=== PATIENT | male | born 1945 | race Caucasian/White ===

== ENCOUNTER 2025-02-08 18:54 | Inpatient (IN) | payer MEDICARE, SELFPAY ==
[2025-02-08] VITALS (10 sets, daily range): BP systolic 149–166; BP diastolic 60–92; BMI 28.0
[2025-02-08 15:48] LABS: Hematocrit 38.0 % (39.0-52.0); Hemoglobin 11.5 g/dL (13.0-18.0); Mean Corp Hgb Conc. 30.3 g/dL (33.0-37.0); Mean Corpuscular Volume 79.8 fL (80.0-94.0); Nucleated Red Blood Cells % 0 % (-); Platelet Count 227 10^3/uL (130-400); Red Cell Dist. Width 16.9 % (11.5-14.5)
[2025-02-08 16:05] LABS: ALT (SGPT) 18 U/L (0-50); AST (SGOT) 21 U/L (17-59); Albumin 4.5 g/dl (3.5-5.0); Alkaline Phosphatase 106 U/L (38-126); Blood Urea Nitrogen 18 mg/dl (9-20); Calcium 9.4 mg/dl (8.4-10.2); Carbon Dioxide 24 mmol/L (22-30); Chloride 104 mmol/L (98-107); Glucose 97 mg/dl (70-99); Potassium 4.4 mmol/L (3.5-5.1); Sodium 136 mmol/L (135-145); Total Protein 7.1 g/dl (6.3-8.2); eGFR 56.58
[2025-02-08 16:19] LABS: Troponin I 0.107 ng/ml
--- NOTE | 2025-02-08 16:24 | ED.GENMED ---
History of Present Illness
<Víctor Romano PA-C - Last Filed: 02/08/25 17:41>
General
Chief Complaint: Breathing Problem
Source: patient
Exam Limitations: none
Time Seen by Provider: 02/08/25 16:07
History of Present Illness
History of Present Illness:
79-year-old male with history of peripheral vascular disease, bronchiectasis, GERD on aspirin and Plavix presents with worsening leg swelling shortness of breath and chest tightness over the past several days. He lives in [facility] and is
visiting for the holiday. He also notes that his about 2 weeks ago. He has never been diagnosed with congestive heart failure. He is never been told he has an abnormal EKG. He notes shortness of breath while my exam is ongoing but
denies any current chest pain. No recent travel or surgery. He does have stents in his legs. No other complaints at this time
Phy Exam
<Víctor Romano PA-C - Last Filed: 02/08/25 17:41>
Physical Exam
Physical Exam:
General: Well-appearing male no acute respiratory distress HEENT: Normal cephalic atraumatic
Heart: Regular rate and rhythm lungs: No obvious wheeze or rails
Abdomen is soft and nontender remedies: Significant pitting edema bilateral lower extremities spreading into the thighs
Skin is warm no rash
Scores
<Víctor Romano PA-C - Last Filed: 02/08/25 17:41>
Heart Failure Risk
Heart Failure Risk Score: Not Applicable
Course
<Víctor Romano PA-C - Last Filed: 02/08/25 17:41>
Orders/Labs/Results
Orders:
Orders
02/08/25 15:17
Electrocardiogram (*1) Urgent
Reason for Study: Atrial Fibrillation
02/08/25 15:18
EKG- Treatment ONCE
02/08/25 15:30
CMP [Comprehensive Metabolic Panel] Urgent
Complete Blood Count/With Diff Urgent
Ferritin Urgent
Iron Urgent
NT-proBNP Urgent
Total Iron Binding Urgent
Troponin I Urgent
02/08/25 16:24
CR Chest Portable - 1 View Urgent
Comment:
Reason For Exam: sob, chest pain
Reason Study Needs to be Portable: Patient Unstable
02/08/25 16:40
Echo 2D MMode Color/Doppler Urgent
Reason for Study: SOB, abnormal EKG, elevated trop
02/08/25 16:55
PTT Urgent
Comment: Obtain baseline before beginning heparin infusion if not already collected
Heparin Protocol- PTT Orders As Directed
PTT per Heparin protocol: -Obtain CBC and baseline PTT - if not already collected.
-Obtain PTT 6 hours from start of infusion. Then, every 6 hours until 2 consecutive
PTT's are therapeutic. Then, PTT Daily.
-With each rate change, obtain PTT every 6 hours until 2 consecutive PTT's are
therapeutic. Then, PTT Daily.
Notify MD As Directed
Notify physician if: PTT is greater than or equal to 200.
02/08/25 16:56
Heparin 4,000 units IV NOW STA
Nursing to Place Non Medication Order As Directed
Physician Order: PTT 6 hours after initial start of Heparin infusion
02/08/25 16:57
Furosemide [Lasix] 40 mg IV NOW STA
02/08/25 16:58
Add On- LAB Routine
Tests Added?: % sat, ferritin, serum iron, TIBC
02/08/25 17:00
Heparin 64507 Units/250 ml 25,000 units in 250 ml IV PER PROTOCOL
Weight to be used for heparin protocol in kilograms (kg):: 97.5
Protocol:: Cardiac Tx/Acute Coronary
PTT Goal Range to be used:: PTT 73 to 111 seconds
Order type:: Initial
INITIAL Infusion Dose (UNITS/KG/hr) & then follow protocol:: 12 units/kg/hr
Infusion Dose in UNITS/hr & then follow protocol (UNITS/hr):: 1,000
INFUSION RATE in mL/hr & then follow protocol (mL/hr):: 10
PTT less than or equal to 64 seconds:: Increase rate by 200 units/hr (+ 2 mL/hr)
PTT 64.1 to 72.9 seconds:: Increase rate by 100 units/hr (+ 1 mL/hr)
PTT 73 to 111 seconds:: Target Range. No change in rate.
PTT 111.1 to 130.9 seconds:: Decrease rate by 100 units/hr (- 1 mL/hr)
PTT 131 to 199.9 seconds:: HOLD for 1 hr. Then decrease rate by 200 units/hr (- 2 mL/hr)
PTT greater than or equal to 200 seconds:: HOLD for 2 hrs & Notify Provider. Then decrease by 200 units/hr (-
2 mL/hr)
Lab follow-up:: Each change, PTT q6h until 2 consecutive are therapeutic. Then PTT
daily.
Heparin 77396 Units/250 ml 25,000 units in 250 ml IV PER PROTOCOL
Weight to be used for heparin protocol in kilograms (kg):: 97.5
Protocol:: Cardiac Tx/Acute Coronary
PTT Goal Range to be used:: PTT 73 to 111 seconds
Order type:: Initial
INITIAL Infusion Dose (UNITS/KG/hr) & then follow protocol:: 12 units/kg/hr
Infusion Dose in UNITS/hr & then follow protocol (UNITS/hr):: 1,000
INFUSION RATE in mL/hr & then follow protocol (mL/hr):: 10
PTT less than or equal to 64 seconds:: Increase rate by 200 units/hr (+ 2 mL/hr)
PTT 64.1 to 72.9 seconds:: Increase rate by 100 units/hr (+ 1 mL/hr)
PTT 73 to 111 seconds:: Target Range. No change in rate.
PTT 111.1 to 130.9 seconds:: Decrease rate by 100 units/hr (- 1 mL/hr)
PTT 131 to 199.9 seconds:: HOLD for 1 hr. Then decrease rate by 200 units/hr (- 2 mL/hr)
PTT greater than or equal to 200 seconds:: HOLD for 2 hrs & Notify Provider. Then decrease by 200 units/hr (-
2 mL/hr)
Lab follow-up:: Each change, PTT q6h until 2 consecutive are therapeutic. Then PTT
daily.
Pharmacy Request to Place See Dose Instructions IV DIRECTED
02/08/25 21:00
Electrocardiogram (*1) Routine
Reason for Study: Abnormal EKG
Troponin I Q6H
02/09/25 03:00
Troponin I Q6H
02/09/25 06:00
Electrocardiogram (*1) IN AM
Reason for Study: Abnormal EKG
02/10/25 06:00
Complete Blood Count/No Diff Q2D
Comment: Notify MD if platelet count is <130,000 or decreases by 50% from baseline
02/12/25 06:00
Complete Blood Count/No Diff Q2D
Comment: Notify MD if platelet count is <130,000 or decreases by 50% from baseline
02/14/25 06:00
Complete Blood Count/No Diff Q2D
Comment: Notify MD if platelet count is <130,000 or decreases by 50% from baseline
02/16/25 06:00
Complete Blood Count/No Diff Q2D
Comment: Notify MD if platelet count is <130,000 or decreases by 50% from baseline
02/18/25 06:00
Complete Blood Count/No Diff Q2D
Comment: Notify MD if platelet count is <130,000 or decreases by 50% from baseline
02/20/25 06:00
Complete Blood Count/No Diff Q2D
Comment: Notify MD if platelet count is <130,000 or decreases by 50% from baseline
02/22/25 06:00
Complete Blood Count/No Diff Q2D
Comment: Notify if platelet count is <130,000 or decreases by 50% from baseline
02/24/25 06:00
Complete Blood Count/No Diff Q2D
Comment: Notify MD if platelet count is <130,000 or decreases by 50% from baseline
Abnormal Lab Results
02/08/25
15:30
Hgb 11.5 L g/dL
(13.0-18.0)
Hct 38.0 L %
(39.0-52.0)
MCV 79.8 L fL
(80.0-94.0)
MCH 24.2 L pg
(27.0-31.0)
MCHC 30.3 L g/dL
(33.0-37.0)
RDW 16.9 H %
(11.5-14.5)
Absolute Lymphs (auto) 0.9 L 10^3/uL
(1.2-3.4)
Lymphocytes % 15.2 L %
(20.5-51.1)
Monocytes % 10.2 H %
(1.7-9.3)
Iron 34 L ug/dl
(49-181)
Troponin I 0.107 H* ng/ml
02/08/25 15:30
02/08/25 15:30
Vital Signs
Initial and Last Documented VS:
Initial Vital Signs
Temp Pulse Resp BP Pulse Ox
97.7 F 58 16 158/67 91
02/08/25 15:08 02/08/25 15:08 02/08/25 15:08 02/08/25 15:08 02/08/25 15:08
Last Documented Vital Signs
Temp Pulse Resp BP Pulse Ox
97.7 F 56 20 163/60 96
02/08/25 15:08 02/08/25 16:00 02/08/25 16:00 02/08/25 16:00 02/08/25 16:27
<Wil Judd MD - Last Filed: 02/08/25 17:27>
Orders/Labs/Results
Orders:
Orders
02/08/25 15:17
Electrocardiogram (*1) Urgent
Reason for Study: Atrial Fibrillation
02/08/25 15:18
EKG- Treatment ONCE
02/08/25 15:30
CMP [Comprehensive Metabolic Panel] Urgent
Complete Blood Count/With Diff Urgent
Ferritin Urgent
Iron Urgent
NT-proBNP Urgent
Total Iron Binding Urgent
Troponin I Urgent
02/08/25 16:24
CR Chest Portable - 1 View Urgent
Comment:
Reason For Exam: sob, chest pain
Reason Study Needs to be Portable: Patient Unstable
02/08/25 16:40
Echo 2D MMode Color/Doppler Urgent
Reason for Study: SOB, abnormal EKG, elevated trop
02/08/25 16:55
PTT Urgent
Comment: Obtain baseline before beginning heparin infusion if not already collected
Heparin Protocol- PTT Orders As Directed
PTT per Heparin protocol: -Obtain CBC and baseline PTT - if not already collected.
-Obtain PTT 6 hours from start of infusion. Then, every 6 hours until 2 consecutive
PTT's are therapeutic. Then, PTT Daily.
-With each rate change, obtain PTT every 6 hours until 2 consecutive PTT's are
therapeutic. Then, PTT Daily.
Notify MD As Directed
Notify physician if: PTT is greater than or equal to 200.
02/08/25 16:56
Heparin 4,000 units IV NOW STA
Nursing to Place Non Medication Order As Directed
Physician Order: PTT 6 hours after initial start of Heparin infusion
02/08/25 16:57
Furosemide [Lasix] 40 mg IV NOW STA
02/08/25 16:58
Add On- LAB Routine
Tests Added?: % sat, ferritin, serum iron, TIBC
02/08/25 17:00
Heparin 01199 Units/250 ml 25,000 units in 250 ml IV PER PROTOCOL
Weight to be used for heparin protocol in kilograms (kg):: 97.5
Protocol:: Cardiac Tx/Acute Coronary
PTT Goal Range to be used:: PTT 73 to 111 seconds
Order type:: Initial
INITIAL Infusion Dose (UNITS/KG/hr) & then follow protocol:: 12 units/kg/hr
Infusion Dose in UNITS/hr & then follow protocol (UNITS/hr):: 1,000
INFUSION RATE in mL/hr & then follow protocol (mL/hr):: 10
PTT less than or equal to 64 seconds:: Increase rate by 200 units/hr (+ 2 mL/hr)
PTT 64.1 to 72.9 seconds:: Increase rate by 100 units/hr (+ 1 mL/hr)
PTT 73 to 111 seconds:: Target Range. No change in rate.
PTT 111.1 to 130.9 seconds:: Decrease rate by 100 units/hr (- 1 mL/hr)
PTT 131 to 199.9 seconds:: HOLD for 1 hr. Then decrease rate by 200 units/hr (- 2 mL/hr)
PTT greater than or equal to 200 seconds:: HOLD for 2 hrs & Notify Provider. Then decrease by 200 units/hr (-
2 mL/hr)
Lab follow-up:: Each change, PTT q6h until 2 consecutive are therapeutic. Then PTT
daily.
Heparin 64430 Units/250 ml 25,000 units in 250 ml IV PER PROTOCOL
Weight to be used for heparin protocol in kilograms (kg):: 97.5
Protocol:: Cardiac Tx/Acute Coronary
PTT Goal Range to be used:: PTT 73 to 111 seconds
Order type:: Initial
INITIAL Infusion Dose (UNITS/KG/hr) & then follow protocol:: 12 units/kg/hr
Infusion Dose in UNITS/hr & then follow protocol (UNITS/hr):: 1,000
INFUSION RATE in mL/hr & then follow protocol (mL/hr):: 10
PTT less than or equal to 64 seconds:: Increase rate by 200 units/hr (+ 2 mL/hr)
PTT 64.1 to 72.9 seconds:: Increase rate by 100 units/hr (+ 1 mL/hr)
PTT 73 to 111 seconds:: Target Range. No change in rate.
PTT 111.1 to 130.9 seconds:: Decrease rate by 100 units/hr (- 1 mL/hr)
PTT 131 to 199.9 seconds:: HOLD for 1 hr. Then decrease rate by 200 units/hr (- 2 mL/hr)
PTT greater than or equal to 200 seconds:: HOLD for 2 hrs & Notify Provider. Then decrease by 200 units/hr (-
2 mL/hr)
Lab follow-up:: Each change, PTT q6h until 2 consecutive are therapeutic. Then PTT
daily.
Pharmacy Request to Place See Dose Instructions IV DIRECTED
02/08/25 21:00
Electrocardiogram (*1) Routine
Reason for Study: Abnormal EKG
Troponin I Q6H
02/09/25 03:00
Troponin I Q6H
02/09/25 06:00
Electrocardiogram (*1) IN AM
Reason for Study: Abnormal EKG
02/10/25 06:00
Complete Blood Count/No Diff Q2D
Comment: Notify MD if platelet count is <130,000 or decreases by 50% from baseline
02/12/25 06:00
Complete Blood Count/No Diff Q2D
Comment: Notify MD if platelet count is <130,000 or decreases by 50% from baseline
02/14/25 06:00
Complete Blood Count/No Diff Q2D
Comment: Notify MD if platelet count is <130,000 or decreases by 50% from baseline
02/16/25 06:00
Complete Blood Count/No Diff Q2D
Comment: Notify MD if platelet count is <130,000 or decreases by 50% from baseline
02/18/25 06:00
Complete Blood Count/No Diff Q2D
Comment: Notify MD if platelet count is <130,000 or decreases by 50% from baseline
02/20/25 06:00
Complete Blood Count/No Diff Q2D
Comment: Notify MD if platelet count is <130,000 or decreases by 50% from baseline
02/22/25 06:00
Complete Blood Count/No Diff Q2D
Comment: Notify MD if platelet count is <130,000 or decreases by 50% from baseline
02/24/25 06:00
Complete Blood Count/No Diff Q2D
Comment: Notify MD if platelet count is <130,000 or decreases by 50% from baseline
Abnormal Lab Results
02/08/25
15:30
Hgb 11.5 L g/dL
(13.0-18.0)
Hct 38.0 L %
(39.0-52.0)
MCV 79.8 L fL
(80.0-94.0)
MCH 24.2 L pg
(27.0-31.0)
MCHC 30.3 L g/dL
(33.0-37.0)
RDW 16.9 H %
(11.5-14.5)
Absolute Lymphs (auto) 0.9 L 10^3/uL
(1.2-3.4)
Lymphocytes % 15.2 L %
(20.5-51.1)
Monocytes % 10.2 H %
(1.7-9.3)
Iron 34 L ug/dl
(49-181)
Troponin I 0.107 H* ng/ml
02/08/25 15:30
02/08/25 15:30
Vital Signs
Initial and Last Documented VS:
Initial Vital Signs
Temp Pulse Resp BP Pulse Ox
97.7 F 58 16 158/67 91
02/08/25 15:08 02/08/25 15:08 02/08/25 15:08 02/08/25 15:08 02/08/25 15:08
Last Documented Vital Signs
Temp Pulse Resp BP Pulse Ox
97.7 F 56 20 163/60 96
02/08/25 15:08 02/08/25 16:00 02/08/25 16:00 02/08/25 16:00 02/08/25 16:27
<Víctor Romano PA-C - Last Filed: 02/08/25 17:41>
MDM/Problems Addressed
Differential Diagnosis Includes:
Patient here with chest tightness and shortness of breath worsening over several days. Consider ACS versus CHF. Versus pneumonia versus bronchiectasis exacerbation.
Patient does appear volume overloaded. He is uncertain of weight gain but BNP is 12,000. EKG shows sinus bradycardia with T wave inversions laterally. Troponin is 0.1. We discussed emergency room attending and cardiology. Chest x-ray pending I
suspect patient will need to stay in the hospital for CHF versus ACS
<Víctor Romano PA-C - Last Filed: 02/08/25 17:41>
*Pulse Oximetry
SaO2: 96
Oxygen Mode of Delivery: Room air
Patient hypoxic: no
*Critical Care Note
Total Time (30-74mins, 75-104mins- exclusive of procedures): Not Applicable
<Víctor Romano PA-C - Last Filed: 02/08/25 17:41>
Update Note
Update Note:
Last troponin is 0.1 with BNP of over 12,000. Chest x-ray shows mild cardiomegaly and pulmonary edema. Discussed with emergency room attending as well as cardiology. Cardiology did not see patient ordered echocardiogram. Heparin Lasix ordered.
Plans to admit to hospitalist service to the [facility]
ED Attending Note
<Víctor Romano PA-C - Last Filed: 02/08/25 17:41>
-
Portions of this chart may have been created with voice recognition software.� Occasional wrong word or��sound alike� substitutions may have occurred due to the inherent limitations of voice recognition software.
<Wil Judd MD - Last Filed: 02/08/25 17:27>
ED Attending Note
Patient seen and examined by attending physician: Yes
I performed the substantive portion of visit, reviewed & personally made and approve the management plan that is documented in note by myself or CECY.: Yes
ED Attending Note:
79-year-old male complaining of exertional shortness of breath and chest pressure and nocturnal dyspnea on exertion and PND. Progressive over 10 days. No history of CAD. History of hypertension cholesterol atrial fibrillation. Patient is on
clopidogrel. History of vascular disease.
On exam patient is nontoxic no distress. Lungs are clear and equal. Do not hear any obvious rales. Heart regular rate and rhythm no murmur. Abdomen nontender. Extremity with chronic vascular changes. Perfusing well however. Grossly nonfocal.
EKG shows ischemic changes 20. Troponin indeterminant. proBNP elevated.
Patient clearly describing unstable angina. Refer to cardiology. Diuretics heparin and admission for further care.
Discharge Plan
Departure
Patient Disposition: Admit
Date of Disposition: 02/08/25
Time of Disposition: 17:41
Presentation/result/management discussed w/ accepting MD/DO: Hospitalist
Discharge Problem:
Chest pain
Prescriptions:
No Action
atorvastatin [Lipitor] 80 mg Tablet
80 mg PO DAILY
acetaminophen [Tylenol] 325 mg Tablet
650 mg PO Q6HPRN PRN (Reason: mild pain)
famotidine [Pepcid AC] 10 mg Tablet
10 mg PO DAILY
azithromycin 250 mg Tablet
250 mg PO MOWEFR
diltiazem HCl 360 mg Capsule,Extended Release 24 Hr
360 mg PO DAILY
clopidogrel [Plavix] 75 mg Tablet
75 mg PO DAILY
aspirin 81 mg Tablet,Delayed Release (Dr/Ec)
81 mg PO DAILY
losartan 100 mg Tablet
100 mg PO DAILY
loratadine 10 mg Tablet
10 mg PO DAILY
metoprolol tartrate 25 mg Tablet
12.5 mg PO BID
Interventions
Interventions:
*Risk Screen - Suicide Last Done: 02/08/25 15:09
*General Assessment Last Done: 02/08/25 15:53
*Neglect/Abuse Screening Last Done: 02/08/25 15:09
*ED- Fall Risk Assessment Last Done: 02/08/25 15:53
*ED COVID-19 Vaccine History Last Done: 02/08/25 15:47
*ED Influenza Vaccine History Last Done: 02/08/25 15:47
ED- Cardiac Assessment Last Done: 02/08/25 15:53
ED- Pulmonary Assessment Last Done: 02/08/25 15:53
Discharge Date and Time
Print Language: GEORGIAN
--- NOTE | 2025-02-08 16:36 | CON.CAR ---
Addendum entered and electronically signed by Jose Blackwood DO 02/08/25 18:02:
I saw and examined the patient.
The Apparel Embroidery Digitizer's note was reviewed and I agree with the note.
Comment:
Plan:
Primary Rat Breeder: Dr. Funk with [facility] in [place], [place]
Assessment:
Presentation with SOB, LE edema
Acute CHF, unknown type
Abnormal EKG
Elevated troponin
PVD with prior LE stents
bronchiectasis
GERD
ECHO 02/08/2025: pending
Plan:
-Patient presents to [facility] due to worsening SOB, LE edema over the past 10 days. Found to have evidence of acute CHF with proBNP 59235. He has also had chest discomfort at times with exertion.
Evidence of volume overload with elevated proBNP 12,000.
Start Lasix 40 mg IV, likely increased to twice daily dosing.
Urgent echo with mildly reduced EF 30 to 35% with mild to moderate mitral regurgitation and moderate tricuspid regurgitation with severe pulmonary hypertension pulmonary artery pressure 62 mmHg
Monitor daily weights, I's and O's and creatinine.
Creatinine slightly elevated at 1.3, monitor with diuresis
With abnormal troponin 0.1, abnormal EKG with lateral T wave inversions, start IV heparin
Trend troponins and EKGs
Cont Metoprolol and losartan. Monitor cr
Continue aspirin and Plavix. The patient had been on Plavix for peripheral arterial disease.
The patient had prior stress testing earlier this year prior to his lower extremity procedure. He states he has had multiple procedures on his legs.
In light of his troponin, abnormal echo, heart failure and clinical scenario, likely cardiac catheterization during this hospitalization, prior to discharge
Discussed with ER, daughter at bedside
HPI: Patient is a 79-year-old male with past medical history of PVD, bronchiectasis, GERD who presented to [facility] ER due to worsening bilateral lower extremity edema, shortness of breath, chest tightness over the past 10 days. His
January 23 he states this was a stressor for him. Over the past 10 days he has noticed he has woken up typically in the morning with some chest discomfort and shortness of breath, typically pain will dissipate by around 10 AM. He also has had
worsening lower extremity edema which he states is unusual for him. He woke up this morning at 3 AM with the chest discomfort and shortness of breath and symptoms were more severe and persisted, prompting ER evaluation. Typically he resides in
[facility] and is visiting for the . He has been seen by inspector fuel hose in [place], and daughter is working on pulling up records. On arrival to the emergency room, proBNP elevated on arrival at 12,000. EKG with evidence of
lateral T wave abnormality with no prior to compare and troponin of 0.1. Cardiology consulted for evaluation. No present chest pain. Patient is chronically on aspirin and Plavix due to history of lower extremity stents. He denies any history of
coronary stenting, heart failure, cardiomyopathy, or valvular heart disease. He reports it was 'implied' that he had arrhythmia, but no clear history.
Original Note:
Consultation
Consultation Request
Date/Time Consultation Performed: 02/08/25
Requesting Provider: Deandre Melo PA-C
Performing Provider: Delmy Garcia PA-C for Dr. Blackwood
Reason for Consultation: EKG changes, elevated troponin, CHF
Medical History
-
Chief Complaint: SOB
History of Present Illness:
Patient is a 79-year-old male with past medical history of PVD, bronchiectasis, GERD who presented to [facility] ER due to worsening bilateral lower extremity edema, shortness of breath, chest tightness over the past 10 days. His January
he states this was a stressor for him. Over the past 10 days he has noticed he has woken up typically in the morning with some chest discomfort and shortness of breath, typically pain will dissipate by around 10 AM. He also has had worsening
lower extremity edema which he states is unusual for him. He woke up this morning at 3 AM with the chest discomfort and shortness of breath and symptoms were more severe and persisted, prompting ER evaluation. Typically he resides in [place] and is visiting for the . He has been seen by inspector fuel hose in [place], and daughter is working on pulling up records. On arrival to the emergency room, proBNP elevated on arrival at 12,000. EKG with evidence of lateral
T wave abnormality with no prior to compare and troponin of 0.1. Cardiology consulted for evaluation. No present chest pain. Patient is chronically on aspirin and Plavix due to history of lower extremity stents. He denies any history of coronary
stenting, heart failure, cardiomyopathy, or valvular heart disease. He reports it was 'implied' that he had arrhythmia, but no clear history.
PMH:
PVD with prior LE stents
bronchiectasis
GERD
Past Medical History
Past Medical History: Other (in HPI)
Social History
Personal:
Living: Alone
Employment: Retired
Family History
Family History: Reviewed & Not Pertinent
Allergies / Home Medications
Allergy/AdvReac Type Severity Reaction Status Date / Time
No Allergy Information Allergy Unverified 02/08/25 15:07
Available
Review of Systems
-
History Source: Patient
All other systems: Negative unless noted
Physical Exam
Vital Signs
Temp Pulse Resp BP Pulse Ox
97.7 F 56 20 163/60 96
02/08/25 15:08 02/08/25 16:00 02/08/25 16:00 02/08/25 16:00 02/08/25 16:27
Lab Results
02/08/25 15:30
02/08/25 15:30
Troponin I 0.107 ng/ml H* 02/08/25 15:30
Nlr-H-Kftpzfdtbin Pept 15941 pg/ml 02/08/25 15:30
Physical Exam
General: Well Developed, Well Nourished and No Apparent Distress
HEENT: Normocephalic and Moist Mucous Membranes
Respiratory: Crackles and Non Labored Respirations
Cardiac: Regular Rhythm
Musculoskeletal: No Clubbing, No Cyanosis and Edema
Skin: Warm and Dry
Neuro: AO x 3 and Nonfocal/Grossly Intact
Psych: Calm
Impression / Plan
-
Primary Rat Breeder: Dr. Funk with [facility] in [place], [place]
Assessment:
Presentation with SOB, LE edema
Acute CHF, unknown type
Abnormal EKG
Elevated troponin
PVD with prior LE stents
bronchiectasis
GERD
ECHO 02/08/2025: pending
Plan:
-Patient presents to [facility] due to worsening SOB, LE edema over the past 10 days. Found to have evidence of acute CHF with proBNP 05943.
-CXR pending
-No history of known CHF
-will attempt to diurese with IV lasix 40mg daily with now dose. Cr 1.3, follow w/ diuresis.
-Follow daily weights, I&Os.
-Trop 0.1 and abnormal EKG with lateral T wave abnormality. Trend trops and EKGs.
-Daughter pulling up old cardiology records on [employer].
-check urgent echo
-initiate IV heparin and continue asa, plavix. hgb 11.5. check iron studies
-likely plan for cath this admission
HPI: Patient is a 79-year-old male with past medical history of PVD, bronchiectasis, GERD who presented to [facility] ER due to worsening bilateral lower extremity edema, shortness of breath, chest tightness over the past 10 days. His
January 23 he states this was a stressor for him. Over the past 10 days he has noticed he has woken up typically in the morning with some chest discomfort and shortness of breath, typically pain will dissipate by around 10 AM. He also has had
worsening lower extremity edema which he states is unusual for him. He woke up this morning at 3 AM with the chest discomfort and shortness of breath and symptoms were more severe and persisted, prompting ER evaluation. Typically he resides in
[facility] and is visiting for the . He has been seen by inspector fuel hose in [place], and daughter is working on pulling up records. On arrival to the emergency room, proBNP elevated on arrival at 12,000. EKG with evidence of
lateral T wave abnormality with no prior to compare and troponin of 0.1. Cardiology consulted for evaluation. No present chest pain. Patient is chronically on aspirin and Plavix due to history of lower extremity stents. He denies any history of
coronary stenting, heart failure, cardiomyopathy, or valvular heart disease. He reports it was 'implied' that he had arrhythmia, but no clear history.
Data Reviewed
-
EKG: Tracing Personally Visualized and interpreted
Radiology: Report Reviewed by me
Labs: Labs Reviewed by me
Old Records: Reviewed
[2025-02-08 17:35] LABS: Iron 34 ug/dl (49-181)
[2025-02-08 17:43] LABS: Total Iron Binding Capacity 395 ug/dl (261-462)
--- NOTE | 2025-02-08 17:47 | HPS.HSE ---
Family Physician
-
Family Physician:
Chief Complaint
-
Chest Pain, Lower Extremity Edema and Shortness of Breath
History of Present Illness
Patient is a 79 y/o male past medical history of PAD, hypertension, hyperlipidemia, and bronchiectasis who presents with lower extremity edema, shortness of breath and chest tightness worsening over the last 10 days. Patient notes symptoms were
much worse today prompting him to come to the emergency department for evaluation. Patient denies any prior history of coronary artery disease or stenting, heart failure, cardiomyopathy or valvular heart disease.
Medical History
Past Medical History
Past Medical History: Reports Other
Additional Past Medical History:
Peripheral Arterial Disease s/p RLE Stents
Arrhythmia
Essential Hypertension
Hyperlipidemia
Atrophic Right Kidney
Bronchiectasis
GERD
Past Surgical History: Reports Other
Additional Past Surgical History:
RLE Stents
Multiple Surgeriesfor wounds during [place]
Social History
Tobacco: Former Smoker (Quit ~25 years )
Alcohol: Daily
Family History
Family History: Not pertinent
Allergies / Home Medications
Allergies reflects when Allergies were last updated in [facility].
Home Medications with original date entered in [facility]
Allergy/Medication List:
Allergies
Allergy/AdvReac Type Severity Reaction Status Date / Time
hydrochlorothiazide Allergy Mild Nausea Verified 02/08/25 18:29
lisinopril Allergy Nausea Verified 02/08/25 18:29
Home Medications
acetaminophen 325 mg tablet (Tylenol) 650 mg PO Q6HPRN PRN mild pain 02/08/25
aspirin 81 mg tablet,delayed release 81 mg PO DAILY Blood Pressure 02/08/25
atorvastatin 80 mg tablet (Lipitor) 80 mg PO DAILY High Cholesterol 02/08/25
azithromycin 250 mg tablet 250 mg PO MOWEFR Infection 02/08/25
clopidogrel 75 mg tablet (Plavix) 75 mg PO DAILY Blood Clot Prevention/Tx 02/08/25
diltiazem HCl 360 mg capsule,24 hr,extended release 360 mg PO DAILY Heart Disease/Condition 02/08/25
famotidine 10 mg tablet (Pepcid AC) 10 mg PO DAILY Gastrointestinal Issue 02/08/25
loratadine 10 mg tablet 10 mg PO DAILY Allergies 02/08/25
losartan 100 mg tablet 100 mg PO DAILY Blood Pressure 02/08/25
metoprolol tartrate 25 mg tablet 12.5 mg PO BID Heart Disease/Condition 02/08/25
Review of Systems
-
A 12 point ROS was completed and negative except as noted: Yes
Constitutional: Denies Fever or Chills
Respiratory: Reports Trouble Breathing
Cardiac: Reports Chest Pain; Denies Palpitations
Musculoskeletal: Reports Edema
Physical Exam
Vital Signs
Vital Signs
Temp Pulse Resp BP Pulse Ox
97.7 F 56 20 163/60 96
02/08/25 15:08 02/08/25 16:00 02/08/25 16:00 02/08/25 16:00 02/08/25 16:27
Physical Exam
General: Comfortable and Conversant
HEENT: Anicteric and Moist mucous membranes
Respiratory: Rales (Bilateral bases, right greater left)
Cardiac: S1/S2, Regular Rhythm and Murmur
GI: Soft and Non Tender
Genito-urinary: Clear Urine
Musculoskeletal: No Clubbing, No Cyanosis and Other (Pitting edema bilateral lower extremities extending from ankles up to the thighs)
Skin: Warm and Dry
Neuro: Awake, Alert, Oriented and Nonfocal/grossly intact
Psych: Calm
Laboratory Results
-
02/08/25 15:30
02/08/25 15:30
Laboratory Results
Total Bilirubin 0.8 mg/dl (0.2-1.3) 02/08/25 15:30
AST 21 U/L (17-59) 02/08/25 15:30
ALT 18 U/L (0-50) 02/08/25 15:30
Alkaline Phosphatase 106 U/L (38-126) 02/08/25 15:30
Troponin I 0.107 ng/ml H* 02/08/25 15:30
Data Reviewed
-
Lab Data: Labs Reviewed by me
Impression/Plan
-
Acute Heart Failure with Reduced EF
-Echo Jan 2025: Top normal left ventricular chamber size with moderately reduced left ventricular systolic function with ejection fraction 30 to 35%. Global hypokinesis. Mild left ventricular hypertrophy. Mild to moderate mitral regurgitation.
-Appreciate Cardiology Consult
-Continue Lasix 40mg IV Daily
-Monitor Daily Weights
Elevated Troponin, clinical concern for ischemia with inverted T waves in lateral leads
-Continue to trend troponin
-Continue heparin drip
-Continue aspirin and clopidogrel
-Tentative plan for cardiac cath on Thursday
Iron-Deficiency Anemia
-Patient reports he did have a colonoscopy earlier this year and had a precancerous polyp removed. He was scheduled for repeat colonoscopy in December which he cancelled due to his 's illness
-Heme-test stools
-Consider starting iron supplement
Unspecified Arrhythmia
-Continue metoprolol and diltiazem
Essential Hypertension
-Continue diltiazem, losartan and metoprolol
Hyperlipidemia
-Continue atorvastatin
Bronchiectasis
-Continue azithromycin
GERD
-Continue Pepcid
DVT proph: Heparin Drip
Code Status: Full Code
[2025-02-08 17:59] LABS: APTT 31.0 Sec (23.4-35.0)
[2025-02-08] MEDS: LASIX 40 MG IV (18:02)
[2025-02-08] MEDS: HEPARIN 25000 UNITS/250 ML IV (18:06)
[2025-02-08] MEDS: HEPARIN 4000 UNITS IV (18:06)
--- NOTE | 2025-02-08 18:20 | W.PN.UPDATE ---
Update Note
Progress Note Update
Seen and examined by me independently in collaboration with ZABRINA Esparza.
Past medical history/social history/medication/allergies reviewed.
Lab data and imaging data reviewed.
Patient who is behaving at his 's which was 2 weeks ago is with the family here in town. He is from [place].
He was having progressive shortness of breath and chest discomfort on lower extremity edema.
No prior history of [place]/CAD or CHF.
Heart sound S1 plus S2 heard regular no murmur evident. Chest sounds clear.
Hepatojugular reflux present. Bilateral lower extremity edema present.
Troponin 0.1. BNP elevated 12,000 with normal creatinine. EKG shows a sinus rhythm with a lateral ST depressions concerning for ischemia
Echo this evening shows moderately reduced EF with ejection fraction of 30 to 35%, global hypokinesis and LVH. Mild to moderate MR noted. Moderate tricuspid regurgitation with pulmonary artery pressure of 62 noted. Has prior history of
bronchiectasis.
Chest x-ray report pending but pulmonary vascular congestion evident [my read].
Clinical picture of acute heart failure with reduced EF. EKG is concerning for ischemia but troponins are only mildly elevated. No chest pain currently.
Admit to IVU. Start on IV heparin. Continue with antiplatelet agents per cardiology.
Start on IV Lasix.
Mildly low hemoglobin 11.5 noted, MCV is borderline low , and iron iron studies raises concern for iron deficiency. Patient apparently had blood in the stool which led on to colonoscopy which showed polyp which was apparently cancerous and had to
go in and have another colonoscopy for the polyp removal. He is due for another colonoscopy in December and then his got sick.
Check heme test stools. Follow ferritin. Follow hemoglobin.
Full code
Discussed with daughter at bedside
[2025-02-08 19:14] LABS: Ferritin 47.3 ng/ml (17.9-464.0)
--- NOTE | 2025-02-08 19:45 | PTCARENOTE ---
Pt admitted from ED to room 2244, aaox3, voicing no complaints of cp or SOB. Heparin gtt infusing at 1000cc/hr. SR on tele, HR mid 70's, Pox 95% @ 2L via NC. Admission questioners and skin assessment completed. Updated pt and daughter on POC and in
agreement. Call light within reach.
[2025-02-08] MEDS: LOPRESSOR 12.5 MG PO (20:45)
[2025-02-09] VITALS (8 sets, daily range): BP systolic 122–167; BP diastolic 52–76; BMI 27.5
[2025-02-09 00:29] LABS: APTT 56.5 Sec (23.4-35.0)
[2025-02-09 00:46] LABS: Troponin I 0.100 ng/ml
[2025-02-09 04:41] LABS: Blood Urea Nitrogen 19 mg/dl (9-20); Calcium 9.1 mg/dl (8.4-10.2); Carbon Dioxide 26 mmol/L (22-30); Chloride 106 mmol/L (98-107); Estimated Creatinine Clearance 57 ml/min; Glucose 91 mg/dl (70-99); HDL Cholesterol 52 mg/dl; LDL Cholesterol, Calculated 31 mg/dl; Magnesium 1.8 mg/dl (1.6-2.3); Potassium 4.0 mmol/L (3.5-5.1); Sodium 136 mmol/L (135-145); Very Low Density Lipoprotein 15 mg/dl (0-30); eGFR > 60.00
[2025-02-09] MEDS: LASIX 40 MG IV ×2 (06:18→17:59)
--- NOTE | 2025-02-09 06:45 | PTCARENOTE ---
Pt woke up complaining of difficulty breathing and some chest tightness but stating that is 'not as bad as yesterday'. BP 150/72, Pox 97% on 2L, lungs diminished w/ scattered fine crackles at bases. adjunct faculty for medical terminology DECK WORKER made aware, new order to give 0800
dose lasix now. Pt sitting up higher in bed,stating that is feeling better already shortly after lasix was given and was repositioned in bed.
--- NOTE | 2025-02-09 07:29 | W.PN.CARDCBS ---
Today's Communication / Plan
-
Likely progressive heart failure with significant volume overload. He continues with significant orthopnea. Lasix was given early a.m. February 09.
Increase Lasix to 40 mg IV twice daily
Monitor I's and O's, daily weights and creatinine. Creatinine slightly improved from 1.3 to 1.2 with diuresis.
Reviewed urgent echo with patient from February 08, 2025. With ejection fraction 30 to 35%, abnormal EKG and non-STEMI, discussed cardiac catheterization left heart and he was agreeable to this. This will be scheduled for February 10, 2025.
Continue IV heparin anticoagulation
Continue aspirin and Plavix. The patient had been on Plavix for peripheral arterial disease.
With microcytic anemia, primary service heme testing stools
Urgent echo with mildly reduced EF 30 to 35% with mild to moderate mitral regurgitation and moderate tricuspid regurgitation with severe pulmonary hypertension pulmonary artery pressure 62 mmHg
Monitor daily weights, I's and O's and creatinine.
Creatinine slightly elevated at 1.3, monitor with diuresis
Cont beta-jenifer and transition metoprolol to Coreg 12.5 mg twice daily and likely continue to titrate.
Continue outpatient losartan 100 mg daily.
Would eventually wean off Cardizem if possible given HF but may need currently for HTN
Eventual Aldactone and consider SGLT2 inhibitor.
The patient had prior stress testing earlier this year prior to his lower extremity procedure. He states he has had multiple procedures on his legs.
Discussed with daughter Elizabeth Alvarez via telephone, cell number [phone]
Impression / Plan
-
.
Primary Batch Trucker: Dr. Funk with [facility] in [place], [place]
Impression:
Presentation with SOB, LE edema
Acute on subacute heart failure with reduced LV function
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
Abnormal EKG with lateral ST-T wave changes
Elevated troponin peak 0.1
Mild to moderate mitral regurgitation
Moderate tricuspid regurgitation with severe pulmonary hypertension, PASP 62 mmHg
Microcytic anemia
history PVD with prior LE stents
Bronchiectasis
GERD
Past smoker quit 25 years ago
Daily alcohol, 2 drinks a day
ECHO 02/08/2025: Top normal left ventricular chamber size with moderately reduced left ventricular systolic function with ejection fraction 30 to 35%. Global hypokinesis. Mild left ventricular hypertrophy. Mild to moderate mitral
regurgitation.Moderate tricuspid regurgitation pulmonary artery pressure 62 mmHg, severe pulmonary hypertension.
Plan:
-Patient presents to [facility] due to worsening SOB, LE edema over the past 10 days. Found to have evidence of acute CHF with proBNP 24361. He has also had chest discomfort at times with exertion.
Likely progressive heart failure with significant volume overload. He continues with significant orthopnea. Lasix was given early a.m. February 09.
Increase Lasix to 40 mg IV twice daily
Monitor I's and O's, daily weights and creatinine. Creatinine slightly improved from 1.3 to 1.2 with diuresis.
Reviewed urgent echo with patient from February 08, 2025. With ejection fraction 30 to 35%, abnormal EKG and non-STEMI, discussed cardiac catheterization left heart and he was agreeable to this. This will be scheduled for February 10, 2025.
Continue IV heparin anticoagulation
Continue aspirin and Plavix. The patient had been on Plavix for peripheral arterial disease.
With microcytic anemia, primary service heme testing stools
Urgent echo with mildly reduced EF 30 to 35% with mild to moderate mitral regurgitation and moderate tricuspid regurgitation with severe pulmonary hypertension pulmonary artery pressure 62 mmHg
Monitor daily weights, I's and O's and creatinine.
Creatinine slightly elevated at 1.3, monitor with diuresis
Cont beta-jenifer and transition metoprolol to Coreg 12.5 mg twice daily and likely continue to titrate.
Continue outpatient losartan 100 mg daily.
Would eventually wean off Cardizem if possible given HF but may need currently for HTN
Eventual Aldactone and consider SGLT2 inhibitor.
The patient had prior stress testing earlier this year prior to his lower extremity procedure. He states he has had multiple procedures on his legs.
Discussed with daughter Elizabeth Alvarez via telephone, cell number [phone]
HPI: Patient is a 79-year-old male with past medical history of PVD, bronchiectasis, GERD who presented to [facility] ER due to worsening bilateral lower extremity edema, shortness of breath, chest tightness over the past 10 days. His
January 23 he states this was a stressor for him. Over the past 10 days he has noticed he has woken up typically in the morning with some chest discomfort and shortness of breath, typically pain will dissipate by around 10 AM. He also has had
worsening lower extremity edema which he states is unusual for him. He woke up this morning at 3 AM with the chest discomfort and shortness of breath and symptoms were more severe and persisted, prompting ER evaluation. Typically he resides in
[facility] and is visiting for the . He has been seen by staff radiation therapist in [place], and daughter is working on pulling up records. On arrival to the emergency room, proBNP elevated on arrival at 12,000. EKG with evidence of
lateral T wave abnormality with no prior to compare and troponin of 0.1. Cardiology consulted for evaluation. No present chest pain. Patient is chronically on aspirin and Plavix due to history of lower extremity stents. He denies any history of
coronary stenting, heart failure, cardiomyopathy, or valvular heart disease. He reports it was 'implied' that he had arrhythmia, but no clear history.
Progress Note - Batch Trucker
Subjective
Date of Service: February 09, 2025
Pt seen and examined. Breathing improving. No chest pain. Still with orthopnea
Objective
Labs:
02/08/25 15:30
02/09/25 03:47
Labs
Hgb 11.5 g/dL (13.0-18.0) L 02/08/25 15:30
Hct 38.0 % (39.0-52.0) L 02/08/25 15:30
Plt Count 227 10^3/uL (130-400) 02/08/25 15:30
APTT 56.5 Sec (23.4-35.0) H 02/09/25 00:02
Sodium 136 mmol/L (135-145) 02/09/25 03:47
Potassium 4.0 mmol/L (3.5-5.1) 02/09/25 03:47
BUN 19 mg/dl (9-20) 02/09/25 03:47
Creatinine 1.2 mg/dL (0.7-1.3) 02/09/25 03:47
Glucose 91 mg/dl (70-99) 02/09/25 03:47
Troponins
02/08/25 02/09/25 02/09/25
15:30 00:02 03:00
Troponin I 0.107 H* 0.100 H* Cancelled
Vital Signs and I&O:
Vital Signs
Temp Pulse Resp BP Pulse Ox
98.2 F 83 18 150/72 92
02/09/25 07:11 02/09/25 07:11 02/09/25 07:11 02/09/25 06:18 02/09/25 07:11
Vital Signs
Temp Pulse Resp BP Pulse Ox
98.2 F 83 18 150/72 92
02/09/25 07:11 02/09/25 07:11 02/09/25 07:11 02/09/25 06:18 02/09/25 07:11
Intake & Output
02/07/25 02/08/25 02/09/25 02/10/25
06:59 06:59 06:59 06:59
Intake Total 340 / 340
Output Total 1600 / 1600 600 / 600
Balance -1260 / -1260 -600 / -600
Physical Exam
Physical Exam
General: No acute distress, AAOX3
Neck: Negative JVD
Heart: Regular, Negative S3 positive S1/S2, Negative S4, No murmur
Lungs: CTA b/l, negative wheezes/rales/rhonchi
Abd: Positive BS, NT/ND, neg rebound/rigidity/guarding
Ext: Negative cyanosis/clubbing/edema
Neuro: nonfocal
--- NOTE | 2025-02-09 08:20 | W.PN.HOSP.TC ---
Today's Communication/Plan
-
Continue with IV heparin
Continue with IV Lasix
Tentatively cardiac cath tomorrow
Assessment / Plan
Assessment / Plan
Acute Heart Failure with Reduced EF
-Echo Jan 2025: Top normal left ventricular chamber size with moderately reduced left ventricular systolic function with ejection fraction 30 to 35%. Global hypokinesis. Mild left ventricular hypertrophy. Mild to moderate mitral regurgitation.
-Appreciate Cardiology Consult
-Continue Lasix 40mg IV Daily
-Monitor Daily Weights. Monitor creatinine.
Elevated Troponin, clinical concern for ischemia with inverted T waves in lateral leads
-Continue to trend troponin
-Continue heparin drip
-Continue clopidogrel. He was on aspirin and Plavix at home
-Tentative plan for cardiac cath on Thursday
Iron-Deficiency Anemia
-Patient reports he did have a colonoscopy earlier this year and had a precancerous polyp removed. He was scheduled for repeat colonoscopy in December which he cancelled due to his 's illness
-Heme-test stools
- Start IV iron as patient has concurrent heart failure
Unspecified Arrhythmia
In sinus rhythm
-Continue metoprolol and diltiazem
Essential Hypertension
-Continue diltiazem, losartan and metoprolol
Hyperlipidemia
-Continue atorvastatin
Bronchiectasis
-Continue azithromycin
GERD
-Continue Pepcid
DVT proph: Heparin Drip
Code Status: Full Code
Discussed with RN
Discussed with cardiology this morning
Anticipated Discharge: > 48 hours
Subjective/Interval History
-
Date of Service: February 09, 2025
Feels better with regards to breathing when he sits up. He was feeling little short of breath this morning when he woke up and got Lasix early. He peed and he is feeling better.
Denies any chest pain.
No lightheadedness.
Objective Data
-
Labs:
Laboratory Results
02/09/25 02/09/25 02/09/25
00:02 03:47 07:55
APTT 56.5 H Pending
Sodium 136
Potassium 4.0
Chloride 106
Carbon Dioxide 26
BUN 19
Creatinine 1.2
Glucose 91
Calcium 9.1
Vital Signs:
Vital Signs
Temp Pulse Resp BP Pulse Ox
98.2 F 83 18 150/72 92
02/09/25 07:11 02/09/25 07:11 02/09/25 07:11 02/09/25 06:18 02/09/25 07:11
I&O
02/08/25 02/09/25 02/10/25
06:59 06:59 06:59
Intake Total 340 / 340
Output Total 1600 / 1600 600 / 600
Balance -1260 / -1260 -600 / -600
Physical Exam
-
General: No Apparent Distress
HEENT: Moist Mucous Membranes
Respiratory: Crackles (Right base today) and Non Labored Respirations; Negative Wheezes or Accessory Resp Muscle Use
Cardiac: Regular Rhythm and S1/S2
GI: Soft
Musculoskeletal: Edema, Right Lower Extrem and Edema, Left Lower Extrem
Neuro: AO x 3
Psych: Calm; Negative Confused
Data Reviewed
-
Labs: Labs Reviewed by me
[2025-02-09 09:18] LABS: APTT 53.8 Sec (23.4-35.0)
[2025-02-09] MEDS: CLARITIN 10 MG PO (09:45)
[2025-02-09] MEDS: LIPITOR 80 MG PO (09:45)
[2025-02-09] MEDS: COZAAR 100 MG PO (09:45)
[2025-02-09] MEDS: PEPCID 10 MG PO (09:46)
[2025-02-09] MEDS: CARDIZEM CD 360 MG PO (09:47)
[2025-02-09] MEDS: ASPIR LOW (ENTERIC COATED) 81 MG PO (09:47)
[2025-02-09] MEDS: PLAVIX 75 MG PO (09:47)
[2025-02-09] MEDS: LOPRESSOR PO (09:49)
[2025-02-09] MEDS: HEPARIN 25000 UNITS/250 ML IV (14:47)
[2025-02-09 17:19] LABS: APTT 63.4 Sec (23.4-35.0)
[2025-02-09] MEDS: FLUSH (NSS) 3 FLUSH IV (18:00)
[2025-02-09] MEDS: FERRLECIT 110 MG IV (18:00)
[2025-02-09] MEDS: COREG 12.5 MG PO (19:49)
--- NOTE | 2025-02-09 21:00 | PTCARENOTE ---
Pt aaox3, visiting with family at shift change, offers no complaints of SOB or CP. SR on tele with HR mid 70's, Pox 94% on 2L via NC. Voiding good amounts of clear yellow urine with out issues. Call conner within reach, POC ongoing.
[2025-02-10] VITALS (11 sets, daily range): BP systolic 110–145; BP diastolic 48–72; BMI 26.1
[2025-02-10 00:43] LABS: APTT > 200 Sec (23.4-35.0)
[2025-02-10 05:40] LABS: Hematocrit 33.3 % (39.0-52.0); Hemoglobin 10.2 g/dL (13.0-18.0); Mean Corp Hgb Conc. 30.6 g/dL (33.0-37.0); Mean Corpuscular Volume 78.4 fL (80.0-94.0); Platelet Count 198 10^3/uL (130-400); Red Cell Dist. Width 16.7 % (11.5-14.5)
[2025-02-10 05:52] LABS: Blood Urea Nitrogen 24 mg/dl (9-20); Calcium 8.8 mg/dl (8.4-10.2); Carbon Dioxide 32 mmol/L (22-30); Chloride 102 mmol/L (98-107); Estimated Creatinine Clearance 57 ml/min; Glucose 87 mg/dl (70-99); Potassium 3.6 mmol/L (3.5-5.1); Sodium 136 mmol/L (135-145); eGFR > 60.00
[2025-02-10] MEDS: KCL 40 MEQ PO (06:43)
[2025-02-10] MEDS: COREG 12.5 MG PO ×2 (07:43→20:21)
[2025-02-10] MEDS: CARDIZEM CD 360 MG PO (07:43)
[2025-02-10] MEDS: ASPIR LOW (ENTERIC COATED) 81 MG PO (07:44)
[2025-02-10] MEDS: LIPITOR 80 MG PO (07:44)
[2025-02-10] MEDS: PLAVIX 75 MG PO (07:44)
[2025-02-10] MEDS: COZAAR 100 MG PO (07:44)
[2025-02-10] MEDS: CLARITIN 10 MG PO (07:44)
[2025-02-10] MEDS: PEPCID 10 MG PO (07:44)
[2025-02-10] MEDS: LASIX 40 MG IV ×2 (07:45→17:30)
--- NOTE | 2025-02-10 08:29 | PTCARENOTE ---
Assumed care 0700. Patient AO x3. NSR on telemetry. Denies pain or shortness of breath, edema improved per patient, trace. Weaned to room air 93%, fine rales right base. NPO for cath procedure today, daughter at bedside
--- NOTE | 2025-02-10 09:08 | W.PN.HOSP.TC ---
Today's Communication/Plan
-
Cardiac cath today
Assessment / Plan
Assessment / Plan
Acute Heart Failure with Reduced EF
-Echo Jan 2025: Top normal left ventricular chamber size with moderately reduced left ventricular systolic function with ejection fraction 30 to 35%. Global hypokinesis. Mild left ventricular hypertrophy. Mild to moderate mitral regurgitation.
-Continue Lasix 40mg IV Daily
-Monitor Daily Weights. Monitor creatinine.
Elevated Troponin, clinical concern for ischemia with inverted T waves in lateral leads
-Continue to trend troponin
-Continue heparin drip
-Continue clopidogrel. He was on aspirin and Plavix at home
-Cardiac cath today
Iron-Deficiency Anemia
-Patient reports he did have a colonoscopy earlier this year and had a precancerous polyp removed. He was scheduled for repeat colonoscopy in December which he cancelled due to his 's illness
-Heme-test stools pending
- Started IV iron as patient has concurrent heart failure
- Follow HH
Unspecified Arrhythmia
In sinus rhythm
-On metoprolol and diltiazem
- With CM consider alternative to diltiazem
Essential Hypertension
-Continue diltiazem, losartan and metoprolol
Hyperlipidemia
-Continue atorvastatin
Bronchiectasis -no flare
-Continue azithromycin
GERD
-Continue Pepcid
DVT proph: Heparin Drip
Code Status: Full Code
Discussed with RN
Anticipated Discharge: > 48 hours
Subjective/Interval History
-
Date of Service: February 10, 2025
Denies any chest pain or shortness of breath today.
Await cardiac catheterization.
No nausea vomiting. No fever chills. No dizziness.
Objective Data
-
Labs:
Laboratory Results
02/09/25 02/10/25 02/10/25
23:59 05:00 08:50
WBC 4.5 L
Hgb 10.2 L
Hct 33.3 L
Plt Count 198
APTT > 200 H* Pending
Sodium 136
Potassium 3.6
Chloride 102
Carbon Dioxide 32 H
BUN 24 H
Creatinine 1.2
Glucose 87
Calcium 8.8
Vital Signs:
Vital Signs
Temp Pulse Resp BP Pulse Ox
98.3 F 79 18 131/66 93
02/10/25 08:00 02/10/25 07:45 02/10/25 08:00 02/10/25 07:38 02/10/25 08:00
I&O
02/09/25 02/10/25 02/11/25
06:59 06:59 06:59
Intake Total 340 / 340 1230 / 1230
Output Total 1600 / 1600 4450 / 4450
Balance -1260 / -1260 -3220 / -3220
Physical Exam
-
General: No Apparent Distress
Respiratory: Clear to Auscultation and Non Labored Respirations; Negative Accessory Resp Muscle Use
Cardiac: Regular Rhythm and S1/S2; Negative Tachycardic
GI: Soft
Musculoskeletal: No Edema
Neuro: AO x 3
Psych: Calm; Negative Confused
Data Reviewed
-
Labs: Labs Reviewed by me
[2025-02-10] MEDS: HEPARIN 25000 UNITS/250 ML IV (09:10)
[2025-02-10] MEDS: ZITHROMAX 250 MG PO (09:12)
[2025-02-10 09:33] LABS: APTT 96.6 Sec (23.4-35.0)
--- NOTE | 2025-02-10 10:09 | CM ---
Reviewed chart. Met with Mr. Kimball and his daughter to review discharge plans. He states prior to admission he resides alone in a second floor apartment with an elevator access. He states prior to admission he was independent with ambulation and
adls. He states he has a leg compression machine at home to use three a day to assist with circulation. He states he is currently not using it because it broke. He states they sent him a new part. He states he gets his medications [facility]
via mail order. Will need to see his current functional level to see if he has any skilled care needs. Medical work-up in progress. The discharge plan is to return home when medically stable.
--- NOTE | 2025-02-10 13:21 | PTCARENOTE ---
Report given to the woven label designer
--- NOTE | 2025-02-10 14:10 | PTCARENOTE ---
Patient sent to the mineral ore processing labourer
--- NOTE | 2025-02-10 15:51 | CONSULT.CT ---
Addendum entered and electronically signed by James Grullon MD 02/11/25 09:06:
I saw and examined the patient.
The PA's note was reviewed and I agree with the note.
Comment:
PREOP for CABG
CATH �� MVCAD (80% ostial LAD, 80-90% OM1, smaller terminal LPLB, and ELECTRIC SCOOP OPERATOR of RCA w/ L-to-R collaterals
ECHO � LVEF 30-35% (normal CO at� [facility]), mild-to-mod MR, mod TR w/ severe PHTN @ 62mmHg (44/15 at [facility]), trace NC
EKG � NSR w/ LAE, LVH
CXR � clear; sig distal aortic arch calcifications
LABS � Hgb/Hct 9.5/30.8; PLT 204; creat 1.3; alb 3.3
LAST DOSE OF PLAVIX 02/10
-��������� Check CT-C w/o contrast
-��������� Check carotid U/S assessment
-��������� Trend Hgb (11.5 on admission, 9.5 currently) � Hx of GI polyps � heme check stool; Hx of anemia
-��������� OR timing TBD
Original Note:
Consultation
-
Date/Time Consultation Requested: 02/10/25
Date/Time Consultation Performed: 02/10/25
Requesting Provider: Светлана Beverly MD
Performing Provider: Megan CROWE for James Grullon MD
Reason for Consultation: CABG evaluation
Patient History
Physicians
Family Physician: Maria M Arnett MD
Outpatient Ice Cream Server: Reji Funk MD ([facility])
Inpatient Ice Cream Server: Светлана Beverly MD
History of Present Illness
79 year old right hand dominant male with PMH significant for PVD w/RLE stenting in 2008, was visiting family locally (patient from [place]), and experienced worsening SOB, LE edema, and exertional chest discomfort over the past 10 days. His
2 weeks ago. He was admitted to [facility] ED on 02/08/25 with acute CHF (proBNP 77892)/troponin 0.107. He was treated with IV heparin and diuresed well with Lasix, with significant weight reduction (97.5>87.2kg). Urgent TTE on reported an EF of
30-35%. Therefore, home diltiazem was discontinued and patient transitioned to carvedilol. Patient was taken for left heart catheterization on 02/10/2025 which reported multivessel disease (official report pending). Last dose of Plavix was
02/10/2025. CT surgery was consulted for CABG evaluation. Patient currently sitting in bed and denies chest discomfort or shortness of breath.
Pertinent negatives: Denies CVA/TIA, dysphagia, prior chest radiation/surgery, asthma/COPD, significant reflux, hepatitis, DVT/PE
Past Medical History
Past Medical History: GERD, HTN, Hypercholesterolemia and Other (PVD s/p RLE stents (2008) & attempted restenting 2 years ago; atrophic R kidney; bronchiectasis; colon polyp; anemia)
Past Surgical History
Past Surgical History: PCI/Stent (RLE (2008)) and Other
multiple surgeries for shapnel wounds to RLE, L thigh, LUE ([place]), colon polypectomy 09/2024 w/another cancerous polyp that requires resection (procedure not scheduled d/t 's recent illness/)
Family History
Mother: N/A
Father: N/A
Social History
Alcohol: Daily
Drug: None
Tobacco: Former Smoker (quit)
Personal: ( 2 weeks ago)
Living: Alone
Employment: Retired
Allergies
Allergy/AdvReac Type Severity Reaction Status Date / Time
hydrochlorothiazide Allergy Mild Nausea Verified 02/08/25 18:29
lisinopril Allergy Nausea Verified 02/08/25 18:29
Home Medications
�Medication �Instructions �Recorded �Confirmed �Type
acetaminophen 325 mg tablet 650 mg PO Q6HPRN PRN mild pain 02/08/25 02/08/25 History
(Tylenol)
aspirin 81 mg tablet,delayed 81 mg PO DAILY Blood Pressure 02/08/25 02/08/25 History
release
atorvastatin 80 mg tablet (Lipitor) 80 mg PO DAILY High Cholesterol 02/08/25 02/08/25 History
azithromycin 250 mg tablet 250 mg PO MOWEFR Infection 02/08/25 02/08/25 History
clopidogrel 75 mg tablet (Plavix) 75 mg PO DAILY Blood Clot 02/08/25 02/08/25 History
Prevention/Tx
diltiazem HCl 360 mg capsule,24 360 mg PO DAILY Heart 02/08/25 02/08/25 History
hr,extended release Disease/Condition
famotidine 10 mg tablet (Pepcid AC) 10 mg PO DAILY Gastrointestinal 02/08/25 02/08/25 History
Issue
loratadine 10 mg tablet 10 mg PO DAILY Allergies 02/08/25 02/08/25 History
losartan 100 mg tablet 100 mg PO DAILY Blood Pressure 02/08/25 02/08/25 History
metoprolol tartrate 25 mg tablet 12.5 mg PO BID Heart 02/08/25 02/08/25 History
Disease/Condition
Review of Systems
-
History Source: Patient
General: Reports Weight Gain
HEENT: Reports No Symptoms
Respiratory: Reports SOB, GE and PND
Cardiac: Reports Known Vascular Disease and Edema
Abdomen/GI: Reports No Symptoms
: Reports No Symptoms
Musculoskeletal: Reports No Symptoms
Skin: Reports No Symptoms
Neurological: Reports No Symptoms
Vascular: Reports Claudication (RLE) and PVD
Physical Exam
Vital Signs
Temp 97.9 F 02/10/25 11:18
Temp route: Oral 02/10/25 11:18
Pulse 61 02/10/25 13:15
Rhythm: Normal sinus rhythm 02/10/25 08:00
With- Sinus bradycardia 02/08/25 21:23
Resp Rate 17 02/10/25 11:18
Blood pressure 110/49 02/10/25 11:18
Blood pressure extremity used: Right upper arm 02/10/25 11:18
Position: Lying 02/10/25 11:18
MAP (cuff-Shamika Monitor) 67 02/10/25 11:18
SaO2 85 02/10/25 11:18
Nasal Cannula flow liters per minute 0 02/10/25 08:00
Oxygen Mode of Delivery Room air 02/10/25 11:18
Can the patient verbally communicate their pain? Yes 02/09/25 19:53
Pain scale rating: Pt states unable to rate 02/08/25 15:09
Actual Weight 87.2 kg 02/10/25 04:52
Body Mass Index (BMI) 26.1 02/10/25 04:52
Labs
02/10/25 05:00
02/10/25 05:00
APTT 96.6 Sec (23.4-35.0) H 02/10/25 09:11
Troponin I Cancelled 02/09/25 03:00
Iye-C-Wbphehqwpoo Pept 49085 pg/ml 02/08/25 15:30
Diagnostic Studies
TTE 02/08/25:
LVEF 30-35%. Global hypokinesis. Mild left ventricular hypertrophy. Mild to moderate mitral regurgitation. Moderate tricuspid regurgitation, pulmonary artery pressure 62 mmHg, severe pulmonary hypertension. Evidence of pleural effusion
[facility] (R letty Beverly) 02/10/25: report pending
Exam
General: Well Developed, Well Nourished and No Apparent Distress
HEENT: Normocephalic, Anicteric, Moist Mucous Membranes and PERRLA
Neck: Trachea Midline
Respiratory: Clear
Cardiac: S1/S2, Regular Rhythm and Murmur (II/ HSM LSB)
GI: Soft, Non Tender, Non Distended and Normal Bowel Sounds
Rectal: Deferred by Provider
Skin: Warm and Dry
Neuro: AO x 3, No Motor Deficits and Nonfocal/Grossly Intact
Extremities: Pulses (+1/4 DP B/L) and Other (Right radial TR band intact w/o bleeding/hematoma)
Lymph: No Lymphadenopathy
Psych: Calm
Assessment / Plan
-
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
- outpatient diltiazem DC'd
- last Plavix dose (for PVD) 02/10
- outpatient Lopressor transitioned to coreg for better BP control
- surgeon to review imaging and discuss surgical risk/benefit with patient
- pre-op diagnostics ordered
- STS Risk score to be calculated after pre-op testing completed
- on ferric gluconate for Fe+ deficiency anemia/known cancerous colon polyp
Data Reviewed
-
EKG: Report Reviewed by me and Discussed with Physician
Cutter Aluminum Sheet: Report Reviewed by me and Discussed with Physician
Echo: Report Reviewed by me and Discussed with Physician
Radiology: Report Reviewed by me and Discussed with Physician
Labs: Labs Reviewed by me and Discussed with Physician
--- NOTE | 2025-02-10 15:52 | PTCARENOTE ---
Patient received from the pharmacy laboratory technician. Right radial band intact 10 cc of air. Right brachial dressing CDI. PO 92%. AO x 3. NSR HR 67, BP 134/58, daughter at bedside
[2025-02-10] MEDS: FERRLECIT 110 MG IV (16:02)
--- NOTE | 2025-02-10 21:48 | W.PN.UPDATE ---
Update Note
Progress Note Update
Updated by RN that patient did have positive Hematest of his stool. Hgb 10.5/Hct 33.3 (02/08 Hct 11.5/Hct 38.0). Vital signs stable. AM labs ordered. Aspirin 81 mg PO on hold.
--- NOTE | 2025-02-10 22:15 | ITS.CL.CATH ---
Outreach Counselor - Catheterization
Cardiac Catheterization
Procedure Report:
LEFT AND RIGHT HEART CATHETERIZATION
Date of Procedure: February 10, 2025
Referring: Orion Oswald.
PROCEDURES:
1. Left heart catheterization, coronary angiogram.
2. Moderate sedation.
3. Right Heart catheterization.
INDICATION: NSTEMI and Cardiomyopathy
ACCESS: Right radial artery and right brachial vein, 6Fr. sheaths, under US guidance.
HEMODYNAMICS : (mmHg)
RA (m) : 9
RV (s/d,m) : 45/5, 12
PA (s/d, m) : 44/15, 25
PCWP (m) : 10
PA saturation: 54.9% on room air
AO saturation: 95.0% on room air
RA saturation: 55.3% on room air
Cardiac Output : 4.8 L/min
Cardiac Index : 2.29 L/min/m-2
Systemic vascular resistance: 1166 dsc^(-5)
Pulmonary vascular resistance: 3.33 cordova unit
AO (s/d) : 130/51
LVEDP : 22
No significant gradient across the aortic valve to suggest aortic stenosis.
CORONARY FINDINGS
Dominance: Right
Left Main Trunk (LMT): �Large caliber vessel that gives rise to the LAD and LCx branches. The left main has mild disease.�
Left Anterior Descending Artery (LAD): �Large caliber calcified vessel that gives off a large major diagonal as it courses along the anterior inter-ventricular groove before wrapping around the cardiac apex. The ostial LAD has a 80% calcified
stenosis.�
Left Circumflex Artery (LCx): �Large caliber vessel that gives off a large caliber arborizing first major obtuse marginal (OM) and a medium OM2 branches as it courses along the atrio-ventricular (AV) groove. �The OM1 has severe 80-90% stenosis in
the proximal segment and 50% stenosis in the mid-vessel
Right Coronary Artery (RCA): �Large caliber heavily calcified dominant vessel. The vessel has a mid-segment 90% calcified stenosis and then is chronically totally occluded.
SEDATION: 47 minutes of procedural sedation was utilized. IV Midazolam and IV Fentanyl were administered. An independent medical physicist was present to assist with and help manage the patient's level of consciousness and physiologic status.
Closure Device: There were no immediate intra-procedural complications. The sheath was pulled in the slab grinder and a vascular-band applied to the right wrist for radial artery hemostasis using the patent hemostasis technique.
CONCLUSIONS
1. Calcified coronary arteries with significant multivessel CAD.
2. Near normal to mildly elevated right and left sided filling pressures. Normal CO.
RECOMMENDATIONS
1. Wean radial band per protocol. Monitor right hand perfusion and for bleeding from the radial site following removal of the vascular-band following trans-radial access.
2. Continue aggressive medical therapy and risk factor modification for secondary CAD prevention.
3. Hydrate with normal saline to mitigate the risk of contrast-induced acute kidney injury.
4. CT surgery consult for possible CABG assessment.
Светлана Beverly MD, FACC, [facility]
copy: Orion Oswald.
--- NOTE | 2025-02-10 23:00 | PTCARENOTE ---
Pt rec'd at change of shift awake,alert no complaints voiced. Sinus on telemetry. O2 removed to check R/A sat result 86%, pt placed back on O2 at 2 lit n/c with sat's back up to high 90's. Passed large soft and formed dark brown-black stool heme
test positive. [place] ELECTROPHYSIOLOGY TECHNOLOGIST Rosa Morales made aware.
CXR pre CVOR workup completed. Right radial and Right Brachial site patent.
[2025-02-11] VITALS (23 sets, daily range): BP systolic 78–151; BP diastolic 42–88; BMI 25.1
--- NOTE | 2025-02-11 05:06 | PTCARENOTE ---
Pt's wt down 3kg, rechecked twice for accuracy. no complaints this am.
[2025-02-11 05:18] LABS: INR 1.11; PT 14.5 Sec (11.4-14.6)
[2025-02-11 05:43] LABS: ALT (SGPT) 15 U/L (0-50); AST (SGOT) 19 U/L (17-59); Albumin 3.3 g/dl (3.5-5.0); Alkaline Phosphatase 80 U/L (38-126); Blood Urea Nitrogen 30 mg/dl (9-20); Calcium 8.7 mg/dl (8.4-10.2); Chloride 99 mmol/L (98-107); Estimated Creatinine Clearance 52 ml/min; Glucose 85 mg/dl (70-99); Potassium 3.6 mmol/L (3.5-5.1); Sodium 136 mmol/L (135-145); Total Protein 5.7 g/dl (6.3-8.2); eGFR 56.58
[2025-02-11 05:51] LABS: Carbon Dioxide 33 mmol/L (22-30)
[2025-02-11 07:09] LABS: Hematocrit 30.8 % (39.0-52.0); Hemoglobin 9.5 g/dL (13.0-18.0); Mean Corp Hgb Conc. 30.8 g/dL (33.0-37.0); Mean Corpuscular Volume 77.6 fL (80.0-94.0); Platelet Count 204 10^3/uL (130-400); Red Cell Dist. Width 16.9 % (11.5-14.5)
[2025-02-11 09:22] LABS: Glycohemoglobin (HgbA1c) 5.6 % (4.0-5.9)
[2025-02-11] MEDS: PEPCID 10 MG PO (09:22)
[2025-02-11] MEDS: LIPITOR 80 MG PO (09:24)
[2025-02-11] MEDS: COZAAR 100 MG PO (09:24)
[2025-02-11] MEDS: CLARITIN 10 MG PO (09:24)
[2025-02-11] MEDS: COREG 12.5 MG PO ×2 (09:25→19:45)
[2025-02-11] MEDS: LASIX 40 MG IV (09:25)
--- NOTE | 2025-02-11 09:31 | W.PN.CARDCBS ---
Addendum entered and electronically signed by Dar Miller DO 02/11/25 10:01:
I saw and examined the patient.
The Label Paster's note was reviewed and I agree with the note.
Comment:
Resting comfortably, no complaints at this time
Mild reduction in hemoglobin, receiving iron and noted heme positive stool. No other reported overt bleeding. Aspirin on hold by primary service, will resume in the setting of multivessel CAD and pending CABG/CABG eval
Plavix on hold; will hold ARB for now as well
Appreciate input by CT surgical service regarding timing
Monitor on telemetry
Monitor hemoglobin hematocrit
Original Note:
Today's Communication / Plan
-
CT surgery consult
monitor Hgb
restart ASA
stop Losartan
Impression / Plan
-
.
Primary Clip On Sunglasses Inspector: Dr. Funk with [facility] in [place], [place]
Impression:
Presentation with SOB, LE edema
Acute on subacute heart failure with reduced LV function
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
Abnormal EKG with lateral ST-T wave changes
Elevated troponin peak 0.1
Mild to moderate mitral regurgitation
Moderate tricuspid regurgitation with severe pulmonary hypertension, PASP 62 mmHg
Microcytic anemia
history PVD with prior LE stents
Bronchiectasis
GERD
Past smoker quit 25 years ago
Daily alcohol, 2 drinks a day
ECHO 02/08/2025: Top normal left ventricular chamber size with moderately reduced left ventricular systolic function with ejection fraction 30 to 35%. Global hypokinesis. Mild left ventricular hypertrophy. Mild to moderate mitral
regurgitation.Moderate tricuspid regurgitation pulmonary artery pressure 62 mmHg, severe pulmonary hypertension.
Right/left heart cath 02/10/2025:
RA 9, PA 44/15, PCWP 10, CO/CI 4.8/2.29, LVEDP 22
LAD 80% ostial stenosis
Left circumflex with OM1 severe 80 to 90% proximal stenosis, 50% mid stenosis
RCA mid 90% stenosis then chronically totally occluded
Plan:
-Patient presents to [facility] 02/08/25 due to worsening SOB, LE edema over the past 10 days. Found to have evidence of acute CHF with proBNP [id number]. He has also had chest discomfort at times with exertion.
Likely progressive heart failure with significant volume overload, urgent echo 02/08/25 with EF 30 to 35% with mild-mod MR and mod TR with severe pulmonary hypertension pulmonary artery pressure 62 mmHg
Diuresing with Lasix to 40 mg IV twice daily
-Weight down 21 pounds since admission 02/08 to current weight of 185 pounds
-Creatinine stable 1.2-1.3
-Symptomatically feels improved with resolution of lower extremity edema and improvement in shortness of breath. Not requiring oxygen.
-Monitor daily weights, I's and O's and creatinine.
-Had left heart cath 02/10/2025 revealing multivessel CAD, CT surgery has been consulted for possible CABG
- Plavix on hold (had been on for history of PAD)
-stop ARB for now in anticipation of possible CT surgery
- Had heme positive stool 02/10 and hemoglobin downtrending to 9.5, down from 10.2, 11.5 - ASA placed on hold overnight 02/10, but will resume given h/o CAD
- h/o microcytic anemia
Cont beta-jenifer, transitioned to Coreg 12.5 mg twice daily and likely continue to titrate.
stopping outpt losartan 100 mg daily in anticipation of poss CT surgery
Cardizem stopped given HF (was on SUPERVISOR MOLD YARD for HTN)
Eventual Aldactone and consider SGLT2 inhibitor
-if necessary for HTN, could add hydralazine
The patient had prior stress testing earlier this year prior to his lower extremity procedure. He states he has had multiple procedures on his legs.
Previously discussed with daughter Elizabeth Alvarez via telephone, cell number [phone]
HPI: Patient is a 79-year-old male with past medical history of PVD, bronchiectasis, GERD who presented to [facility] ER due to worsening bilateral lower extremity edema, shortness of breath, chest tightness over the past 10 days. His
January 23 he states this was a stressor for him. Over the past 10 days he has noticed he has woken up typically in the morning with some chest discomfort and shortness of breath, typically pain will dissipate by around 10 AM. He also has had
worsening lower extremity edema which he states is unusual for him. He woke up this morning at 3 AM with the chest discomfort and shortness of breath and symptoms were more severe and persisted, prompting ER evaluation. Typically he resides in
[facility] and is visiting for the . He has been seen by special effects designer in [place], and daughter is working on pulling up records. On arrival to the emergency room, proBNP elevated on arrival at 12,000. EKG with evidence of
lateral T wave abnormality with no prior to compare and troponin of 0.1. Cardiology consulted for evaluation. No present chest pain. Patient is chronically on aspirin and Plavix due to history of lower extremity stents. He denies any history of
coronary stenting, heart failure, cardiomyopathy, or valvular heart disease. He reports it was 'implied' that he had arrhythmia, but no clear history.
Progress Note - Clip On Sunglasses Inspector
Subjective
Date of Service: February 11, 2025
feels well, no CP, SOB,
LE edema resolved
Objective
Labs:
02/11/25 06:56
02/11/25 04:54
Labs
Hgb 9.5 g/dL (13.0-18.0) L 02/11/25 06:56
Hct 30.8 % (39.0-52.0) L 02/11/25 06:56
Plt Count 204 10^3/uL (130-400) 02/11/25 06:56
PT 14.5 Sec (11.4-14.6) 02/11/25 04:54
INR 1.11 02/11/25 04:54
APTT Cancelled 02/10/25 17:26
Sodium 136 mmol/L (135-145) 02/11/25 04:54
Potassium 3.6 mmol/L (3.5-5.1) 02/11/25 04:54
BUN 30 mg/dl (9-20) H 02/11/25 04:54
Creatinine 1.3 mg/dL (0.7-1.3) 02/11/25 04:54
Glucose 85 mg/dl (70-99) 02/11/25 04:54
Troponins
02/08/25 02/09/25 02/09/25
15:30 00:02 03:00
Troponin I 0.107 H* 0.100 H* Cancelled
Vital Signs and I&O:
Vital Signs
Temp Pulse Resp BP Pulse Ox
98.7 F 85 18 123/61 98
02/11/25 07:02 02/11/25 09:00 02/11/25 07:02 02/11/25 06:59 02/11/25 07:02
Vital Signs
Temp Pulse Resp BP Pulse Ox
98.7 F 85 18 123/61 98
02/11/25 07:02 02/11/25 09:00 02/11/25 07:02 02/11/25 06:59 02/11/25 07:02
Intake & Output
02/09/25 02/10/25 02/11/25 02/12/25
06:59 06:59 06:59 06:59
Intake Total 340 / 340 1230 / 1230 0 / 0
Output Total 1600 / 1600 4450 / 4450 2925 / 2925
Balance -1260 / -1260 -3220 / -3220 -2925 / -2925
Physical Exam
Physical Exam
GEN: No distress, awake, Ox3
HEENT: supple, anicteric, mmm
LUNGS: CTA, no wheezes/rales
CV: Reg, S1/S2, no murmur
ABD: soft, BS+, NT/ND
EXT: No edema
NEURO: Gross non-focal
SKIN: No rash
[2025-02-11] MEDS: ASPIR LOW (ENTERIC COATED) 81 MG PO (10:54)
--- NOTE | 2025-02-11 12:37 | W.PN.HOSP.TC ---
Today's Communication/Plan
-
GI consult
Follow H&H
Continue IV iron
Decrease Lasix to once a day
Continue with aspirin and beta-jenifer
Tentative plan for CABG noted
Assessment / Plan
Assessment / Plan
Acute Heart Failure with Reduced EF
-Echo Jan 2025: Top normal left ventricular chamber size with moderately reduced left ventricular systolic function with ejection fraction 30 to 35%. Global hypokinesis. Mild left ventricular hypertrophy. Mild to moderate mitral regurgitation.
-Patient lost 29 pounds. Creatinine 1.3
-Cardiac cath showed near normal to mildly elevated right and left sided filling pressures. Normal CO
- Continue with IV diuresis-decrease to once a day
-Monitor Daily Weights. Monitor creatinine.
Elevated Troponin, clinical concern for ischemia with inverted T waves in lateral leads
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
- Patient referred to cardiothoracic surgeon-plan for CABG noted
-Off of heparin drip
-He was on aspirin and Plavix at home. Holding Plavix 3 surgery
Iron-Deficiency Anemia
Heme positive stools
Concern of slow GI bleed
-Patient reports he did have a colonoscopy earlier this year and had a precancerous polyp removed. He was scheduled for repeat colonoscopy in December which he cancelled due to his 's illness
- Started IV iron as patient has concurrent heart failure
- Follow HH
- Consult GI for endoscopic eval needed prior to CABG
Unspecified Arrhythmia
In sinus rhythm
-On metoprolol and diltiazem
- Cardizem discontinued
Essential Hypertension
-Continue metoprolol
-Off of losartan in anticipation of CABG
Hyperlipidemia
-Continue atorvastatin
Bronchiectasis -no flare
-Continue azithromycin
GERD
-Continue Pepcid
DVT proph: Subcu heparin
Code Status: Full Code
Discussed with RN
Discussed with cardiology
Anticipated Discharge: > 48 hours
Subjective/Interval History
-
Date of Service: February 11, 2025
Patient without shortness of breath or chest pain. He feels much improved with the leg swelling. He lost 20 pounds.
Denies any lightheadedness.
Objective Data
-
Labs:
Laboratory Results
02/11/25 02/11/25
04:54 06:56
WBC 4.7 L
Hgb 9.5 L
Hct 30.8 L
Plt Count 204
PT 14.5
INR 1.11
Sodium 136
Potassium 3.6
Chloride 99
Carbon Dioxide 33 H
BUN 30 H
Creatinine 1.3
Glucose 85
Calcium 8.7
Total Bilirubin 0.5
AST 19
ALT 15
Alkaline Phosphatase 80
Vital Signs:
Vital Signs
Temp Pulse Resp BP Pulse Ox
98.6 F 75 18 110/53 95
02/11/25 11:58 02/11/25 12:15 02/11/25 11:58 02/11/25 12:00 02/11/25 12:20
I&O
02/10/25 02/11/25 02/12/25
06:59 06:59 06:59
Intake Total 1230 / 1230 0 / 0
Output Total 4450 / 4450 2925 / 2925 300 / 300
Balance -3220 / -3220 -2925 / -2925 -300 / -300
Physical Exam
-
General: Comfortable
Respiratory: Clear to Auscultation and Non Labored Respirations; Negative Accessory Resp Muscle Use
Cardiac: Regular Rhythm; Negative S1/S2
GI: Soft and Nontender
Neuro: AO x 3
Psych: Calm
Data Reviewed
-
Labs: Labs Reviewed by me
--- NOTE | 2025-02-11 13:18 | CON.GI ---
Consultation
-
Date/Time Consultation Requested: 02/11/25 11:30am
Date/Time Consultation Performed: 02/11 25 1:18pm
Requesting Provider: Antonio Garcia
Performing Provider: Vladislav Gregory
Reason for Consultation: Heme positive anemia, black stool
Medical History
Chief Complaint / HPI
Chief Complaint: Heme positive anemia, black stool
History of Present Illness:
79yo male admitted with SOB, CP, LE edema. Cath shows multivessel CAD and Echo shows cardiomyopathy EF 30-35%. CT Surgery evaluating pt for OR. Pt noted to be anemic. Hgb 11.5 on admission down to 10.2, then 9.5 today. Last night he passes
large black tarry stool. Had recent colonoscopy in [place] which found an advanced polyp in August. He was sent to [facility] where repeat colonoscopy removed residual polyp in September. Was due for surveillance colonoscopy this December, but postponed due to
passing of his . Denies NSAIDs. Denies UGI complaints, gerd, dysphagia, early satiety, abd pain. No prior EGD
Past Medical History
Past Medical History: Arrhythmias, CAD, GERD, HTN, Hypercholesterolemia and Other (PAD s/p RLE stents, bronchiectasis)
Past Surgical History: Other (RLE stents)
Social History
Tobacco: Former Smoker
Alcohol: Daily
Family History
Family History: Reviewed & Not Pertinent
Allergies / Home Medications
Allergy/AdvReac Type Severity Reaction Status Date / Time
hydrochlorothiazide Allergy Mild Nausea Verified 02/08/25 18:29
lisinopril Allergy Nausea Verified 02/08/25 18:29
�Medication �Instructions �Recorded
acetaminophen 325 mg tablet 650 mg PO Q6HPRN PRN mild pain 02/08/25
(Tylenol)
aspirin 81 mg tablet,delayed 81 mg PO DAILY Blood Pressure 02/08/25
release
atorvastatin 80 mg tablet (Lipitor) 80 mg PO DAILY High Cholesterol 02/08/25
azithromycin 250 mg tablet 250 mg PO MOWEFR Infection 02/08/25
clopidogrel 75 mg tablet (Plavix) 75 mg PO DAILY Blood Clot 02/08/25
Prevention/Tx
diltiazem HCl 360 mg capsule,24 360 mg PO DAILY Heart 02/08/25
hr,extended release Disease/Condition
famotidine 10 mg tablet (Pepcid AC) 10 mg PO DAILY Gastrointestinal 02/08/25
Issue
loratadine 10 mg tablet 10 mg PO DAILY Allergies 02/08/25
losartan 100 mg tablet 100 mg PO DAILY Blood Pressure 02/08/25
metoprolol tartrate 25 mg tablet 12.5 mg PO BID Heart 02/08/25
Disease/Condition
Review of Systems
-
All other systems: A 12 pt ROS was Negative except as stated above in HPI
Vital Signs
Temp Pulse Resp BP Pulse Ox
98.6 F 75 18 110/53 95
02/11/25 11:58 02/11/25 12:15 02/11/25 11:58 02/11/25 12:00 02/11/25 12:20
Physical Exam
Exam
General: No Apparent Distress
HEENT: Normocephalic and Atraumatic
Respiratory: Non Labored Respirations
GI: Soft, Non Tender and Non Distended
Musculoskeletal: Edema
Results
WBC 4.7 10^3/uL (4.8-10.8) L 02/11/25 06:56
Hgb 9.5 g/dL (13.0-18.0) L 02/11/25 06:56
Hct 30.8 % (39.0-52.0) L 02/11/25 06:56
MCV 77.6 fL (80.0-94.0) L 02/11/25 06:56
Plt Count 204 10^3/uL (130-400) 02/11/25 06:56
Absolute Neuts (auto) 4.2 10^3/uL (1.4-6.5) 02/08/25 15:30
PT 14.5 Sec (11.4-14.6) 02/11/25 04:54
INR 1.11 02/11/25 04:54
APTT Cancelled 02/10/25 17:26
Sodium 136 mmol/L (135-145) 02/11/25 04:54
Potassium 3.6 mmol/L (3.5-5.1) 02/11/25 04:54
Chloride 99 mmol/L (98-107) 02/11/25 04:54
Carbon Dioxide 33 mmol/L (22-30) H 02/11/25 04:54
BUN 30 mg/dl (9-20) H 02/11/25 04:54
Creatinine 1.3 mg/dL (0.7-1.3) 02/11/25 04:54
Calcium 8.7 mg/dl (8.4-10.2) 02/11/25 04:54
Total Bilirubin 0.5 mg/dl (0.2-1.3) 02/11/25 04:54
AST 19 U/L (17-59) 02/11/25 04:54
ALT 15 U/L (0-50) 02/11/25 04:54
Alkaline Phosphatase 80 U/L (38-126) 02/11/25 04:54
Diagnostic Image Results:
Prior GI Procedures:
EGD:
Colonoscopy:
Assessment / Plan
-
Summary: 79yo male presents with CP/SOB. Cath shows multivessel CAD. Echo shows cardiomyopathy. CT Surgery evaluating for CABG. Pt passed large black tarry stool. Hgb on adm 11.5--10.2--9.5. Had recent colonoscopy in [place] for heme positive stool.
Found large advanced polyp, which was removed in August but incomplete. Referred to [facility] in September to remove residual polyp. Was supposed to repeat in December for surveillance but was ill and this month. Denies upper GI c/o, no
prior EGD, no NSAIDs. Currently on ASA. Plavix held, last dose 11/28.
Impression:
Melena/black stool, heme positive
Acute blood loss anemia
CAD on ASA/plavix
CMP
Recommendations:
Given his black stool heme positive, drop in Hgb in setting of planning CABG and need for anticoagulation, will plan EGD tomorrow to r/o UGIB
IV Protonix 40mg daily
NPO p MN
F/U in [place] for colon polyp surveillance
-
-
Thank you for consultation and allowing me to participate in the patient's care. Please call the controls operator molded goods GI physician during the after hours with any questions or concerns.
[2025-02-11] MEDS: FERRLECIT 110 MG IV (14:33)
[2025-02-11] MEDS: NSS (PRESERVATIVE FREE) 10 ML IV (14:56)
[2025-02-11] MEDS: PROTONIX IV 40 MG IV (14:56)
[2025-02-11] MEDS: NITROSTAT (SUBLINGUAL) 0.4 MG SL ×2 (17:49→18:00)
[2025-02-11] MEDS: NITROGLYCERIN PREMIX 250 IV (18:03)
--- NOTE | 2025-02-11 19:19 | PTCARENOTE ---
Pt denied any discomfort throughout the day until 17:50 when he reported 6/10 right chest 'heartburn going into his right arm'. Pt stated this was new and he felt slightly sob. BP 147/88, 97% on room air. notified, pt had a stat ECG which
he reviewed. Pt received a total of 2 SL nitroglycerin which 'almost completely ' took the discomfort away. Pt started on IV nitroglycerin, now up to 15mcg. Pt somewhat vague at times as to whether the discomfort is entirely gone.Telemetry shows
sinus rhythm. Pt seen by Dr. Gregory, no further BM's today, plan for endoscopy on 02/12.
[2025-02-12] VITALS (28 sets, daily range): BP systolic 105–142; BP diastolic 49–89; BMI 25.0
--- NOTE | 2025-02-12 00:35 | PTCARENOTE ---
Assumed care of patient at change of shift. Tele remains SR w/ occasional PVCs. At approx 19:15 pt c/o left sided chest discomfort. Rating it 1-. Described as an 'ache'. Adjusted nitro gtt--see worklist. Patient w/ good relief.
At approx 20:40, pts daughter Elizabeth rang the call conner. Upon assessment patient sitting on the toilet. Pt reports he had just finished brushing his teeth and was attempting to put on a new gown. He had developed lightheadedness/dizziness. Obtained
BP while pt sitting on the toilet, bp 78/52. This RN and another RN assisted patient back to bed. BP rechecked while lying flat, and bp result 93/73. Patient reports the dizziness had subsided. Instructed pt to remain bedrest till further notice.
Urinal provided at bedside. Patient c/o when he turns his head from side to side he see's 'double vision'. This symptom has resolved spontaneously. Eliseo Ritchie PRODUCTION SAMPLER aware, no new orders obtained. Reviewed POC w/ patient, hes aware to maintain NPO
status. Call conner within reach.
[2025-02-12 04:52] LABS: Hematocrit 27.4 % (39.0-52.0); Hemoglobin 8.6 g/dL (13.0-18.0); Mean Corp Hgb Conc. 31.4 g/dL (33.0-37.0); Mean Corpuscular Volume 77.8 fL (80.0-94.0); Platelet Count 197 10^3/uL (130-400); Red Cell Dist. Width 17.1 % (11.5-14.5)
[2025-02-12] MEDS: ASPIR LOW (ENTERIC COATED) 81 MG PO (07:50)
[2025-02-12] MEDS: PEPCID 10 MG PO (07:50)
[2025-02-12] MEDS: PROTONIX IV 40 MG IV (07:51)
[2025-02-12] MEDS: COREG 12.5 MG PO ×2 (07:51→19:48)
[2025-02-12] MEDS: NSS (PRESERVATIVE FREE) 10 ML IV (07:52)
--- NOTE | 2025-02-12 08:05 | W.PN.CARDCBS ---
Today's Communication / Plan
-
N.p.o. for EGD today per GI, patient high risk
Continue aspirin, nitroglycerin
Appreciate input by CT surgery regarding timing
Impression / Plan
-
.
Primary Continuous Linter Drier Operator: Dr. Funk with [facility] in [place], [place]
Impression:
Presentation with SOB, LE edema
Acute on subacute heart failure with reduced LV function
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
Abnormal EKG with lateral ST-T wave changes
Elevated troponin peak 0.1
Mild to moderate mitral regurgitation
Moderate tricuspid regurgitation with severe pulmonary hypertension, PASP 62 mmHg
Microcytic anemia
history PVD with prior LE stents
Bronchiectasis
GERD
Past smoker quit 25 years ago
Daily alcohol, 2 drinks a day
ECHO 02/08/2025: Top normal left ventricular chamber size with moderately reduced left ventricular systolic function with ejection fraction 30 to 35%. Global hypokinesis. Mild left ventricular hypertrophy. Mild to moderate mitral
regurgitation.Moderate tricuspid regurgitation pulmonary artery pressure 62 mmHg, severe pulmonary hypertension.
Right/left heart cath 02/10/2025:
RA 9, PA 44/15, PCWP 10, CO/CI 4.8/2.29, LVEDP 22
LAD 80% ostial stenosis
Left circumflex with OM1 severe 80 to 90% proximal stenosis, 50% mid stenosis
RCA mid 90% stenosis then chronically totally occluded
Plan:
-Patient presents to [facility] 02/08/25 due to worsening SOB, LE edema over the past 10 days. Found to have evidence of acute CHF with proBNP [id number]. He has also had chest discomfort at times with exertion.
Likely progressive heart failure with significant volume overload, urgent echo 02/08/25 with EF 30 to 35% with mild-mod MR and mod TR with severe pulmonary hypertension pulmonary artery pressure 62 mmHg
Diuresing with Lasix to 40 mg IV twice daily
-Weight down 21 pounds since admission 02/08 to current weight of 185 pounds
-Creatinine stable 1.2-1.3
-Symptomatically feels improved with resolution of lower extremity edema and improvement in shortness of breath. Not requiring oxygen.
-Monitor daily weights, I's and O's and creatinine.
- Had left heart cath 02/10/2025 revealing multivessel CAD, CT surgery has been consulted for possible CABG, timing TBD per CT surgery
- Plavix on hold (had been on for history of PAD), remains on aspirin
- stop ARB for now in anticipation of possible CT surgery
- Had heme positive stool 02/10 and hemoglobin downtrending; GI consulted plan for EGD 02/12/2025; given patient's clinical presentation and history, he remains at high risk however concern for bleeding needs to be evaluated given patient's need for
antiplatelet and anticoagulation
- h/o microcytic anemia
� Noted chest discomfort 02/11/2025 resolved with nitroglycerin. Patient on nitroglycerin drip without chest discomfort
Cont beta-jenifer, transitioned to Coreg 12.5 mg twice daily and likely continue to titrate.
Eventual Aldactone and consider SGLT2 inhibitor
-if necessary for HTN, could add hydralazine
The patient had prior stress testing earlier this year prior to his lower extremity procedure. He states he has had multiple procedures on his legs.
Discussed with patient, nursing
HPI: Patient is a 79-year-old male with past medical history of PVD, bronchiectasis, GERD who presented to [facility] ER due to worsening bilateral lower extremity edema, shortness of breath, chest tightness over the past 10 days. His
January 23 he states this was a stressor for him. Over the past 10 days he has noticed he has woken up typically in the morning with some chest discomfort and shortness of breath, typically pain will dissipate by around 10 AM. He also has had
worsening lower extremity edema which he states is unusual for him. He woke up this morning at 3 AM with the chest discomfort and shortness of breath and symptoms were more severe and persisted, prompting ER evaluation. Typically he resides in
[facility] and is visiting for the . He has been seen by roll forming machine set up mechanic in [place], and daughter is working on pulling up records. On arrival to the emergency room, proBNP elevated on arrival at 12,000. EKG with evidence of
lateral T wave abnormality with no prior to compare and troponin of 0.1. Cardiology consulted for evaluation. No present chest pain. Patient is chronically on aspirin and Plavix due to history of lower extremity stents. He denies any history of
coronary stenting, heart failure, cardiomyopathy, or valvular heart disease. He reports it was 'implied' that he had arrhythmia, but no clear history.
Progress Note - Continuous Linter Drier Operator
Subjective
Date of Service: February 12, 2025
Patient seen and examined. Patient with episodes of chest discomfort, right sided, burning sensation occurring yesterday and overnight. Resolution with nitroglycerin. No further episodes since initiation of nitroglycerin drip. Patient resting
comfortably in bed currently denies any chest pain, shortness of breath, palpitations, weakness. Patient is n.p.o. tentatively for EGD today.
Objective
Labs:
02/12/25 04:25
02/11/25 04:54
Labs
Hgb 8.6 g/dL (13.0-18.0) L 02/12/25 04:25
Hct 27.4 % (39.0-52.0) L 02/12/25 04:25
Plt Count 197 10^3/uL (130-400) 02/12/25 04:25
PT 14.5 Sec (11.4-14.6) 02/11/25 04:54
INR 1.11 02/11/25 04:54
APTT Cancelled 02/10/25 17:26
Sodium 136 mmol/L (135-145) 02/11/25 04:54
Potassium 3.6 mmol/L (3.5-5.1) 02/11/25 04:54
BUN 30 mg/dl (9-20) H 02/11/25 04:54
Creatinine 1.3 mg/dL (0.7-1.3) 02/11/25 04:54
Glucose 85 mg/dl (70-99) 02/11/25 04:54
Vital Signs and I&O:
Vital Signs
Temp Pulse Resp BP Pulse Ox
97.7 F 77 16 131/66 93
02/12/25 06:56 02/12/25 07:51 02/12/25 06:56 02/12/25 07:51 02/12/25 06:56
Vital Signs
Temp Pulse Resp BP Pulse Ox
97.7 F 77 16 131/66 93
02/12/25 06:56 02/12/25 07:51 02/12/25 06:56 02/12/25 07:51 02/12/25 06:56
Intake & Output
02/10/25 02/11/25 02/12/25 02/13/25
06:59 06:59 06:59 06:59
Intake Total 1230 / 1230 0 / 0
Output Total 4450 / 4450 2925 / 2925 500 / 500
Balance -3220 / -3220 -2925 / -2925 -500 / -500
Physical Exam
Physical Exam
GENERAL: no acute distress
EYE: sclera anicteric
NECK: Supple, no JVD, no carotid bruit appreciated
ENT: normal nose, moist mucosal membranes
CARDIAC: Regular rate and rhythm, +S1/S2, no murmur, rubs, or gallops
CHEST/PULMONARY: Normal effort, clear breath sounds
ABDOMEN: Soft, without focal tenderness or distention
NEUROLOGICAL: Alert and oriented x3
SKIN: Warm and dry, no rash
PSYCH: Normal and appropriate interaction.
Telemetry shows sinus rhythm
[2025-02-12] MEDS: KCL 40 MEQ PO (11:17)
[2025-02-12 11:54] LABS: Blood Urea Nitrogen 27 mg/dl (9-20); Calcium 9.0 mg/dl (8.4-10.2); Carbon Dioxide 32 mmol/L (22-30); Chloride 102 mmol/L (98-107); Estimated Creatinine Clearance 57 ml/min; Glucose 94 mg/dl (70-99); Magnesium 1.8 mg/dl (1.6-2.3); Potassium 3.6 mmol/L (3.5-5.1); Sodium 137 mmol/L (135-145); eGFR > 60.00
--- NOTE | 2025-02-12 14:07 | W.PN.UPDATE ---
Addendum entered and electronically signed by Vladislav Gregory MD 02/16/25 07:08:
The ulcers are acute ulcers
Original Note:
Update Note
Progress Note Update
EGD done
Multiple Sadia in the gastric fundus, largest was cratered 10mm with visible vessel. Injected 8cc dilute epi and cauterized with bipolar probe
Bx taken from body/antrum r/o H pylori
REC:
NPO
Hgb q8
Protonix gtt
OK to keep on ASA
--- NOTE | 2025-02-12 14:26 | W.PN.HOSP.TC ---
Today's Communication/Plan
-
Continue with PPI. Follow H&H. Transfuse 1 unit of PRBC
Continue with aspirin. Continue beta-jenifer
Ongoing plans for CABG next week
Assessment / Plan
Assessment / Plan
Acute Heart Failure with Reduced EF
-Echo Jan 2025: Top normal left ventricular chamber size with moderately reduced left ventricular systolic function with ejection fraction 30 to 35%. Global hypokinesis. Mild left ventricular hypertrophy. Mild to moderate mitral regurgitation.
-Patient lost 29 pounds. Creatinine 1.2
-Cardiac cath showed near normal to mildly elevated right and left sided filling pressures. Normal CO
- Continue with IV diuresis-decreased to once a day
-Monitor Daily Weights. Monitor creatinine.
Elevated Troponin, clinical concern for ischemia with inverted T waves in lateral leads
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
- Patient referred to cardiothoracic surgeon-plan for CABG noted
-Off of heparin drip
-He was on aspirin and Plavix at home. Holding Plavix 3 surgery. On aspirin.
Chest pains concerning for angina. Currently on IV nitroglycerin drip
Iron-Deficiency Anemia
Heme positive stools
Gastric ulcers
-Patient reports he did have a colonoscopy earlier this year and had a precancerous polyp removed. He was scheduled for repeat colonoscopy in December which he cancelled due to his 's illness
- Started IV iron as patient has concurrent heart failure
- Status post endoscopy today which showed nonobstructing nonbleeding gastric ulcer with a visible vessel which was injected.
- Patient currently n.p.o. and on IV PPI drip
Severe anemia suspected secondary to acute blood loss
Slow drop in H&H noted-hemoglobin 8.6 and patient currently having angina and has a multivessel CAD. Will transfuse 1 unit of PRBC today.
Unspecified Arrhythmia
In sinus rhythm
-On metoprolol and diltiazem
- Cardizem discontinued
Essential Hypertension
-Continue metoprolol
-Off of losartan in anticipation of CABG
Hyperlipidemia
-Continue atorvastatin
Bronchiectasis -no flare
-Continue azithromycin
GERD
-Continue Pepcid
DVT proph: Subcu heparin
Code Status: Full Code
Discussed with RN
Discussed with cardiology, GI
Anticipated Discharge: > 48 hours
Subjective/Interval History
-
Date of Service: February 12, 2025
Had episode of chest pain yesterday which improved with nitro sublingual. Currently on IV nitroglycerin drip.
Status post EGD today which showed gastric ulcers.
Denies any chest pain or shortness of breath currently.
Objective Data
-
Labs:
Laboratory Results
02/12/25 02/12/25 02/12/25
04:25 11:26 14:15
WBC 4.8
Hgb 8.6 L Pending
Hct 27.4 L Pending
Plt Count 197
Sodium 137
Potassium 3.6
Chloride 102
Carbon Dioxide 32 H
BUN 27 H
Creatinine 1.2
Glucose 94
Calcium 9.0
02/12/25
22:15
WBC
Hgb Pending
Hct Pending
Plt Count
Sodium
Potassium
Chloride
Carbon Dioxide
BUN
Creatinine
Glucose
Calcium
Vital Signs:
Vital Signs
Temp Pulse Resp BP Pulse Ox
97.8 F 72 17 114/49 91
02/12/25 11:21 02/12/25 11:21 02/12/25 11:21 02/12/25 11:00 02/12/25 11:21
I&O
02/11/25 02/12/25 02/13/25
06:59 06:59 06:59
Intake Total 0 / 0
Output Total 2925 / 2925 500 / 500 150 / 150
Balance -2925 / -2925 -500 / -500 -132 / -132
Physical Exam
-
General: No Apparent Distress
HEENT: Moist Mucous Membranes
Respiratory: Non Labored Respirations; Negative Accessory Resp Muscle Use
Cardiac: Regular Rhythm and S1/S2; Negative Tachycardic
GI: Soft and Nontender
Neuro: AO x 3
Data Reviewed
-
Labs: Labs Reviewed by me
[2025-02-12] MEDS: PROTONIX 100 IV ×2 (14:52→23:27)
[2025-02-12 15:09] LABS: Hematocrit 28.6 % (39.0-52.0); Hemoglobin 8.8 g/dL (13.0-18.0)
[2025-02-12] MEDS: LIPITOR 80 MG PO (18:06)
[2025-02-12] MEDS: CLARITIN 10 MG PO (18:06)
[2025-02-12] MEDS: LASIX 40 MG IV (18:06)
[2025-02-12] MEDS: FERRLECIT 110 MG IV (18:06)
--- NOTE | 2025-02-12 19:19 | PTCARENOTE ---
No further dark BM's today, pt had EGD and remains NPO except for meds. Protonix infusion in progress. Pt transfused one unit of PRBC's without problem followed by IV lasix. Will recheck serial H/H's. Pt reported 3/10 chest discomfort/heartburn at
@18:30 which resolved with oxygen and increasing nitroglycerin infusion to 15mcg. Telemetry shows sinus rhythm with 7 beat run of VT @09:38, potassium repleted per . Will monitor pt closely.
[2025-02-12 22:45] LABS: Hematocrit 33.1 % (39.0-52.0); Hemoglobin 10.5 g/dL (13.0-18.0)
[2025-02-13] VITALS (12 sets, daily range): BP systolic 85–137; BP diastolic 53–76; BMI 24.5
--- NOTE | 2025-02-13 03:37 | PTCARENOTE ---
At approximately 0310 pt rang call conner. Pt complained of right sided chest discomfort that radiates across his chest, described as heart burn, rated 2 out of 10. During this time pt said this feels like 'my heart is racing'. Nitro drip titrated
from 15mcg to 20mcg. VSS. CT CHEMICAL ENGINEERING TECHNOLOGIST Loly Ritchie notified, no new orders at this time. Tele remains SR with occasional PVC's HR 70's-80's at rest. Pulse Ox remains 94% on 2L O2, maintained O2 for comfort. Pt. reports good relief with chest discomfort since
titrating up the nitro drip. Call conner within reach.
[2025-02-13] MEDS: NITROGLYCERIN PREMIX 250 IV (04:05)
[2025-02-13 06:15] LABS: Hematocrit 29.0 % (39.0-52.0); Hemoglobin 9.1 g/dL (13.0-18.0)
[2025-02-13 06:45] LABS: Blood Urea Nitrogen 23 mg/dl (9-20); Calcium 9.0 mg/dl (8.4-10.2); Carbon Dioxide 32 mmol/L (22-30); Chloride 101 mmol/L (98-107); Estimated Creatinine Clearance 57 ml/min; Glucose 87 mg/dl (70-99); Potassium 4.0 mmol/L (3.5-5.1); Sodium 138 mmol/L (135-145); eGFR > 60.00
--- NOTE | 2025-02-13 07:22 | W.PN.GI.CBS2 ---
Addendum entered and electronically signed by Cindy Ochoa MD 02/13/25 10:30:
I saw and examined the patient.
The SINGING TELEGRAM PERFORMER or PA's note was reviewed and I agree with the note.
Comment: 79yo male presents with CP, SOB, LE edema with cath shows multivessel CAD and echo shows cardiomyopathy, planning for CABG but found to have melena s/p EGD yesterday with with VV vs pigmented spot treated with epi and bicap.
Given high cardiac risk, ok GI POV for any meds/interventions needed for cardiac issues.
Continue PPI gtt x 72 hours (until Thu) then PPI BID.
Path pending for HP unclear why had .
Trend Hb/stools.
OK diet from GI POV.
Original Note:
Today's Communication / Plan
-
s/p EGD as noted with non obstructing bleeding gastric ulcer with visible vessel, injected and treated with bipolar cauterization
last stool 02/10 brown/black
cont PPI Gtt to completed 72 hours (started 02/12-- to run til 02/15)
NPO will review with cards if ok to advance -- ok for cardiac diet from GI standpoint
cont to trend hbg and stool records
reviewed wtih Dr. Ochoa ok to proceed with cardiac work up -- sent message to Dr. Castaneda to review
F/U in [place] for colon polyp surveillance
support given with recent of spouse
Assessment / Plan
-
Summary: 79yo male presents with CP/SOB. Cath shows multivessel CAD. Echo shows cardiomyopathy. CT Surgery evaluating for CABG. Pt passed large black tarry stool. Hgb on adm 11.5--10.2--9.5. Had recent colonoscopy in [place] for heme positive stool.
Found large advanced polyp, which was removed in August but incomplete. Referred to [facility] in September to remove residual polyp. Was supposed to repeat in December for surveillance but was ill and this month. Denies upper GI c/o, no
prior EGD, no NSAIDs. Currently on ASA. Plavix held, last dose 02/10.
Laboratory Tests
02/12/25 02/12/25 02/12/25
04: 14:57 22:35
Hgb 8.6 L 8.8 L 10.5 L
02/13/25
06:04
Hgb 9.1 L
02/12/25 EGD - Normal esophagus.
- Non-obstructing non-bleeding gastric ulcers with a visible
vessel. Injected. Treated with bipolar cautery.
- Normal examined duodenum.
- Biopsies were taken with a cold forceps for Helicobacter pylori
testing.
bx pending
Impression:
Melena/black stool, heme positive
Acute blood loss anemia
hx large advance polyp with incomplete resection in August with further removal in September at [facility]
CAD on ASA/plavix
CMP
recent of spouse
Recommendations:
s/p EGD as noted with non obstructing bleeding gastric ulcer with visible vessel, injected and treated with bipolar cauterization
last stool 02/10 brown/black
cont PPI Gtt to completed 72 hours (started 02/12-- to run til 02/15)
NPO will review with cards if ok to advance -- ok for cardiac diet from GI standpoint
cont to trend hbg and stool records
reviewed wtih Dr. Ochoa ok to proceed with cardiac work up -- sent message to Dr. Castaneda to review
F/U in [place] for colon polyp surveillance
support given with recent of spouse
Subjective
Subjective
Date of Service: February 13, 2025
02/10 brown/black stool, NPO, feeling better, denies any dizziness or shortness of breath with limited mobility in room. Reports some periods of indigestion but improved with nitro
Objective
Data Reviewed
Laboratory Data:
Laboratory Results
02/13/25 06:04
Laboratory Results
PT 14.5 Sec (11.4-14.6) 02/11/25 04:54
INR 1.11 02/11/25 04:54
APTT Cancelled 02/10/25 17:26
Magnesium 1.8 mg/dl (1.6-2.3) 02/12/25 11:26
Total Bilirubin 0.5 mg/dl (0.2-1.3) 02/11/25 04:54
AST 19 U/L (17-59) 02/11/25 04:54
ALT 15 U/L (0-50) 02/11/25 04:54
Alkaline Phosphatase 80 U/L (38-126) 02/11/25 04:54
Vital Signs and I&O:
Vital Signs
Temp Pulse Resp BP Pulse Ox
98.5 F 74 20 111/53 100
02/13/25 07:03 02/13/25 06:00 02/13/25 07:03 02/13/25 03:50 02/13/25 07:03
I&O
02/12/25 02/13/25 02/14/25
06:59 06:59 06:59
Intake Total 1258.4 / 1258.4
Output Total 500 / 500 2750 / 2750
Balance -500 / -500 -1491.6 / -1491.6
Physical Exam
Physical Exam
HEENT: Anicteric and Moist mucous membranes
Cardiology: Normal Sinus Rhythm
Pulmonary: Clear
GI: Soft and Non Distended
Neuro: Non Focal
[2025-02-13] MEDS: CLARITIN 10 MG PO (08:53)
[2025-02-13] MEDS: COREG 12.5 MG PO ×2 (08:54→22:21)
[2025-02-13] MEDS: ASPIR LOW (ENTERIC COATED) 81 MG PO (08:54)
[2025-02-13] MEDS: PEPCID 10 MG PO (08:54)
[2025-02-13] MEDS: LIPITOR 80 MG PO (08:54)
[2025-02-13] MEDS: PROTONIX 100 IV ×2 (09:00→21:50)
--- NOTE | 2025-02-13 09:41 | W.PN.CARDCBS ---
Addendum entered and electronically signed by Allie Castaneda DO 02/13/25 11:03:
I saw and examined the patient.
The Bowling Alley Refinisher's note was reviewed and I agree with the note.
Comment: Patient was seen and examined with cardiac PA. Daughter at bedside. Patient has had recurrent episodes of chest pain which radiates across to his lower chest relieved with increased nitroglycerin but currently chest pain-free. No
shortness of breath or dizziness.
GEN: No distress, awake, alert, oriented x3
HEENT: supple, anicteric, mmm
LUNGS: CTA b/l, no wheezes/rales
CV: Reg, S1/S2, no murmur
ABD: soft, BS+, NT/ND
EXT: trace edema
NEURO: Gross non-focal
Plan:
Acute heart failure with reduced ejection fraction, LV ejection fraction on echocardiogram February 09, 2020 2530-35% with severe pulmonary hypertension found to have multivessel coronary artery disease undergoing CABG evaluation
- Preoperative evaluation and optimization
- Tentative plan for CT surgery is CABG on Thursday following Plavix washout
- Continue aspirin, Coreg. Will hold off IV heparin at this time given heme positive stools
- Continue IV nitroglycerin drip
- Appreciate GI evaluation: Hgb overall stable. Heme + stool noted 02/10. EGD 02/12 w/ nonobstructing bleeding gastric ulcer with visible vessel, injected and treated with bipolar cauterization. Recommend PPI drip for total of 72 hours
-Diuresing with IV lasix; reduce Lasix to 20 mg daily. weight down to 180 lbs 02/13. Down 26 lbs this admission.
-Creat stable at 1.2. Continue to follow daily weights, I&Os.
- Eventual optimization of goal-directed medical therapy: Continue carvedilol. Losartan on hold in anticipation of surgery. Will consider Entresto prior to discharge after surgery. Consider addition of [id number] at time of discharge
- Will follow with you
Original Note:
Today's Communication / Plan
-
IV lasix 40mg daily, weight down significantly
Continue aspirin, coreg
Losartan, plavix held
Tentatively planned for CABG Thursday.
Impression / Plan
-
Primary Grove Superintendent: Dr. Funk with [employer] [facility] in [place], [place]
Impression:
Presented with SOB, LE edema
Acute HFrEF
Newly diagnosed cardiomyopathy EF 30 to 35%
Abnormal EKG with lateral ST-T wave changes
Elevated troponin peak 0.1
Mild to moderate mitral regurgitation
Moderate tricuspid regurgitation with severe pulmonary hypertension, PASP 62 mmHg
Microcytic anemia
h/o PVD with prior LE stents
Bronchiectasis
GERD
Past smoker quit 25 years ago
Daily alcohol, 2 drinks a day
Echo 02/08/2025: EF 30-35%, global hypokinesis, mild LVH, mild to moderate MR, moderate TR, estimated PAP 62 mmHg, severe pulmonary HTN
Right/left heart cath 02/10/2025: RA 9, PA 44/15, PCWP 10, CO/CI 4.8/2.29, LVEDP 22. LAD 80% ostial stenosis. Left circumflex with OM1 severe 80 to 90% proximal stenosis, 50% mid stenosis. RCA mid 90% stenosis then chronically totally occluded
Plan:
-Presented with worsening SOB, LE edema. Admitted with acute CHF. Also w/ chest discomfort at times w/ exertion.
-Diuresing with IV lasix 40mg daily. Weight down to 180 lbs 02/13. Down 26 lbs this admission.
-Creat stable at 1.2. Continue to follow daily weights, I&Os.
-Echo 02/08 with EF newly reduced at 30-35%.
-Underwent C 02/10 which revealed MV CAD. CT surgery following. Plan is for CABG, tentatively for Thursday, 02/15.
-Continues on aspirin 81mg daily. Plavix on hold.
-Hgb overall stable. Heme + stool noted 02/10. GI following. EGD 02/12 w/ nonobstructing bleeding gastric ulcer with visible vessel, injected and treated with bipolar cauterization.
-Plan is to continue PPI gtt for 72 hours.
-BP stable. Losartan on hold in anticipation of surgery. Continue coreg.
-Continues on nitro gtt for breakthrough chest pain.
HPI: Patient is a 79-year-old male with past medical history of PVD, bronchiectasis, GERD who presented to [facility] ER due to worsening bilateral lower extremity edema, shortness of breath, chest tightness over the past 10 days. His
January 23 he states this was a stressor for him. Over the past 10 days he has noticed he has woken up typically in the morning with some chest discomfort and shortness of breath, typically pain will dissipate by around 10 AM. He also has had
worsening lower extremity edema which he states is unusual for him. He woke up this morning at 3 AM with the chest discomfort and shortness of breath and symptoms were more severe and persisted, prompting ER evaluation. Typically he resides in
[facility] and is visiting for the . He has been seen by automotive technology instructor in [place], and daughter is working on pulling up records. On arrival to the emergency room, proBNP elevated on arrival at 12,000. EKG with evidence of
lateral T wave abnormality with no prior to compare and troponin of 0.1. Cardiology consulted for evaluation. No present chest pain. Patient is chronically on aspirin and Plavix due to history of lower extremity stents. He denies any history of
coronary stenting, heart failure, cardiomyopathy, or valvular heart disease. He reports it was 'implied' that he had arrhythmia, but no clear history.
Progress Note - Grove Superintendent
Subjective
Date of Service: February 13, 2025
Noted some heartburn/chest discomfort while down for carotid US. Improved w/ IV nitro.
Objective
Labs:
02/13/25 06:04
Labs
Hgb 9.1 g/dL (13.0-18.0) L 02/13/25 06:04
Hct 29.0 % (39.0-52.0) L 02/13/25 06:04
Plt Count 197 10^3/uL (130-400) 02/12/25 04:25
PT 14.5 Sec (11.4-14.6) 02/11/25 04:54
INR 1.11 02/11/25 04:54
APTT Cancelled 02/10/25 17:26
Sodium 138 mmol/L (135-145) 02/13/25 06:04
Potassium 4.0 mmol/L (3.5-5.1) 02/13/25 06:04
BUN 23 mg/dl (9-20) H 02/13/25 06:04
Creatinine 1.2 mg/dL (0.7-1.3) 02/13/25 06:04
Glucose 87 mg/dl (70-99) 02/13/25 06:04
Vital Signs and I&O:
Vital Signs
Temp Pulse Resp BP Pulse Ox
98.5 F 89 20 129/64 99
02/13/25 07:03 02/13/25 09:00 02/13/25 07:03 02/13/25 08:54 02/13/25 07:03
Vital Signs
Temp Pulse Resp BP Pulse Ox
98.5 F 89 20 129/64 99
02/13/25 07:03 02/13/25 09:00 02/13/25 07:03 02/13/25 08:54 02/13/25 07:03
Intake & Output
02/11/25 02/12/25 02/13/25 02/14/25
06:59 06:59 06:59 06:59
Intake Total 0 / 0 1258.4 / 1258.4
Output Total 2925 / 2925 500 / 500 2750 / 2750
Balance -2925 / -2925 -500 / -500 -1491.6 / -1491.6
Physical Exam
Physical Exam
GEN: No distress, awake, alert, oriented x3
HEENT: supple, anicteric, mmm
LUNGS: CTA b/l, no wheezes/rales
CV: Reg, S1/S2, no murmur
ABD: soft, BS+, NT/ND
EXT: No clubbing, cyanosis, or edema
NEURO: Gross non-focal
SKIN: Warm, dry, no rash
--- NOTE | 2025-02-13 09:43 | PTCARENOTE ---
Received patient at change of shift during rounds. VSS stable. Nitro infusing at 20ml/hr and Protonix infusing at 10ml/hr. Patient resting in bed and denies complaints at this time. Patient taken down to US via stretcher.
[2025-02-13] MEDS: ZITHROMAX 250 MG PO (09:59)
[2025-02-13] MEDS: NSS (PRESERVATIVE FREE) IV (10:01)
[2025-02-13] MEDS: LASIX 40 MG IV (10:02)
--- NOTE | 2025-02-13 10:34 | W.PN.UPDATE ---
Update Note
Progress Note Update
STS Risk:
Procedure Type:�Isolated CABG
Perioperative Outcome Estimate %
Operative Mortality 9.76%
Morbidity & Mortality 25.7%
Stroke 1.58%
Renal Failure 8.23%
Reoperation 5.74%
Prolonged Ventilation 14.7%
Deep Sternal Wound Infection 0.191%
Long Hospital Stay (>14 days) 20.9%
Short Hospital Stay (<6 days)* 13.2%
Clinical Summary
Planned Surgery: Isolated CABG, Urgent, First cardiovascular surgery
Demographics: 79 year old, male, 81.8kg, 183cm, BMI: 24.4 kg/m�
Lab Values: Creatinine: 1.2 mg/dL, Hematocrit: 29%, WBC Count: 4.8 10�/�L, Platelet Count: 553657 cells/�L
Substance Abuse: Former smoker, Alcohol use: >=8 drinks/week
Risk Factors / Comorbidities: Hypertension
Pulmonary RF: Moderate CLD
Vascular RF: Peripheral Artery Disease
Cardiac Status: Acute heart failure, NYHA Class III, Ejection Fraction = 30%
Coronary Artery Disease: 3 vessels diseased, Non-ST Elevation LA, LA: 1 to 7 Days
Valve Disease: Moderate MR, Moderate TR
--- NOTE | 2025-02-13 11:34 | CM ---
Reviewed chart. Met with Mr. Kimball and his daughter to review discharge plans. Prior to admission he resides alone in a second floor apartment with an elevator access. Prior to admission he was independent with ambulation and adls. He has a leg
compression machine at home to use three a day to assist with circulation. He is currently not using it because it broke. They sent him a new part. He gets his medications from the [facility] via mail order. He states he will stay with his daughter in
[place] for a few days before returning to his apartment. His daughter resides in a two story home. He would only need to go upstairs to shower. Medical work-up in progress. The discharge plan is to return home with his daughter and a home visit
by the Transitional Care Nurse when medically stable.
We reviewed preop and post-op routines. We briefly reviewed the shower instructions. We reviewed restrictions including sternal precautions and driving restrictions. We discussed a home visit by the Transitional Care Nurse. He is agreeable to a
home visit. The plan is for CABG on 02/15/25.
[2025-02-13 14:22] LABS: Hematocrit 32.8 % (39.0-52.0); Hemoglobin 9.9 g/dL (13.0-18.0)
[2025-02-13] MEDS: FERRLECIT 110 MG IV (15:20)
--- NOTE | 2025-02-13 16:04 | PTCARENOTE ---
patient c/o right ant. site hurting, when I looked at it it is infiltrated, D/C'd, warm blanket placed on site. started new INT in left forearm # 22 P, infusing IV Nitroglycerin at 20mcg/min. the left upper forearm INT that is infusing IV protinix
is bleeding under dressing, changed dressing, site is clean D/I.
--- NOTE | 2025-02-13 16:08 | W.PN.HOSP.TC ---
Today's Communication/Plan
-
Assessment / Plan
Assessment / Plan
General: No Apparent Distress, Comfortable and Conversant
HEENT: NormoCephalic, Moist mucous membranes, Atraumatic
Respiratory: Clear and Non Labored Respirations
Cardiac: S1/S2 and Regular Rhythm; No Rub or Gallop
GI: Soft, Non Tender, Non Distended and Normal Bowel Sounds
Musculoskeletal: No Edema, no deformity
: NO Norman
Neuro: Awake, Alert, Nonfocal/grossly intact
Psych: Calm and Intact Judgment/Insight
Acute Heart Failure with Reduced EF
- Echo Jan 2025: Top normal left ventricular chamber size with moderately reduced left ventricular systolic function with ejection fraction 30 to 35%. Global hypokinesis. Mild left ventricular hypertrophy. Mild to moderate mitral regurgitation.
- Cardiac cath showed near normal to mildly elevated right and left sided filling pressures. Normal CO
- Continue with IV diuresis-decreased to once a day
- Weight down approximately 16 kg since admission, likely at his dry weight
- Renal function stable
- Beta-jenifer now with carvedilol, home metoprolol tartrate discontinued
Elevated Troponin, clinical concern for ischemia with inverted T waves in lateral leads
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
- Patient referred to cardiothoracic surgeon-plan for CABG tentatively this Thursday
-Off of heparin drip
-He was on aspirin and Plavix at home. Holding Plavix 3 surgery. On aspirin.
-chest pains concerning for angina. Currently on IV nitroglycerin drip
Iron-Deficiency Anemia
Heme positive stools
Gastric ulcers
-Patient reports he did have a colonoscopy earlier this year and had a precancerous polyp removed. He was scheduled for repeat colonoscopy in December which he cancelled due to his 's illness
- Started IV iron as patient has concurrent heart failure
- Status post endoscopy 02/12 which showed nonobstructing nonbleeding gastric ulcer with a visible vessel which was injected.
- Patient currently on IV PPI drip, diet restarted
Severe anemia suspected secondary to acute blood loss
Slow drop in H&H noted-hemoglobin 8.6 and patient currently having angina and has a multivessel CAD. Status post transfusion of 1 unit of PRBC 02/12, hemoglobin improved.
Unspecified Arrhythmia
In sinus rhythm
-On metoprolol and diltiazem at home, both discontinued
- Started on carvedilol
Essential Hypertension
-Continue metoprolol
-Off of losartan in anticipation of CABG
Hyperlipidemia
-Continue atorvastatin
Bronchiectasis -no flare
-Continue azithromycin
GERD
-Continue Pepcid
DVT proph: SCDs
Code Status: Full Code
Anticipated Discharge: > 48 hours
Subjective/Interval History
-
Date of Service: February 13, 2025
Patient was seen and examined at bedside this morning. No complaints. Daughter also present.
Objective Data
-
Labs:
Laboratory Results
02/13/25 02/13/25
06:04 14:16
Hgb 9.1 L 9.9 L
Hct 29.0 L 32.8 L
Sodium 138
Potassium 4.0
Chloride 101
Carbon Dioxide 32 H
BUN 23 H
Creatinine 1.2
Glucose 87
Calcium 9.0
Vital Signs:
Vital Signs
Temp Pulse Resp BP Pulse Ox
98.1 F 83 15 116/68 96
02/13/25 15:00 02/13/25 15:00 02/13/25 15:00 02/13/25 11:01 02/13/25 15:00
I&O
02/12/25 02/13/25 02/14/25
06:59 06:59 06:59
Intake Total 1258.4 / 1258.4 240 / 240
Output Total 500 / 500 2750 / 2750 1000 / 1000
Balance -500 / -500 -1491.6 / -1491.6 -760 / -760
Review of Systems
-
History Source: Patient
All other systems: Reviewed and negative
Physical Exam
-
General: No Apparent Distress
--- NOTE | 2025-02-13 17:00 | PTCARENOTE ---
Patient sitting up on side of bed. Denies chest pain. Patient ate 25% of lunch and reports not being very hungry. Dinner tray ordered.
[2025-02-13 20:17] LABS: Glucose - Point of Care 131 mg/dl (70-99)
--- NOTE | 2025-02-13 20:22 | W.PN.UPDATE ---
Update Note
Progress Note Update
-Called at bedside as the daughter is concerning of the patient change of mental status. Per daughter, he is confused and acting different from his baseline. Bs 130, afebrile, vital signs within baseline.
-On exam, the patient is alert and oriented x 3. no neuro deficit noted during the exam, no facial droop, or any other neuro symptoms noted. Denies pain, headache or any other symptoms during the exam. .
-Head CT, cbc, bmp, ua, lactic and covid ordered.
-Neg covid test, normal wbc and lactic acid.
-Head CT with no acute intracranial infarct or hemorrhage.
-Abnormal urinalysis result received and patient has difficulty to urinate noted per nursing staff at the time of collecting the urine sample.
-Will start the patient on ceftriaxone
[2025-02-13 20:49] LABS: Hematocrit 31.4 % (39.0-52.0); Hemoglobin 9.8 g/dL (13.0-18.0)
[2025-02-13 21:03] LABS: COVID-19 Antigen Negative (Negative)
[2025-02-13 21:08] LABS: Blood Urea Nitrogen 25 mg/dl (9-20); Calcium 8.9 mg/dl (8.4-10.2); Chloride 97 mmol/L (98-107); Estimated Creatinine Clearance 49 ml/min; Glucose 112 mg/dl (70-99); Potassium 4.1 mmol/L (3.5-5.1); Sodium 134 mmol/L (135-145); eGFR 51.77
[2025-02-13 21:17] LABS: Carbon Dioxide 32 mmol/L (22-30)
[2025-02-13 22:58] LABS: Mean Corp Hgb Conc. 30.7 g/dL (33.0-37.0); Mean Corpuscular Volume 80.9 fL (80.0-94.0); Platelet Count 207 10^3/uL (130-400); Red Cell Dist. Width 17.5 % (11.5-14.5)
[2025-02-14] VITALS (8 sets, daily range): BP systolic 95–120; BP diastolic 44–59; BMI 24.9
--- NOTE | 2025-02-14 00:15 | PTCARENOTE ---
Just after change of shift pt's daughter came out of room and stated that she thought her father was newly confused. She stated he's different than earlier in day. Unable to complete a thought. Making statements that weren't true. per daughter pt
was c/o pain in back of his head. Pt assessed. BRENDAN, equal hand grasps and leg strength. House BENZENE OPERATOR called to assess after pt stated 'something just isn't right'. pt stated he felt a little dizzy. B/P stable. stat labs including BS 131 completed.
Covid negative. Unable to obtain urine culture still at this time despite several attempts to void by pt.
Ct head neg. No further changes in pt noted.
--- NOTE | 2025-02-14 00:42 | PTCARENOTE ---
Pt's right antecub noted at change of shift to be red,firm, warm and painful to pt. no drainage noted. iv access already removed on day shift. Warm compress applied.
--- NOTE | 2025-02-14 01:05 | PTCARENOTE ---
UA specimen obtained, moo color urine. Pt definitely little more forgetful at this time. asking nursing about her new house (never discussed with pt),
days and nights off.
[2025-02-14 01:14] LABS: Urine Character Slightly Cloudy (Clear)
[2025-02-14 01:33] LABS: Urine Squamous Cell >30 /LPF (Few)
[2025-02-14 01:36] LABS: Urine Red Blood Cell 0-2 /HPF (0-2)
[2025-02-14 01:37] LABS: Urine White Cell 30-40 /HPF (0-5)
[2025-02-14] MEDS: STERILE WATER FOR INJECTION 10 ML IV (04:35)
[2025-02-14] MEDS: ROCEPHIN 1000 MG IV (04:35)
--- NOTE | 2025-02-14 04:43 | W.PN.CT ---
Today's Communication / Plan
-
Plan:
-Cont. current medical management per primary team
-Noted to have change of mental status overnight
-Head CT was negative, but U/A consistent with UTI, culture pending. Started on empiric Rocephin. TM 101, wbc 7.3
-Monitor rising creatinine, 1.4 this AM
-Heparin is off given recent GI bleed. Endoscopy revealed . GI following
-Ongoing preop evaluation/medical optimization
-For CABG pending Plavix washout and ongoing medical optimization
Assessment / Plan
-
Assessment:
-Acute HFrEF
-Newly diagnosed cardiomyopathy EF 30 to 35%
-Abnormal EKG with lateral ST-T wave changes
-Elevated troponin peak 0.1
-Mild to moderate mitral regurgitation
-Moderate tricuspid regurgitation with severe pulmonary hypertension, PASP 62 mmHg
-h/o PVD S/P RLE stent, 2008; unsuccessful attempted stenting 2 years ago
-Atrophic right kidney
-Bronchiectasis
-HTN
-HLD
-GERD
-Hx of colon polyps S/p polypectomy 09/2024
-Pending cancerous polypectomy, postponed d/t 's recent
-Anemia/New GI Bleed S/P endoscopy on 02/12/25 yielding Gastric Ulcer
-Suspected UTI
-Former tobacco use (quit 25 yrs ago)
-Daily alcohol, 2 drinks a day
-S/p multiple LE and LUE d/t shrapnel injury from [place]
Subjective
-
Date of Service: February 14, 2025
Objective Data
-
Lab Results
02/13/25 20:38
PT 14.5 Sec (11.4-14.6) 02/11/25 04:54
INR 1.11 02/11/25 04:54
APTT Cancelled 02/10/25 17:26
Vital Signs
Vital Signs
Temp Pulse Resp BP Pulse Ox
97.9 F 82 24 115/69 97
02/13/25 21:57 02/14/25 03:00 02/13/25 21:57 02/13/25 21:57 02/13/25 20:13
CT Intake/Output/Weight
02/13/25 02/13/25 02/14/25
06:59 18:59 06:59
Intake Total 630.4 / 1258.4 940 / 940
Output Total 2325 / 2750 1000 / 1200 200 / 1200
Balance -1694.6 / -1491.6 -60 / -260 -200 / -260
SaO2: 97
[2025-02-14] MEDS: PROTONIX 100 IV ×2 (04:51→15:54)
[2025-02-14 05:30] LABS: Hematocrit 30.0 % (39.0-52.0); Hemoglobin 9.2 g/dL (13.0-18.0); Mean Corp Hgb Conc. 30.7 g/dL (33.0-37.0); Mean Corpuscular Volume 81.7 fL (80.0-94.0); Platelet Count 190 10^3/uL (130-400); Red Cell Dist. Width 17.9 % (11.5-14.5)
[2025-02-14 05:41] LABS: VerifyNow PRU 249 PRU (180-376)
[2025-02-14] MEDS: TYLENOL 650 MG PO (06:35)
--- NOTE | 2025-02-14 06:44 | PTCARENOTE ---
Pt's temp 101, Tylenol given
[2025-02-14] MEDS: CLARITIN 10 MG PO (09:24)
[2025-02-14] MEDS: ASPIR LOW (ENTERIC COATED) 81 MG PO (09:24)
[2025-02-14] MEDS: COREG 12.5 MG PO ×2 (09:25→19:58)
[2025-02-14] MEDS: LIPITOR 80 MG PO (09:25)
[2025-02-14] MEDS: PEPCID 10 MG PO (09:26)
[2025-02-14] MEDS: NSS (PRESERVATIVE FREE) IV (09:29)
--- NOTE | 2025-02-14 10:09 | W.PN.CARDCBS ---
Addendum entered and electronically signed by Solomon Poon MD 02/14/25 10:42:
I saw and examined the patient.
The PICKLING OPERATOR or PA's note was reviewed and I agree with the note.
Comment: General: Well developed, well nourished in NAD.
Neck: Supple, no JVD, HJR, carotids +2 B/L, no bruits bilaterally.
Heart: Non displaced PMI, RRR, no murmurs, No S3, S4, no rubs.
Lungs: Clear to auscultation bilaterally, no wheeze, rhonchi, rubs bilaterally,
normal expiratory phase.
Extremities: No clubbing, cyanosis or edema bilaterally.
Neuro: Grossly nonfocal, awake, alert and oriented x3.
Discussed with patient and family at bedside. Discussed with CT surgery. Plan is for stent on 02/15 if renal function is stable. Creatinine 1.4 in 02/14. Discussed with GI and okay to resume Plavix.
Original Note:
Today's Communication / Plan
-
await GI input regarding timing to restart plavix, when ok for PCI
continue IV PPI, asa, IV nitro
follow Cr. holding lasix
treating for UTI
Impression / Plan
-
Primary Logging Supervisor: Dr. Funk with [facility] in [place], [place]
Impression:
Presented with SOB, LE edema
Acute HFrEF
Newly diagnosed ischemic cardiomyopathy EF 30 to 35%
Abnormal EKG with lateral ST-T wave changes
NSTEMI, peak trop 0.1
Mild to moderate mitral regurgitation
Moderate tricuspid regurgitation with severe pulmonary hypertension, PASP 62 mmHg
Microcytic anemia with gastric ulcer by EGD 02/12/25
h/o PVD with prior LE stents
Bronchiectasis
GERD
Past smoker quit 25 years ago
Daily alcohol, 2 drinks a day
Echo 02/08/2025: EF 30-35%, global hypokinesis, mild LVH, mild to moderate MR, moderate TR, estimated PAP 62 mmHg, severe pulmonary HTN
Right/left heart cath 02/10/2025: RA 9, PA 44/15, PCWP 10, CO/CI 4.8/2.29, LVEDP 22. LAD 80% ostial stenosis. Left circumflex with OM1 severe 80 to 90% proximal stenosis, 50% mid stenosis. RCA mid 90% stenosis then chronically totally occluded
Plan:
-Presented with worsening SOB, LE edema. Admitted with acute CHF. Also w/ chest discomfort at times w/ exertion.
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 After multidisciplinary discussion with CT surgery and interventional cardiology, he is planned for two-vessel PCI
- currently CP free on IV nitro gtt @20
- complicating matters also had melena and underwent EGD with gastric ulcer with visible vessel, injected and treated with bipolar cauterization. on IV PPI. GI following. hgb 9.2
- in SR on review of tele. continue asa. plavix on hold for now while decision regarding treatment of MV CAD being decided and with anemia/GI bleed
- Creatinine up to 1.4 as of last evening. Had change in mental status, felt to be due to UTI and was started on Rocephin. Mental status improved this morning. Repeat BMP pending. IV Lasix placed on hold. Weight down 26 pounds this admission if
accurate, 180 pounds on 02/14
- Echo 02/08 with EF newly reduced at 30-35%. GDMT as able with coreg. losartan on hold at present
- d/w patient and daughter at bedside. d/w nursing. d/w CT surg PICKLING OPERATOR
HPI: Patient is a 79-year-old male with past medical history of PVD, bronchiectasis, GERD who presented to [facility] ER due to worsening bilateral lower extremity edema, shortness of breath, chest tightness over the past 10 days. His
January 23 he states this was a stressor for him. Over the past 10 days he has noticed he has woken up typically in the morning with some chest discomfort and shortness of breath, typically pain will dissipate by around 10 AM. He also has had
worsening lower extremity edema which he states is unusual for him. He woke up this morning at 3 AM with the chest discomfort and shortness of breath and symptoms were more severe and persisted, prompting ER evaluation. Typically he resides in
[facility] and is visiting for the . He has been seen by blow mold operator in [place], and daughter is working on pulling up records. On arrival to the emergency room, proBNP elevated on arrival at 12,000. EKG with evidence of
lateral T wave abnormality with no prior to compare and troponin of 0.1. Cardiology consulted for evaluation. No present chest pain. Patient is chronically on aspirin and Plavix due to history of lower extremity stents. He denies any history of
coronary stenting, heart failure, cardiomyopathy, or valvular heart disease. He reports it was 'implied' that he had arrhythmia, but no clear history.
Progress Note - Logging Supervisor
Subjective
Date of Service: February 14, 2025
denies CP, SOB. reports LE edema significantly improved. no abd pain.
Objective
Labs:
02/14/25 05:01
Labs
Hgb 9.2 g/dL (13.0-18.0) L 02/14/25 05:01
Hct 30.0 % (39.0-52.0) L 02/14/25 05:01
Plt Count 190 10^3/uL (130-400) 02/14/25 05:01
PT 14.5 Sec (11.4-14.6) 02/11/25 04:54
INR 1.11 02/11/25 04:54
APTT Cancelled 02/10/25 17:26
Sodium 134 mmol/L (135-145) L 02/13/25 20:38
Potassium 4.1 mmol/L (3.5-5.1) 02/13/25 20:38
BUN 25 mg/dl (9-20) H 02/13/25 20:38
Creatinine 1.4 mg/dL (0.7-1.3) H 02/13/25 20:38
Glucose 112 mg/dl (70-99) H 02/13/25 20:38
Vital Signs and I&O:
Vital Signs
Temp Pulse Resp BP Pulse Ox
99.2 F 84 18 115/69 94
02/14/25 07:00 02/14/25 05:00 02/14/25 07:00 02/13/25 21:57 02/14/25 07:00
Vital Signs
Temp Pulse Resp BP Pulse Ox
99.2 F 84 18 115/69 94
02/14/25 07:00 02/14/25 05:00 02/14/25 07:00 02/13/25 21:57 02/14/25 07:00
Intake & Output
02/12/25 02/13/25 02/14/25 02/15/25
07:59 07:59 07:59 07:59
Intake Total 1240.4 / 1240.4 940 / 940
Output Total 500 / 500 2750 / 2750 1200 / 1200
Balance -482 / -482 -1509.6 / -1509.6 -260 / -260
Physical Exam
Physical Exam
GEN: No distress, awake, alert, oriented x3
HEENT: supple, anicteric, mmm, eomi
LUNGS: CTA B/L, no wheezes/rales
CV: Reg, S1/S2, no murmur
ABD: soft, BS+, NT/ND
EXT: No cyanosis, clubbing, edema
NEURO: Gross non-focal
SKIN: Warm, pink, dry. No rash
[2025-02-14] MEDS: PLAVIX 600 MG PO (10:51)
--- NOTE | 2025-02-14 11:00 | W.PN.GI.CBS2 ---
Today's Communication / Plan
-
ppi, monitor hb, overt bleeding
Assessment / Plan
-
79yo male presents with CP, SOB, LE edema with cath shows multivessel CAD and echo shows cardiomyopathy, planning for CABG but found to have melena s/p EGD 02/[address] Gregory with with VV vs pigmented spot treated with epi and bicap.
Given high cardiac risk, ok GI POV for any meds/interventions needed for cardiac issues. Discussed with cards today ok to forward with procedures/plavix etc as deemed necessary. First 72 hours higher risk of bleeding but cardiac issues are more
pressing and I personally reviewed the pictures of the ulcers these are not large ulcers. If necessary endoscopy can also be performed on DAPT.
Continue PPI gtt x 72 hours (until Thu) then PPI IV BID transition to oral on discharge for a total of 8 weeks of PPI IV BID then daily.
Path pending for HP unclear why had .
Trend Hb/stools.
Subjective
Subjective
Date of Service: February 14, 2025
No BM
No abd pain
No GI issues
Fever overnight
Objective
Data Reviewed
Laboratory Data:
Laboratory Results
02/14/25 05:01
Laboratory Results
PT 14.5 Sec (11.4-14.6) 02/11/25 04:54
INR 1.11 02/11/25 04:54
APTT Cancelled 02/10/25 17:26
Magnesium 1.8 mg/dl (1.6-2.3) 02/12/25 11:26
Total Bilirubin 0.5 mg/dl (0.2-1.3) 02/11/25 04:54
AST 19 U/L (17-59) 02/11/25 04:54
ALT 15 U/L (0-50) 02/11/25 04:54
Alkaline Phosphatase 80 U/L (38-126) 02/11/25 04:54
Vital Signs and I&O:
Vital Signs
Temp Pulse Resp BP Pulse Ox
99.2 F 84 18 115/69 94
02/14/25 07:00 02/14/25 05:00 02/14/25 07:00 02/13/25 21:57 02/14/25 07:00
I&O
02/13/25 02/14/25 02/15/25
06:59 06:59 06:59
Intake Total 1258.4 / 1258.4 940 / 940
Output Total 2750 / 2750 1200 / 1200
Balance -1491.6 / -1491.6 -260 / -260
Physical Exam
Physical Exam
GI: Non Distended and Non Tender
--- NOTE | 2025-02-14 11:47 | PTCARENOTE ---
Pt has diffuse red raised rash on back, order obtained for Dr Enriquez for hydrocortisone cream. Pt also has old IV infiltrate R AC area, pink, swollen and warm, warm compress applied.
[2025-02-14 11:59] LABS: Blood Urea Nitrogen 28 mg/dl (9-20); Calcium 8.5 mg/dl (8.4-10.2); Carbon Dioxide 32 mmol/L (22-30); Chloride 93 mmol/L (98-107); Estimated Creatinine Clearance 36 ml/min; Glucose 175 mg/dl (70-99); Potassium 3.8 mmol/L (3.5-5.1); Sodium 133 mmol/L (135-145); eGFR 35.88
[2025-02-14] MEDS: HYDROCORTISONE 1% CREAM 1 APPLIC TOPICAL ×2 (13:35→19:59)
--- NOTE | 2025-02-14 14:49 | W.PN.HOSP.TC ---
Today's Communication/Plan
-
Assessment / Plan
Assessment / Plan
General: No Apparent Distress, Comfortable and Conversant
HEENT: NormoCephalic, Moist mucous membranes, Atraumatic
Respiratory: Clear and Non Labored Respirations
Cardiac: S1/S2 and Regular Rhythm; No Rub or Gallop
GI: Soft, Non Tender, Non Distended and Normal Bowel Sounds
Musculoskeletal: No Edema, no deformity
: NO Norman
Neuro: Awake, Alert, Nonfocal/grossly intact
Psych: Calm and cooperative
Acute Heart Failure with Reduced EF
- Echo Jan 2025: Top normal left ventricular chamber size with moderately reduced left ventricular systolic function with ejection fraction 30 to 35%. Global hypokinesis. Mild left ventricular hypertrophy. Mild to moderate mitral regurgitation.
- Cardiac cath showed near normal to mildly elevated right and left sided filling pressures. Normal CO
- Continue with IV diuresis-decreased to once a day, dose held today for rising creatinine
- Weight down since admission, likely at his dry weight currently
- Beta-jenifer now with carvedilol, home metoprolol tartrate discontinued
Elevated Troponin, clinical concern for ischemia with inverted T waves in lateral leads
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
- Patient referred to cardiothoracic surgeon for possible CABG
- Now current plan is tentatively for two-vessel PCI tomorrow Thursday 02/15
- Off of heparin drip, okay with GI to restart Plavix
UTI:
- Episode of mental status change overnight 02/13
- CT brain negative
- Urinalysis with pyuria and bacteriuria, culture pending
- Started empirically on ceftriaxone
JUAN:
- Kidney function worse today, creatinine 1.9
- Baseline creatinine appears to be around 1.2
- Likely secondary to diuresis
- Hold Lasix dose today
- Monitor
Iron-Deficiency Anemia
Heme positive stools
Gastric ulcers
-Patient reports he did have a colonoscopy earlier this year and had a precancerous polyp removed. He was scheduled for repeat colonoscopy in December which he cancelled due to his 's illness
- Started IV iron as patient has concurrent heart failure
- Status post endoscopy 02/12 which showed nonobstructing nonbleeding gastric ulcer with a visible vessel which was injected.
- Patient currently on IV PPI drip which will be continued through tonight then transition to IV twice daily 02/15, tolerating diet
- Okay to restart Plavix
Severe anemia suspected secondary to acute blood loss
Slow drop in H&H noted-hemoglobin 8.6 and patient currently having angina and has a multivessel CAD. Status post transfusion of 1 unit of PRBC 02/12, hemoglobin improved, stable.
Unspecified Arrhythmia
In sinus rhythm
-On metoprolol and diltiazem at home, both discontinued
- Started on carvedilol
Essential Hypertension
-Continue metoprolol
-Off of losartan in anticipation of CABG
Hyperlipidemia
-Continue atorvastatin
Bronchiectasis -no flare
-Continue azithromycin
GERD
-Continue Pepcid
DVT proph: SCDs
Code Status: Full Code
Anticipated Discharge: > 48 hours
Subjective/Interval History
-
Date of Service: February 14, 2025
Patient was seen and examined at bedside this morning. Had an episode of altered mental status overnight. CT imaging of his brain was unremarkable. Urinalysis was positive for pyuria and bacteriuria. He was started on antibiotics for UTI. Calm
and comfortable this morning.
Objective Data
-
Labs:
Laboratory Results
02/14/25 02/14/25
05:01 11:20
WBC 7.3
Hgb 9.2 L
Hct 30.0 L
Plt Count 190
Sodium 133 L
Potassium 3.8
Chloride 93 L
Carbon Dioxide 32 H
BUN 28 H
Creatinine 1.9 H
Glucose 175 H
Calcium 8.5
Vital Signs:
Vital Signs
Temp Pulse Resp BP Pulse Ox
99.5 F 75 16 95/46 95
02/14/25 11:32 02/14/25 12:00 02/14/25 11:32 02/14/25 11:29 02/14/25 11:32
I&O
02/13/25 02/14/25 02/15/25
06:59 06:59 06:59
Intake Total 1258.4 / 1258.4 940 / 940
Output Total 2750 / 2750 1200 / 1200
Balance -1491.6 / -1491.6 -260 / -260
Review of Systems
-
History Source: Patient
All other systems: Reviewed and negative
Physical Exam
-
General: No Apparent Distress
--- NOTE | 2025-02-14 14:52 | CM ---
Reviewed chart. Tried to see Mr. Kimball several times today he was sleeping. Telephone call to daughter, Arabella to review discharge plans. She states they medical team was deciding if he will need CABG verses PCI. Prior to admission he resides alone
in a second floor apartment with an elevator access. Prior to admission he was independent with ambulation and adls. He has a leg compression machine at home to use three a day to assist with circulation. He is currently not using it because it
broke. They sent him a new part. He gets his medications from the [facility] via mail order. He will stay with his daughter in [place] for a few days before returning to his apartment. His daughter resides in a two story home. He would only need to
go upstairs to shower. Will need to seehis current functional level to see if he will have any skilled care needs. Medical work-up in progress. The discharge plan is to return home with his daughter and VNA services verses SNF/Rehab. if
indicated.
--- NOTE | 2025-02-14 15:44 | W.PN.UPDATE ---
Update Note
Progress Note Update
Cr today up to 1.9. nursing reports patient also not fully back to baseline mental status (being treated for UTI). will hold nephrotoxic agents and follow Cr, hopefully will be ready for cath. CT surgery updated. d/w nursing
[2025-02-15] VITALS (15 sets, daily range): BP systolic 89–113; BP diastolic 38–66; PULSE 72; O2SAT 98; BMI 24.9
[2025-02-15] MEDS: PROTONIX 100 IV (02:24)
--- NOTE | 2025-02-15 03:20 | PTCARENOTE ---
Received pt @ change of shift. AAOx3, flat affect and forgetful @ times. Bed alarm on for patient safety. VSS-- NSR w/ PVCs on monitor. Right radial site open to air, soft to touch. Right brachial site open to air-- warm, pink, hard, painful--
possible infiltration from previous day. Reached out to [facility] nurse-- Rissa Brock-- informed to apply heat compress, but not able to do anything if infiltrate due to being past 24 hrs. Heat applied throughout night. Nitro gtt running through left
forearm @ 20 mcg for CP and protonix gtt running through left AC @ 8 mg/hr. Discussed plan of care with patient. Verbalizes understanding. Plan of care ongoing. Call conner within reach.
[2025-02-15] MEDS: STERILE WATER FOR INJECTION 10 ML IV (04:23)
[2025-02-15] MEDS: ROCEPHIN 1000 MG IV (04:23)
[2025-02-15 06:03] LABS: Blood Urea Nitrogen 39 mg/dl (9-20); Calcium 8.3 mg/dl (8.4-10.2); Carbon Dioxide 29 mmol/L (22-30); Chloride 95 mmol/L (98-107); Estimated Creatinine Clearance 32 ml/min; Glucose 97 mg/dl (70-99); Potassium 4.3 mmol/L (3.5-5.1); Sodium 131 mmol/L (135-145); eGFR 31.82
[2025-02-15] MEDS: NSS (PRESERVATIVE FREE) IV (08:38)
[2025-02-15] MEDS: PEPCID 10 MG PO (08:43)
[2025-02-15] MEDS: LIPITOR 80 MG PO (08:43)
[2025-02-15] MEDS: CLARITIN 10 MG PO (08:44)
[2025-02-15] MEDS: ASPIR LOW (ENTERIC COATED) 81 MG PO (08:44)
[2025-02-15] MEDS: PLAVIX 75 MG PO (08:44)
[2025-02-15] MEDS: HYDROCORTISONE 1% CREAM 1 APPLIC TOPICAL ×2 (08:44→20:01)
[2025-02-15] MEDS: COREG 12.5 MG PO ×2 (08:44→20:02)
[2025-02-15] MEDS: ZITHROMAX 250 MG PO (08:46)
--- NOTE | 2025-02-15 10:59 | PTCARENOTE ---
Pt is AOx2, confused to place this AM. SR w/PVCs on tele monitor, BP low 95/45, cardiology made aware. Nitro gtt stopped due to low BP. Yvette Boggs PA-C, made aware. Pt pulled IVs out this AM, replaced and restarted protonix gtt per orders. Bed
alarm on and audible. Call conner within reach.
--- NOTE | 2025-02-15 11:50 | PN.CDI ---
CDI
- -
CDI:
Physician Documentation Request
Admit Date: 02/08/25 18:54
Dear Doctor Colt,
Patient admitted with acute systolic CHF.
02/12 Endoscopy Report, 'Non-obstructing non-bleeding gastric ulcers with a visible vessel.'
Please clarify which of the following accurately represents the acuity of the gastric ulcer:
Acute
Acute on chronic
Chronic
Other
Use of terms such as suspected, likely, concern for, or probable (associated with a specific diagnosis that is being evaluated, monitored, or treated as if it exists) are acceptable and can be coded in the inpatient setting, when documented at the
time of discharge.
Thank you,
Kayli WALLIS,RN,CCDS
CDI Specialist
Available via tiger text
Please use your independent medical judgment in providing your response.
--- NOTE | 2025-02-15 12:06 | W.PN.CARDCBS ---
Addendum entered and electronically signed by Светлана Beverly MD 02/16/25 08:50:
Late Note entry
I saw and examined the patient.
The Cooler Service Supervisor's note was reviewed and I agree with the note.
Comment: Patient was seen and examined bedside at around 7 PM on February 15, 2025. He remembered my name and had a very lucid conversation. He reports some back pain just from laying in bed and therefore is laying on his side this evening. He
denies any recurrent chest discomfort or shortness of breath. Per nurses earlier in the day he was off-and-on confused and pulled out all IVs.
On exam patient is well-appearing, no acute distress, awake, alert and oriented x 3, regular rate, normal S1 and S2, lungs are clear to auscultation bilaterally, no significant JVD, abdomen is soft, nontender, nondistended with active bowel sounds,
warm extremities without significant edema. Recent cath access site without evidence of hematoma or bruit.
Recommendations:
1. Creatinine is still uptrending and is at 2.1 today. I had an extensive discussion with patient, his daughter, Elizabeth over the phone regarding this. We will have to see when the creatinine peaks, plateaus and hopefully starts downtrending. We
do appreciate nephrology input. For now we will avoid nephrotoxic agents and continue to monitor very closely with repletion of electrolytes as needed in the setting of new LV dysfunction.
2. 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
left main. He may possibly need shockwave to the ostial LAD plus or minus a IABP for support depending on how he does hemodynamically. In the setting given it would be a complex intervention warranting contrast dye, I do not feel like pushing him
later this week on Thursday even if the creatinine were to start coming down would be a good idea given patient is extremely high risk for another injury due to contrast possibly. I would see how he does through the weekend and plan for intervention
early next week as long as no other acute issues come up and in the hopes that the renal function completely recovers back to baseline.
3. In the interim we will continue to optimize goal-directed medical therapy.
4. Patient was loaded with Plavix so is continuing on dual antiplatelet therapy in preparation for stents with stable hemoglobins which we will continue to monitor very closely.
5. With waxing and waning mental status, concern for possible hospital delirium. Strongly encourage sleep hygiene and conservative measures first.
Discussed all of the above in extensive detail with patient and nursing. Called Elizabeth on her cell phone around 7:30 PM and discussed all of the above in extensive detail and answered all questions.
Светлана Beverly MD, LOCATED WITHIN [facility]
Total time spent: 52-minutes
Original Note:
Today's Communication / Plan
-
follow Cr. holding nephrotoxic agents
follow mental status
follow hgb. continue asa, plavix
for eventual PCI when above resolved
Impression / Plan
-
Primary Hotel Services Sales Representative: Dr. Funk with [facility] in [place], [place]
Impression:
Presented with SOB, LE edema
Acute HFrEF
Newly diagnosed ischemic cardiomyopathy EF 30 to 35%
Abnormal EKG with lateral ST-T wave changes
NSTEMI, peak trop 0.1
Mild to moderate mitral regurgitation
Moderate tricuspid regurgitation with severe pulmonary hypertension, PASP 62 mmHg
Microcytic anemia with gastric ulcer by EGD 02/12/25
h/o PVD with prior LE stents
Bronchiectasis
GERD
Past smoker quit 25 years ago
Daily alcohol, 2 drinks a day
Echo 02/08/2025: EF 30-35%, global hypokinesis, mild LVH, mild to moderate MR, moderate TR, estimated PAP 62 mmHg, severe pulmonary HTN
Right/left heart cath 02/10/2025: RA 9, PA 44/15, PCWP 10, CO/CI 4.8/2.29, LVEDP 22. LAD 80% ostial stenosis. Left circumflex with OM1 severe 80 to 90% proximal stenosis, 50% mid stenosis. RCA mid 90% stenosis then chronically totally occluded
Plan:
- Presented with worsening SOB, LE edema. Admitted with acute CHF. Also w/ chest discomfort at times w/ exertion.
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 After multidisciplinary discussion with CT surgery and interventional cardiology, he is planned for two-vessel PCI this admission
- currently CP free. IV nitro placed on hold by me due to hypotension
- complicating matters patient now with Cr up to 2.1. suspected multifactorial secondary to contrast, diuresis, UTI, and OP losartan. nephrotoxic agents on hold. nephrology following
- with some mental status changes, waxing and waning over the last 48 hours. ripped his IVs out this morning. will follow. may need neurology eval if persists
- also had melena and underwent EGD with gastric ulcer with visible vessel, injected and treated with bipolar cauterization. on IV PPI. GI following.
- in SR on review of tele. continue asa. plavix resumed 02/14 as per GI recs
- Echo 02/08 with EF newly reduced at 30-35%. GDMT as able with coreg. losartan on hold at present
- d/w patient and daughter at bedside. d/w nursing. d/w nephrology
HPI: Patient is a 79-year-old male with past medical history of PVD, bronchiectasis, GERD who presented to [facility] ER due to worsening bilateral lower extremity edema, shortness of breath, chest tightness over the past 10 days. His
January 23 he states this was a stressor for him. Over the past 10 days he has noticed he has woken up typically in the morning with some chest discomfort and shortness of breath, typically pain will dissipate by around 10 AM. He also has had
worsening lower extremity edema which he states is unusual for him. He woke up this morning at 3 AM with the chest discomfort and shortness of breath and symptoms were more severe and persisted, prompting ER evaluation. Typically he resides in
[facility] and is visiting for the . He has been seen by precision layout worker in [place], and daughter is working on pulling up records. On arrival to the emergency room, proBNP elevated on arrival at 12,000. EKG with evidence of
lateral T wave abnormality with no prior to compare and troponin of 0.1. Cardiology consulted for evaluation. No present chest pain. Patient is chronically on aspirin and Plavix due to history of lower extremity stents. He denies any history of
coronary stenting, heart failure, cardiomyopathy, or valvular heart disease. He reports it was 'implied' that he had arrhythmia, but no clear history.
Progress Note - Hotel Services Sales Representative
Subjective
Date of Service: February 15, 2025
'Apparently I am a wendyoney tune'. No CP.
Objective
Labs:
02/14/25 05:01
02/15/25 05:12
Labs
Hgb 9.2 g/dL (13.0-18.0) L 02/14/25 05:01
Hct 30.0 % (39.0-52.0) L 02/14/25 05:01
Plt Count 190 10^3/uL (130-400) 02/14/25 05:01
PT 14.5 Sec (11.4-14.6) 02/11/25 04:54
INR 1.11 02/11/25 04:54
APTT Cancelled 02/10/25 17:26
Sodium 131 mmol/L (135-145) L 02/15/25 05:12
Potassium 4.3 mmol/L (3.5-5.1) 02/15/25 05:12
BUN 39 mg/dl (9-20) H 02/15/25 05:12
Creatinine 2.1 mg/dL (0.7-1.3) H 02/15/25 05:12
Glucose 97 mg/dl (70-99) 02/15/25 05:12
Vital Signs and I&O:
Vital Signs
Temp Pulse Resp BP Pulse Ox
99.8 F 80 18 108/59 96
02/15/25 06:45 02/15/25 08:44 02/15/25 06:45 02/15/25 08:44 02/15/25 06:45
Vital Signs
Temp Pulse Resp BP Pulse Ox
99.8 F 80 18 108/59 96
02/15/25 06:45 02/15/25 08:44 02/15/25 06:45 02/15/25 08:44 02/15/25 06:45
Intake & Output
02/13/25 02/14/25 02/15/25 02/16/25
07:59 07:59 07:59 07:59
Intake Total 1240.4 / 1240.4 940 / 940
Output Total 2750 / 2750 1200 / 1200 550 / 550
Balance -1509.6 / -1509.6 -260 / -260 -550 / -550
Physical Exam
Physical Exam
GEN: No distress, awake, alert, oriented to self, place
HEENT: supple, anicteric, mmm, eomi
LUNGS: CTA B/L, no wheezes/rales
CV: Reg, S1/S2, no murmur
ABD: soft, BS+, NT/ND
EXT: No cyanosis, clubbing, edema
NEURO: Gross non-focal
SKIN: Warm, pink, dry. No rash
--- NOTE | 2025-02-15 12:19 | CM ---
Reviewed chat. Met with Mr. Kimball and his daughter to review discharge plans. He states he is feeling okay. Prior to admission he resides alone in a second floor apartment with an elevator access. Prior to admission he was independent with
ambulation and adls. He has a leg compression machine at home to use three a day to assist with circulation. He is currently not using it because it broke. They sent him a new part. He gets his medications from the [facility] via mail order. He will
stay with his daughter in [place] for a few days before returning to his apartment. His daughter resides in a two story home. He would only need to go upstairs to shower. Will need to see his current functional level to see if he will have any
skilled care needs. Medical work-up in progress. The discharge plan is to return home with his daughter and V[facility] services verses SNF/Rehab. if indicated.
--- NOTE | 2025-02-15 12:44 | W.PN.GI.CBS2 ---
Today's Communication / Plan
-
check hb daily, change ppi gtt to bid, gi signing off
Assessment / Plan
-
79yo male presents with CP, SOB, LE edema with cath shows multivessel CAD and echo shows cardiomyopathy, planning for CABG but found to have melena s/p EGD 02/[address] Gregory with with VV vs pigmented spot treated with epi and bicap.
Given high cardiac risk, ok GI POV for any meds/interventions needed for cardiac issues. Discussed with cards yesterday ok to forward with procedures/plavix etc as deemed necessary. Plavix resumed yesterday.
Change PPI gtt to PPI IV BID transition to oral on discharge for a total of 8 weeks of PPI IV BID then daily.
Path pending for HP unclear why had .
Trend Hb/stools. Pls check hb daily.
Dr. Gregory recommended outpatient GI follow up with him pls call office to schedule when discharged.
GI will sign off if Hb today is stable. Pls call with ?s.
Subjective
Subjective
Date of Service: February 15, 2025
no bm recorded since 02/10
pt with no pain
no hemoglobin checked today
Objective
Data Reviewed
Laboratory Data:
Laboratory Results
02/14/25 05:01
02/15/25 05:12
Laboratory Results
PT 14.5 Sec (11.4-14.6) 02/11/25 04:54
INR 1.11 02/11/25 04:54
APTT Cancelled 02/10/25 17:26
Magnesium 1.8 mg/dl (1.6-2.3) 02/12/25 11:26
Total Bilirubin 0.5 mg/dl (0.2-1.3) 02/11/25 04:54
AST 19 U/L (17-59) 02/11/25 04:54
ALT 15 U/L (0-50) 02/11/25 04:54
Alkaline Phosphatase 80 U/L (38-126) 02/11/25 04:54
Vital Signs and I&O:
Vital Signs
Temp Pulse Resp BP Pulse Ox
99.8 F 80 18 108/59 96
02/15/25 06:45 02/15/25 08:44 02/15/25 06:45 02/15/25 08:44 02/15/25 06:45
I&O
02/14/25 02/15/25 02/16/25
06:59 06:59 06:59
Intake Total 940 / 940
Output Total 1200 / 1200 550 / 550
Balance -260 / -260 -550 / -550
Physical Exam
Physical Exam
GI: Non Distended and Non Tender
[2025-02-15] MEDS: PROTONIX IV (12:55)
[2025-02-15 14:46] LABS: Hematocrit 26.5 % (39.0-52.0); Hemoglobin 8.5 g/dL (13.0-18.0); Mean Corp Hgb Conc. 32.1 g/dL (33.0-37.0); Mean Corpuscular Volume 78.9 fL (80.0-94.0); Nucleated Red Blood Cells % 0 % (-); Platelet Count 156 10^3/uL (130-400); Red Cell Dist. Width 18.6 % (11.5-14.5)
--- NOTE | 2025-02-15 15:06 | W.CON.NEPH ---
Consultation
-
Date/Time Consultation Requested: 02/15/2025 9 AM
Date/Time Consultation Performed: 02/15/2025 10 AM
Requesting Provider: Dr. Joshi
Performing Provider: Dr. Ball
Reason for Consultation: JUAN
Medical History
-
Chief Complaint: Shortness of breath
History of Present Illness:
This is a 79-year-old gentleman who has hyperlipidemia controlled with statin therapy, hypertension controlled with a multidrug regimen, disease with lower extremity on an anti-platelet regimen which is stable. Over a week and a half he developed
worsening lower extreme edema with shortness of breath and chest tightness. The symptoms brought him to the emergency room for evaluation. He underwent cardiac catheterization on 02/10/2025 which showed multivessel disease. CT surgery did not
feel this was a good surgical case given by a porcelain aorta. He was then referred back for high risk intervention by cardiology. In the last 2 days his creatinine has now began to rise up to 2.1. He also has developing hyponatremia as well. He
also developed melena and underwent EGD and intervention. This is felt to be due to a gastric ulcer. His blood pressures have been on the lower side as well recently.
Past Medical History
Peripheral Arterial Disease s/p RLE Stents
Arrhythmia
Essential Hypertension
Hyperlipidemia
Atrophic Right Kidney
Bronchiectasis
GERD
RLE Stents
Multiple Surgeries for wounds during [place] War
Social History
Tobacco: Former Smoker
Alcohol: Daily
Family History
Family History: Not Pertinent
Allergies / Home Medications
Allergy/AdvReac Type Severity Reaction Status Date / Time
hydrochlorothiazide Allergy Mild Nausea Verified 02/08/25 18:29
lisinopril Allergy Nausea Verified 02/08/25 18:29
�Medication �Instructions �Recorded �Confirmed �Type
acetaminophen 325 mg tablet 650 mg PO Q6HPRN PRN mild pain 02/08/25 02/08/25 History
(Tylenol)
aspirin 81 mg tablet,delayed 81 mg PO DAILY Blood Pressure 02/08/25 02/08/25 History
release
atorvastatin 80 mg tablet (Lipitor) 80 mg PO DAILY High Cholesterol 02/08/25 02/08/25 History
azithromycin 250 mg tablet 250 mg PO MOWEFR Infection 02/08/25 02/08/25 History
clopidogrel 75 mg tablet (Plavix) 75 mg PO DAILY Blood Clot 02/08/25 02/08/25 History
Prevention/Tx
diltiazem HCl 360 mg capsule,24 360 mg PO DAILY Heart 02/08/25 02/08/25 History
hr,extended release Disease/Condition
famotidine 10 mg tablet (Pepcid AC) 10 mg PO DAILY Gastrointestinal 02/08/25 02/08/25 History
Issue
loratadine 10 mg tablet 10 mg PO DAILY Allergies 02/08/25 02/08/25 History
losartan 100 mg tablet 100 mg PO DAILY Blood Pressure 02/08/25 02/08/25 History
metoprolol tartrate 25 mg tablet 12.5 mg PO BID Heart 02/08/25 02/08/25 History
Disease/Condition
Review of Systems
-
All other systems: Negative unless noted
Physical Exam
Vital Signs
Vital Signs
Temp Pulse Resp BP Pulse Ox
97.7 F 72 18 108/59 96
02/15/25 11:55 02/15/25 11:55 02/15/25 11:55 02/15/25 08:44 02/15/25 11:55
Lab Results
WBC 5.6 10^3/uL (4.8-10.8) 02/15/25 14:36
RBC 3.36 10^6/uL (4.70-6.10) L 02/15/25 14:36
Hgb 8.5 g/dL (13.0-18.0) L 02/15/25 14:36
Hct 26.5 % (39.0-52.0) L 02/15/25 14:36
Plt Count 156 10^3/uL (130-400) 02/15/25 14:36
Sodium 131 mmol/L (135-145) L 02/15/25 05:12
Potassium 4.3 mmol/L (3.5-5.1) 02/15/25 05:12
Chloride 95 mmol/L (98-107) L 02/15/25 05:12
Carbon Dioxide 29 mmol/L (22-30) 02/15/25 05:12
BUN 39 mg/dl (9-20) H 02/15/25 05:12
Creatinine 2.1 mg/dL (0.7-1.3) H 02/15/25 05:12
eGFR 31.82 02/15/25 05:12
Glucose 97 mg/dl (70-99) 02/15/25 05:12
Calcium 8.3 mg/dl (8.4-10.2) L 02/15/25 05:12
Arq-P-Vnavjyrknnq Pept 26309 pg/ml 02/08/25 15:30
Albumin 3.3 g/dl (3.5-5.0) L 02/11/25 04:54
Laboratory Tests
02/08/25 02/13/25 02/13/25
15:30 06:04 20:38
Sodium 136 138
Creatinine 1.3 1.2 1.4 H
Physical Exam
Patient is awake alert oriented and in no distress. Mood and affect were pleasant, insight and judgment were good. Pupils are equal round and reactive to light, extraocular movements are intact, sclera were anicteric. Hearing was normal, ears and
nose are intact. Oropharynx was clear. Neck was supple with trachea midline and no thyromegaly. Heart was regular rate and rhythm without rubs. Lower extremities without edema. Lungs were clear to auscultation bilaterally and with normal
excursion. Abdomen was soft, nontender, with normal active bowel sounds, and no hepatosplenomegaly. Skin was without rash and with normal turgor.
Assessment/Plan
-
Assessment
JUNA
Hyponatremia
Coronary artery disease
Heart failure reduced ejection fraction 30% non-ST elevation WA
Moderate TR, severe pulmonary hypertension
Anemia
gastric ulcer
Peripheral artery disease with lower extremity stent
bronchiectasis
Plan
Holding Lasix
Check urine studies
Check PVR
Cath on hold given worsening renal function
follow BMP
Because of JUAN may more likely be hemodynamics and prerenal state. Last catheterization was several days farther out than expected for this JUAN
--- NOTE | 2025-02-15 15:31 | W.PN.HOSP.TC ---
Today's Communication/Plan
-
Assessment / Plan
Assessment / Plan
General: No Apparent Distress, Comfortable and Conversant
HEENT: NormoCephalic, Moist mucous membranes, Atraumatic
Respiratory: Clear and Non Labored Respirations
Cardiac: S1/S2 and Regular Rhythm; No Rub or Gallop
GI: Soft, Non Tender, Non Distended and Normal Bowel Sounds
Musculoskeletal: No Edema, no deformity
: NO [place]
Neuro: Awake, Alert, Nonfocal/grossly intact, intermittent confusion
Psych: Calm and cooperative
Acute Heart Failure with Reduced EF
- Echo Jan 2025: Top normal left ventricular chamber size with moderately reduced left ventricular systolic function with ejection fraction 30 to 35%. Global hypokinesis. Mild left ventricular hypertrophy. Mild to moderate mitral regurgitation.
- Cardiac cath showed near normal to mildly elevated right and left sided filling pressures. Normal CO
-holding diuresis due to worsening renal function
- Weight down since admission, likely at his dry weight currently
- Beta-jenifer now with carvedilol, home metoprolol tartrate discontinued
Elevated Troponin, clinical concern for ischemia with inverted T waves in lateral leads
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
- Patient referred to cardiothoracic surgeon for possible CABG
- Now current plan is tentatively for two-vessel PCI pending improvement in renal function
- Off of heparin drip, okay with GI to restart Plavix
Altered mental status:
- Patient reports intermittent confusion and sometimes appears to not know where he is
- Suspect multifactorial including due to UTI and hospital delirium
- CT brain shows no acute intracranial abnormalities
- Confusion possibly due to antibiotics for UTI, have switched to treatment with ampicillin instead of ceftriaxone
UTI:
- Has had intermittent episodes of confusion
- Urinalysis with pyuria and bacteriuria, culture growing Enterococcus
- Started empirically on ceftriaxone, however now changed to treatment with ampicillin for treatment of Enterococcus pending specific sensitivities
JUAN:
- Kidney function worse today, creatinine 2.1
- Baseline creatinine appears to be around 1.2
- Likely secondary to diuresis
- Continuing to hold Lasix dose today
- Nephrology following, urine studies pending
- Monitor
Iron-Deficiency Anemia
Heme positive stools
Gastric ulcers
-Patient reports he did have a colonoscopy earlier this year and had a precancerous polyp removed. He was scheduled for repeat colonoscopy in December which he cancelled due to his 's illness
- Started IV iron as patient has concurrent heart failure
- Status post endoscopy 02/12 which showed nonobstructing nonbleeding gastric ulcer with a visible vessel which was injected.
- Transitioned to PPI IV twice daily 02/15, tolerating diet
- Restarted Plavix
- Hemoglobin trending slowly downward, will monitor
Severe anemia suspected secondary to acute blood loss
Slow drop in H&H noted-hemoglobin 8.6 and patient currently having angina and has a multivessel CAD. Status post transfusion of 1 unit of PRBC 02/12, hemoglobin improved, hemoglobin 8.5 today.
Unspecified Arrhythmia
In sinus rhythm
-On metoprolol and diltiazem at home, both discontinued
- Started on carvedilol
Essential Hypertension
-Continue metoprolol
-Off of losartan in anticipation of CABG
Hyperlipidemia
-Continue atorvastatin
Bronchiectasis -no flare
-Continue azithromycin
GERD
-Continue Pepcid
DVT proph: SCDs
Code Status: Full Code
Anticipated Discharge: > 48 hours
Subjective/Interval History
-
Date of Service: February 15, 2025
Patient was seen and examined at bedside this morning. Appears to be having episodes of delirium. Creatinine worsening today. To be evaluated by nephrology.
Objective Data
-
Labs:
Laboratory Results
02/15/25 02/15/25
05:12 14:36
WBC 5.6
Hgb 8.5 L
Hct 26.5 L
Plt Count 156
Sodium 131 L
Potassium 4.3
Chloride 95 L
Carbon Dioxide 29
BUN 39 H
Creatinine 2.1 H
Glucose 97
Calcium 8.3 L
Vital Signs:
Vital Signs
Temp Pulse Resp BP Pulse Ox
97.7 F 72 18 108/59 96
02/15/25 11:55 02/15/25 11:55 02/15/25 11:55 02/15/25 08:44 02/15/25 11:55
I&O
02/14/25 02/15/25 02/16/25
06:59 06:59 06:59
Intake Total 940 / 940
Output Total 1200 / 1200 550 / 550
Balance -260 / -260 -550 / -550
Review of Systems
-
History Source: Patient
All other systems: Reviewed and negative
Neuro: Reports Other (Confused)
Physical Exam
-
General: No Apparent Distress
[2025-02-15] MEDS: AMPICILLIN 104 MG IV (16:19)
[2025-02-15] MEDS: PROTONIX IV 40 MG IV (20:02)
[2025-02-15] MEDS: NSS (PRESERVATIVE FREE) 10 ML IV (20:02)
--- NOTE | 2025-02-15 23:00 | PTCARENOTE ---
report received from previous RN, walking rounds done. pt in bed, sleeping. VSS. SR on monitor, HR 70s. +peripheral pulses. B/L breath sounds present. POX 96% on 2LNC. PIV x2 intact and patent. see worklist for full assessment, VS, and
interventions.
--- NOTE | 2025-02-15 23:11 | PTCARENOTE ---
Received pt @ change of shift. AAOx3, VSS-- NSR w/ PVCs on monitor. Pt has not gone to the bathroom for +6 hours-- bladder scan per protocol. Scanned for 222mL. Pt was able to void shortly after. Bed alarm on bed for patient safety. Discussed plan
of care. Pt verbalizes understanding. Plan of care ongoing. Call conner within reach.
[2025-02-16] VITALS (10 sets, daily range): BP systolic 98–113; BP diastolic 53–64; PULSE 62–63; O2SAT 98; BMI 24.8
[2025-02-16] MEDS: AMPICILLIN 104 MG IV ×4 (00:31→23:02)
[2025-02-16] MEDS: STERILE WATER FOR INJECTION IV (03:00)
[2025-02-16] MEDS: TYLENOL 650 MG PO ×2 (03:00→16:27)
[2025-02-16 03:23] LABS: Hematocrit 26.5 % (39.0-52.0); Hemoglobin 8.5 g/dL (13.0-18.0); Mean Corp Hgb Conc. 32.1 g/dL (33.0-37.0); Mean Corpuscular Volume 79.6 fL (80.0-94.0); Platelet Count 149 10^3/uL (130-400); Red Cell Dist. Width 18.5 % (11.5-14.5)
[2025-02-16 03:47] LABS: Blood Urea Nitrogen 45 mg/dl (9-20); Calcium 8.3 mg/dl (8.4-10.2); Carbon Dioxide 29 mmol/L (22-30); Chloride 96 mmol/L (98-107); Estimated Creatinine Clearance 32 ml/min; Glucose 92 mg/dl (70-99); Potassium 4.1 mmol/L (3.5-5.1); Sodium 132 mmol/L (135-145); eGFR 31.82
[2025-02-16] MEDS: COREG 12.5 MG PO ×2 (09:31→20:19)
[2025-02-16] MEDS: LIPITOR 80 MG PO (09:31)
[2025-02-16] MEDS: PEPCID 10 MG PO (09:31)
[2025-02-16] MEDS: PLAVIX 75 MG PO (09:31)
[2025-02-16] MEDS: HYDROCORTISONE 1% CREAM 1 APPLIC TOPICAL ×2 (09:33→20:20)
[2025-02-16] MEDS: ASPIR LOW (ENTERIC COATED) 81 MG PO (09:34)
[2025-02-16] MEDS: CLARITIN 10 MG PO (09:34)
[2025-02-16] MEDS: PROTONIX IV 40 MG IV ×2 (09:34→20:20)
[2025-02-16] MEDS: NSS (PRESERVATIVE FREE) 10 ML IV ×2 (09:34→20:20)
--- NOTE | 2025-02-16 12:06 | W.PN.CARDCBS ---
Addendum entered and electronically signed by Mejia Santoyo MD 02/16/25 18:05:
I saw and examined the patient.
The Order Dispatcher's note was reviewed and I agree with the note.
Comment: Briefly, 79-year-old man who presented in acute decompensated heart failure and was found to have cardiomyopathy with moderately reduced LVEF. Coronary angiography identified multivessel CAD however he was not felt to be an operative
candidate. Tentative plan is for PCI pending improvement of his renal function.
No cardiac complaints today including no chest discomfort or dyspnea
Tells me his lower extremity edema is significantly improved with diuresis
Appears euvolemic on exam - appreciate nephrology input regarding diuretics and JUAN
Continue medical management of CAD with aspirin/Plavix, high intensity statin and beta-jenifer
Blood pressure is marginal and therefore he is unlikely to tolerate additional GDMT for his ischemic cardiomyopathy
Discussed with nursing
Original Note:
Today's Communication / Plan
-
follow Cr. hold nephrotoxic agents
tentatively for PCI early next week
follow hgb on asa, plavix
Impression / Plan
-
Primary Afterschool: Dr. Funk with [employer] of [facility] in [place], [place]
Impression:
Presented with SOB, LE edema
Acute HFrEF
Newly diagnosed ischemic cardiomyopathy EF 30 to 35%
Abnormal EKG with lateral ST-T wave changes
NSTEMI, peak trop 0.1
Mild to moderate mitral regurgitation
Moderate tricuspid regurgitation with severe pulmonary hypertension, PASP 62 mmHg
Microcytic anemia with gastric ulcer by EGD 02/12/25
h/o PVD with prior LE stents
Bronchiectasis
GERD
Past smoker quit 25 years ago
Daily alcohol, 2 drinks a day
Echo 02/08/2025: EF 30-35%, global hypokinesis, mild LVH, mild to moderate MR, moderate TR, estimated PAP 62 mmHg, severe pulmonary HTN
Right/left heart cath 02/10/2025: RA 9, PA 44/15, PCWP 10, CO/CI 4.8/2.29, LVEDP 22. LAD 80% ostial stenosis. Left circumflex with OM1 severe 80 to 90% proximal stenosis, 50% mid stenosis. RCA mid 90% stenosis then chronically totally occluded
Plan:
- Presented with worsening SOB, LE edema. Admitted with acute CHF. Also w/ chest discomfort at times w/ exertion.
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
- currently CP free. IV nitro placed on hold by me due to hypotension
- admission complicated by change in mental status, JUAN, and UTI
- being treated with abx
- Cr has peaked at 2.1, stable overnight. nephrotoxic agents remain on hold
- awaiting improvement in Cr prior to proceeding to ear mold laboratory technician. tentatively planning for Wednesday 02/21 but will reassess
- also had melena and underwent EGD with gastric ulcer with visible vessel, injected and treated with bipolar cauterization. on IV PPI. ok from GI standpoint to proceed with cath
- in SR on review of tele. continue asa. plavix resumed 02/14 as per GI recs. hgb stable at 8.5, follow
- Echo 02/08 with EF newly reduced at 30-35%. GDMT as able with coreg. losartan on hold at present
HPI: Patient is a 79-year-old male with past medical history of PVD, bronchiectasis, GERD who presented to [facility] ER due to worsening bilateral lower extremity edema, shortness of breath, chest tightness over the past 10 days. His
January 23 he states this was a stressor for him. Over the past 10 days he has noticed he has woken up typically in the morning with some chest discomfort and shortness of breath, typically pain will dissipate by around 10 AM. He also has had
worsening lower extremity edema which he states is unusual for him. He woke up this morning at 3 AM with the chest discomfort and shortness of breath and symptoms were more severe and persisted, prompting ER evaluation. Typically he resides in
[facility] and is visiting for the . He has been seen by drapery estimator in [place], and daughter is working on pulling up records. On arrival to the emergency room, proBNP elevated on arrival at 12,000. EKG with evidence of
lateral T wave abnormality with no prior to compare and troponin of 0.1. Cardiology consulted for evaluation. No present chest pain. Patient is chronically on aspirin and Plavix due to history of lower extremity stents. He denies any history of
coronary stenting, heart failure, cardiomyopathy, or valvular heart disease. He reports it was 'implied' that he had arrhythmia, but no clear history.
Progress Note - Afterschool
Subjective
Date of Service: February 16, 2025
denies CP, SOB. reports remains with some confusion overnight
Objective
Labs:
02/16/25 02:56
02/16/25 02:56
Labs
Hgb 8.5 g/dL (13.0-18.0) L 02/16/25 02:56
Hct 26.5 % (39.0-52.0) L 02/16/25 02:56
Plt Count 149 10^3/uL (130-400) 02/16/25 02:56
PT 14.5 Sec (11.4-14.6) 02/11/25 04:54
INR 1.11 02/11/25 04:54
APTT Cancelled 02/10/25 17:26
Sodium 132 mmol/L (135-145) L 02/16/25 02:56
Potassium 4.1 mmol/L (3.5-5.1) 02/16/25 02:56
BUN 45 mg/dl (9-20) H 02/16/25 02:56
Creatinine 2.1 mg/dL (0.7-1.3) H 02/16/25 02:56
Glucose 92 mg/dl (70-99) 02/16/25 02:56
Vital Signs and I&O:
Vital Signs
Temp Pulse Resp BP Pulse Ox
97.3 F 56 20 110/54 100
02/16/25 11:35 02/16/25 12:00 02/16/25 11:35 02/16/25 11:32 02/16/25 11:35
Vital Signs
Temp Pulse Resp BP Pulse Ox
97.3 F 56 20 110/54 100
02/16/25 11:35 02/16/25 12:00 02/16/25 11:35 02/16/25 11:32 02/16/25 11:35
Intake & Output
02/14/25 02/15/25 02/16/25 02/17/25
07:59 07:59 07:59 07:59
Intake Total 940 / 940
Output Total 1200 / 1200 550 / 550 200 / 200 200 / 200
Balance -260 / -260 -550 / -550 -200 / -200 -200 / -200
Physical Exam
Physical Exam
GEN: No distress, awake, alert, oriented to self, place. sitting in chair
HEENT: supple, anicteric, mmm, eomi
LUNGS: CTA B/L, no wheezes/rales
CV: Reg, S1/S2, no murmur
ABD: soft, BS+, NT/ND
EXT: No cyanosis, clubbing, edema
NEURO: Gross non-focal
SKIN: Warm, pink, dry. No rash
--- NOTE | 2025-02-16 13:36 | W.PN.NEPH.PH ---
Today's Communication / Plan
-
follow BMP
Assessment/Plan
-
Assessment
JUAN
Hyponatremia
Coronary artery disease
Heart failure reduced ejection fraction 30% non-ST elevation SC
Moderate TR, severe pulmonary hypertension
Anemia
gastric ulcer
Peripheral artery disease with lower extremity stent
bronchiectasis
Plan
Holding Lasix
Check urine studies
Cath on hold given worsening renal function
follow BMP
hope to see recovery now that BP improved
-
-
Date of Service: February 16, 2025
CC / HPI / ROS
-
Chief Complaint:
JUAN
History of Present Illness:
JUAN/Cr stable 2.1
Na low 132
abx for UTI
Review of Systems:
no CP/SOB
family noticed he is still slightly confused
Labs
-
Labs:
WBC 4.9 10^3/uL (4.8-10.8) 02/16/25 02:56
RBC 3.33 10^6/uL (4.70-6.10) L 02/16/25 02:56
Hgb 8.5 g/dL (13.0-18.0) L 02/16/25 02:56
Hct 26.5 % (39.0-52.0) L 02/16/25 02:56
Plt Count 149 10^3/uL (130-400) 02/16/25 02:56
Sodium 132 mmol/L (135-145) L 02/16/25 02:56
Potassium 4.1 mmol/L (3.5-5.1) 02/16/25 02:56
Chloride 96 mmol/L (98-107) L 02/16/25 02:56
Carbon Dioxide 29 mmol/L (22-30) 02/16/25 02:56
BUN 45 mg/dl (9-20) H 02/16/25 02:56
Creatinine 2.1 mg/dL (0.7-1.3) H 02/16/25 02:56
eGFR 31.82 02/16/25 02:56
Glucose 92 mg/dl (70-99) 02/16/25 02:56
Calcium 8.3 mg/dl (8.4-10.2) L 02/16/25 02:56
Ula-X-Igdyurjcdrw Pept 15859 pg/ml 02/08/25 15:30
Albumin 3.3 g/dl (3.5-5.0) L 02/11/25 04:54
Physical Exam
-
Vital Signs:
Vital Signs
Temp Pulse Resp BP Pulse Ox
97.3 F 56 20 110/54 100
02/16/25 11:35 02/16/25 12:00 02/16/25 11:35 02/16/25 11:32 02/16/25 11:35
Cardiovascular:: Regular rate and rhythm
Respiratory:: Bilateral: Coarse
Lung Excursion:: Normal
Abdomen:: Nontender and Soft
Bowel Sounds:: Normal
Extremity Edema:: None: Bilateral:
--- NOTE | 2025-02-16 13:47 | W.PN.HOSP.TC ---
Today's Communication/Plan
-
Assessment / Plan
Assessment / Plan
General: No Apparent Distress, Comfortable and Conversant
HEENT: NormoCephalic, Moist mucous membranes, Atraumatic
Respiratory: Clear and Non Labored Respirations
Cardiac: S1/S2 and Regular Rhythm; No Rub or Gallop
GI: Soft, Non Tender, Non Distended and Normal Bowel Sounds
Musculoskeletal: No Edema, no deformity
: NO Norman
Neuro: Awake, Alert, Nonfocal/grossly intact
Psych: Calm and cooperative
Acute Heart Failure with Reduced EF
- New diagnosis, suspect ischemic etiology
- Echo showing LVEF 30 to 35% with global hypokinesis
- Cardiac cath showed near normal to mildly elevated right and left sided filling pressures. Normal CO
- Currently holding diuresis due to worsening renal function
- Weight down since admission, likely at his dry weight currently
- Beta-jenifer now with carvedilol, home metoprolol tartrate discontinued
Elevated Troponin, clinical concern for ischemia with inverted T waves in lateral leads
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
- Now current plan is tentatively for two-vessel PCI pending improvement in renal function, hopefully early next week 02/21
- Off of heparin drip, okay with GI to restart Plavix
Altered mental status:
- Patient reports intermittent confusion and sometimes reports he does not know where he is
- Suspect multifactorial including due to UTI and hospital delirium
- CT brain shows no acute intracranial abnormalities
- Confusion possibly due to antibiotics for UTI, have switched to treatment with ampicillin instead of ceftriaxone
UTI:
- Has had intermittent episodes of confusion
- Urinalysis with pyuria and bacteriuria, culture growing Enterococcus
- Started empirically on ceftriaxone, however now changed to treatment with ampicillin for treatment of Enterococcus pending specific sensitivities
JUAN:
- Kidney function stabilized today but not improved, creatinine 2.1 again
- Baseline creatinine appears to be around 1.2
- Likely secondary to diuresis
- Continuing to hold Lasix dose today
- Nephrology following, urine studies pending
- Monitor
Iron-Deficiency Anemia
Heme positive stools
Gastric ulcers
-Patient reports he did have a colonoscopy earlier this year and had a precancerous polyp removed. He was scheduled for repeat colonoscopy in December which he cancelled due to his 's illness
- Started IV iron as patient has concurrent heart failure
- Status post endoscopy 02/12 which showed nonobstructing nonbleeding gastric ulcer with a visible vessel which was injected.
- Transitioned to PPI IV twice daily 02/15, tolerating diet
- Restarted Plavix
- Hemoglobin trending slowly downward, will monitor
Severe anemia suspected secondary to acute blood loss
Slow drop in H&H noted-hemoglobin 8.6 and patient currently having angina and has a multivessel CAD. Status post transfusion of 1 unit of PRBC 02/12, hemoglobin improved, hemoglobin 8.5 today.
Unspecified Arrhythmia
In sinus rhythm
-On metoprolol and diltiazem at home, both discontinued
- Started on carvedilol
Essential Hypertension
-Continue metoprolol
-Off of losartan in anticipation of CABG
Hyperlipidemia
-Continue atorvastatin
Bronchiectasis -no flare
-Continue azithromycin
GERD
-Continue Pepcid
DVT proph: SCDs
Code Status: Full Code
Anticipated Discharge: > 48 hours
Subjective/Interval History
-
Date of Service: February 16, 2025
Patient was seen and examined at bedside this morning. Comfortable, no acute events overnight. PCI postponed until next week pending improvement in renal function.
Objective Data
-
Labs:
Laboratory Results
02/16/25
02:56
WBC 4.9
Hgb 8.5 L
Hct 26.5 L
Plt Count 149
Sodium 132 L
Potassium 4.1
Chloride 96 L
Carbon Dioxide 29
BUN 45 H
Creatinine 2.1 H
Glucose 92
Calcium 8.3 L
Vital Signs:
Vital Signs
Temp Pulse Resp BP Pulse Ox
97.3 F 56 20 110/54 100
02/16/25 11:35 02/16/25 12:00 02/16/25 11:35 02/16/25 11:32 02/16/25 11:35
I&O
02/15/25 02/16/25 02/17/25
06:59 06:59 06:59
Output Total 550 / 550 200 / 200 200 / 200
Balance -550 / -550 -200 / -200 -200 / -200
Review of Systems
-
History Source: Patient
All other systems: Reviewed and negative
Neuro: Reports Other (Intermittent confusion)
Physical Exam
-
General: No Apparent Distress
--- NOTE | 2025-02-16 14:06 | CM ---
Reviewed chart. Met with Mr. Kimball to review discharge plans. He states he is feeling better and he is waiting to see if they can do the procedure. Prior to admission he resides alone in a second floor apartment with an elevator access.
Prior to admission he was independent with ambulation and adls. He has a leg compression machine at home to use three a day to assist with circulation. He is currently not using it because it broke. They sent him a new part. He gets his
medications from the [facility] via mail order. He will stay with his daughter in [place] for a few days before returning to his apartment. His daughter resides in a two story home. He would only need to go upstairs to shower. Will need to see his
current functional level to see if he will have any skilled care needs. Medical work-up in progress. The discharge plan is to return home with his daughter and V[facility] services verses SNF/Rehab. if indicated.
[2025-02-16 15:24] LABS: Urine Character Clear (Clear)
[2025-02-16 16:14] LABS: Urine Red Blood Cell 0-2 /HPF (0-2); Urine Squamous Cell >30 /LPF (Few); Urine White Cell 0-2 /HPF (0-5)
--- NOTE | 2025-02-16 19:27 | PTCARENOTE ---
Pt oriented X 3 but making remarks like 'this isn't my room, these aren't my things'. Pt reoriented, encouraged to eat, bathed and shaved, taken for a wheelchair ride in the halls and watched movies. Pt also visited by his dtr. which all helped to
improve his demeanor. Pt c/o chronic left sided back pain which improved with repositioning and tylenol. Pt remains a fall risk on all precautions with bed and chair alarms. Pt states better understanding of plan of care for PCI when his kidney
function improves. Pt also with firm red area in old LAC IV site, moist heat applied. Telemetry shows sinus ken @47-60's.
[2025-02-17] VITALS (9 sets, daily range): BP systolic 99–123; BP diastolic 47–61; PULSE 60; O2SAT 98–99; BMI 25.2
--- NOTE | 2025-02-17 01:52 | PTCARENOTE ---
Pt. pleasant and able to engage in completely oriented conversation this shift. VSS; SB-SR on the monitor. No complaints of chest pain/discomfort, able to ambulate with assist x 1 & RW. Fall precautions maintained, bed alarm on.
[2025-02-17] MEDS: STERILE WATER FOR INJECTION IV ×2 (02:04→23:04)
[2025-02-17] MEDS: TYLENOL 650 MG PO ×2 (02:33→20:40)
[2025-02-17 03:11] LABS: Hematocrit 28.9 % (39.0-52.0); Hemoglobin 9.2 g/dL (13.0-18.0); Mean Corp Hgb Conc. 31.8 g/dL (33.0-37.0); Mean Corpuscular Volume 79.2 fL (80.0-94.0); Platelet Count 166 10^3/uL (130-400); Red Cell Dist. Width 18.6 % (11.5-14.5)
[2025-02-17 03:27] LABS: Blood Urea Nitrogen 49 mg/dl (9-20); Calcium 8.5 mg/dl (8.4-10.2); Carbon Dioxide 31 mmol/L (22-30); Chloride 95 mmol/L (98-107); Estimated Creatinine Clearance 38 ml/min; Glucose 93 mg/dl (70-99); Potassium 3.9 mmol/L (3.5-5.1); Sodium 131 mmol/L (135-145); eGFR 38.29
[2025-02-17] MEDS: AMPICILLIN 104 MG IV ×3 (08:52→23:04)
[2025-02-17] MEDS: NSS (PRESERVATIVE FREE) 10 ML IV ×2 (08:57→20:24)
[2025-02-17] MEDS: PROTONIX IV 40 MG IV ×2 (08:57→20:23)
[2025-02-17] MEDS: LIPITOR 80 MG PO (09:05)
[2025-02-17] MEDS: HYDROCORTISONE 1% CREAM 1 APPLIC TOPICAL ×2 (09:05→20:24)
[2025-02-17] MEDS: CLARITIN 10 MG PO (09:06)
[2025-02-17] MEDS: ASPIR LOW (ENTERIC COATED) 81 MG PO (09:06)
[2025-02-17] MEDS: PLAVIX 75 MG PO (09:06)
[2025-02-17] MEDS: COREG 12.5 MG PO ×2 (09:06→20:23)
[2025-02-17] MEDS: PEPCID 10 MG PO (09:08)
[2025-02-17] MEDS: ZITHROMAX 250 MG PO (09:14)
--- NOTE | 2025-02-17 12:55 | W.PN.CARDCBS ---
Addendum entered and electronically signed by Allie Castaneda DO 02/18/25 06:45:
I saw and examined the patient 02/17/25
The Alarm Service Technician's note was reviewed and I agree with the note.
Comment: Late entry. Patient was seen and examined with his daughter at bedside. Offers no new complaints. Denies chest pain
GEN: No distress, awake, alert, oriented x3
HEENT: mmm
LUNGS: CTA B/L, no wheezes/rales
CV: Reg, S1/S2, no murmur
ABD: soft, BS+, NT/ND
EXT: No edema
Plan:
79-year-old man who presented in acute decompensated heart failure and was found to have cardiomyopathy with moderately reduced LVEF. Coronary angiography identified multivessel CAD however he was not felt to be an operative candidate. Tentative
plan is for PCI pending improvement of his renal function.
No cardiac complaints today including no chest discomfort or dyspnea
Appears euvolemic on exam - appreciate nephrology input regarding diuretics and JUAN
Creatinine is improving
Continue medical management of CAD with aspirin/Plavix, high intensity statin and beta-jenifer
Blood pressure is marginal and therefore he is unlikely to tolerate additional GDMT for his ischemic cardiomyopathy
Tentatively plan for left heart catheterization 02/21/2025
Original Note:
Today's Communication / Plan
-
Follow creatinine, downtrending
Continue aspirin, Plavix
Tentatively planned for cath 02/21 as inpatient
Impression / Plan
-
Primary Painter Foreman: Dr. Funk with [employer] [facility] in [place], [place]
Impression:
Presented with SOB, LE edema
Acute HFrEF
Newly diagnosed ischemic cardiomyopathy EF 30 to 35%
Abnormal EKG with lateral ST-T wave changes
NSTEMI, peak trop 0.1
Mild to moderate mitral regurgitation
Moderate tricuspid regurgitation with severe pulmonary hypertension, PASP 62 mmHg
Microcytic anemia with gastric ulcer by EGD 02/12/25
h/o PVD with prior LE stents
Bronchiectasis
GERD
Past smoker quit 25 years ago
Daily alcohol, 2 drinks a day
Echo 02/08/2025: EF 30-35%, global hypokinesis, mild LVH, mild to moderate MR, moderate TR, estimated PAP 62 mmHg, severe pulmonary HTN
Right/left heart cath 02/10/2025: RA 9, PA 44/15, PCWP 10, CO/CI 4.8/2.29, LVEDP 22. LAD 80% ostial stenosis. Left circumflex with OM1 severe 80 to 90% proximal stenosis, 50% mid stenosis. RCA mid 90% stenosis then chronically totally occluded
Plan:
- Presented with worsening SOB, LE edema. Admitted with acute CHF. Also w/ chest discomfort at times w/ exertion.
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
- currently CP free. IV nitro placed on hold by me due to hypotension
- admission complicated by change in mental status, JUAN, and UTI
- being treated with abx
- Cr has peaked at 2.1, down to 1.8 on 02/17, trend. nephrotoxic agents remain on hold. volume status appears stable
- awaiting improvement in Cr prior to proceeding to chemical laboratory technician prior to DC. tentatively planning for Wednesday 02/21 but will reassess
- also had melena and underwent EGD with gastric ulcer with visible vessel, injected and treated with bipolar cauterization. on IV PPI. ok from GI standpoint to proceed with cath
- in SR on review of tele. continue asa. plavix resumed 02/14 as per GI recs. hgb 9.2 on 02/17, follow
- Echo 02/08 with EF newly reduced at 30-35%. GDMT as able with coreg. losartan on hold at present
HPI: Patient is a 79-year-old male with past medical history of PVD, bronchiectasis, GERD who presented to [facility] ER due to worsening bilateral lower extremity edema, shortness of breath, chest tightness over the past 10 days. His
January 23 he states this was a stressor for him. Over the past 10 days he has noticed he has woken up typically in the morning with some chest discomfort and shortness of breath, typically pain will dissipate by around 10 AM. He also has had
worsening lower extremity edema which he states is unusual for him. He woke up this morning at 3 AM with the chest discomfort and shortness of breath and symptoms were more severe and persisted, prompting ER evaluation. Typically he resides in
[facility] and is visiting for the . He has been seen by spinning machine tender in [place], and daughter is working on pulling up records. On arrival to the emergency room, proBNP elevated on arrival at 12,000. EKG with evidence of
lateral T wave abnormality with no prior to compare and troponin of 0.1. Cardiology consulted for evaluation. No present chest pain. Patient is chronically on aspirin and Plavix due to history of lower extremity stents. He denies any history of
coronary stenting, heart failure, cardiomyopathy, or valvular heart disease. He reports it was 'implied' that he had arrhythmia, but no clear history.
Progress Note - Painter Foreman
Subjective
Date of Service: February 17, 2025
No complaints overnight. No confusion, chest pain, shortness of breath
Objective
Labs:
02/17/25 02:51
02/17/25 02:51
Labs
Hgb 9.2 g/dL (13.0-18.0) L 02/17/25 02:51
Hct 28.9 % (39.0-52.0) L 02/17/25 02:51
Plt Count 166 10^3/uL (130-400) 02/17/25 02:51
PT 14.5 Sec (11.4-14.6) 02/11/25 04:54
INR 1.11 02/11/25 04:54
APTT Cancelled 02/10/25 17:26
Sodium 131 mmol/L (135-145) L 02/17/25 02:51
Potassium 3.9 mmol/L (3.5-5.1) 02/17/25 02:51
BUN 49 mg/dl (9-20) H 02/17/25 02:51
Creatinine 1.8 mg/dL (0.7-1.3) H 02/17/25 02:51
Glucose 93 mg/dl (70-99) 02/17/25 02:51
Vital Signs and I&O:
Vital Signs
Temp Pulse Resp BP Pulse Ox
98.2 F 67 18 110/56 92
02/17/25 12:29 02/17/25 12:00 02/17/25 12:29 02/17/25 11:44 02/17/25 12:29
Vital Signs
Temp Pulse Resp BP Pulse Ox
98.2 F 67 18 110/56 92
02/17/25 12:29 02/17/25 12:00 02/17/25 12:29 02/17/25 11:44 02/17/25 12:29
Intake & Output
02/15/25 02/16/25 02/17/25 02/18/25
07:59 07:59 07:59 07:59
Intake Total 610 / 610 180 / 180
Output Total 550 / 550 200 / 200 900 / 900 500 / 500
Balance -550 / -550 -200 / -200 -290 / -290 -320 / -320
Physical Exam
Physical Exam
GEN: No distress, awake, alert, oriented x3
HEENT: supple, anicteric, mmm, eomi
LUNGS: CTA B/L, no wheezes/rales
CV: Reg, S1/S2, no murmur
ABD: soft, BS+, NT/ND
EXT: No cyanosis, clubbing, edema
NEURO: Gross non-focal
SKIN: Warm, pink, dry. No rash
--- NOTE | 2025-02-17 14:37 | W.PN.NEPH.PH ---
Today's Communication / Plan
-
lasix, follow labs
Assessment/Plan
-
Assessment
JUAN
Hyponatremia
Coronary artery disease
Heart failure reduced ejection fraction 30% non-ST elevation SC
Moderate TR, severe pulmonary hypertension
Anemia
gastric ulcer
Peripheral artery disease with lower extremity stent
bronchiectasis
Plan
cr improving to 1.8 and non oliguric
bland UA and U na low 6 suggest [place], CRS
Cath on hold till renal function return baseline
wt is up and back on O2 today-will give lasix
mild hyponatremia-monitor with FR
follow BMP
-
-
Date of Service: February 17, 2025
CC / HPI / ROS
-
Chief Complaint:
JUAN
History of Present Illness:
JUAN/Cr better at 1.8
Na low 131
abx for UTI
Review of Systems:
no CP/SOB at rest
per staff was confused,
Labs
-
Labs:
WBC 4.3 10^3/uL (4.8-10.8) L 02/17/25 02:51
RBC 3.65 10^6/uL (4.70-6.10) L 02/17/25 02:51
Hgb 9.2 g/dL (13.0-18.0) L 02/17/25 02:51
Hct 28.9 % (39.0-52.0) L 02/17/25 02:51
Plt Count 166 10^3/uL (130-400) 02/17/25 02:51
Sodium 131 mmol/L (135-145) L 02/17/25 02:51
Potassium 3.9 mmol/L (3.5-5.1) 02/17/25 02:51
Chloride 95 mmol/L (98-107) L 02/17/25 02:51
Carbon Dioxide 31 mmol/L (22-30) H 02/17/25 02:51
BUN 49 mg/dl (9-20) H 02/17/25 02:51
Creatinine 1.8 mg/dL (0.7-1.3) H 02/17/25 02:51
eGFR 38.29 02/17/25 02:51
Glucose 93 mg/dl (70-99) 02/17/25 02:51
Calcium 8.5 mg/dl (8.4-10.2) 02/17/25 02:51
Qvb-B-Vtxjarslywc Pept 62364 pg/ml 02/08/25 15:30
Albumin 3.3 g/dl (3.5-5.0) L 02/11/25 04:54
Physical Exam
-
Vital Signs:
Vital Signs
Temp Pulse Resp BP Pulse Ox
98.2 F 67 18 110/56 92
02/17/25 12:29 02/17/25 12:00 02/17/25 12:29 02/17/25 11:44 02/17/25 12:29
Cardiovascular:: Regular rate and rhythm
Respiratory:: Bilateral: Coarse
Lung Excursion:: Normal
Abdomen:: Nontender and Soft
Bowel Sounds:: Normal
Extremity Edema:: None: Bilateral:
Norman Catheter: No
--- NOTE | 2025-02-17 15:01 | W.PN.HOSP.TC ---
Today's Communication/Plan
-
Assessment / Plan
Assessment / Plan
General: No Apparent Distress, Comfortable and Conversant
HEENT: NormoCephalic, Moist mucous membranes, Atraumatic
Respiratory: Clear and Non Labored Respirations
Cardiac: S1/S2 and Regular Rhythm; No Rub or Gallop
GI: Soft, Non Tender, Non Distended and Normal Bowel Sounds
Musculoskeletal: No Edema, no deformity, erythema and induration right antecubital fossa at site of prior IV
: NO Norman
Neuro: Awake, Alert, Nonfocal/grossly intact
Psych: Calm and cooperative
Acute Heart Failure with Reduced EF
- New diagnosis, suspect ischemic etiology
- Echo showing LVEF 30 to 35% with global hypokinesis
- Cardiac cath showed multivessel CAD, near normal to mildly elevated right and left sided filling pressures, normal CO
- Have been holding Lasix due to JUAN which is improving, gave 1 dose of IV Lasix today, will monitor response
- Continuing to hold losartan due to JUAN which is improving
- Weight down since admission 97.5 kg => 84.1 kg, likely at his dry weight currently
- Beta-jenifer now with carvedilol, home metoprolol tartrate discontinued
Elevated Troponin, clinical concern for ischemia with inverted T waves in lateral leads
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
- Now current plan is tentatively for two-vessel PCI pending improvement in renal function, hopefully early next week 02/21
- Off of heparin drip, restarted Plavix
Superficial thrombophlebitis:
- Occlusive thrombus in the right median and cephalic vein, likely secondary to prior peripheral IV patient accidentally pulled out
- Continue supportive care with warm compress and elevation
- No indication for anticoagulation, patient is already on DAPT for CAD
Altered mental status:
- Resolved
- Suspect multifactorial including due to UTI and hospital delirium
- CT brain shows no acute intracranial abnormalities
- Confusion possibly due to prior antibiotic for UTI, have switched to treatment with ampicillin instead of ceftriaxone
UTI:
- Urinalysis with pyuria and bacteriuria, culture growing Enterococcus sensitive to ampicillin
- Continue treatment with ampicillin to complete 7-day course (02/21)
JUAN:
- Kidney function beginning to improve, creatinine 1.8 on labs today
- Baseline creatinine appears to be around 1.2
- Likely secondary to diuresis
- Tentatively restarting diuresis, give 1 dose of IV Lasix today, will monitor response
- Nephrology following, urine studies pending
- Holding losartan
- Monitor
Hyponatremia:
- Mild, serum sodium 131 today
- Fluid restriction
- Gave 1 dose of IV Lasix today, Will monitor
Iron-Deficiency Anemia
Heme positive stools
Gastric ulcers
-Patient reports he did have a colonoscopy earlier this year and had a precancerous polyp removed. He was scheduled for repeat colonoscopy in December which he cancelled due to his 's illness
- Started IV iron as patient has concurrent heart failure
- Status post endoscopy 02/12 which showed nonobstructing nonbleeding gastric ulcer with a visible vessel which was injected.
- Transitioned to PPI IV twice daily 02/15, tolerating diet
- Restarted Plavix
- Hemoglobin stable around 9.0, will monitor
Severe anemia suspected secondary to acute blood loss
Slow drop in H&H noted-hemoglobin 8.6 and patient currently having angina and has a multivessel CAD. Status post transfusion of 1 unit of PRBC 02/12, hemoglobin improved, hemoglobin 9.2 today.
Unspecified Arrhythmia
In sinus rhythm
-On metoprolol and diltiazem at home, both discontinued
- Started on carvedilol
Essential Hypertension
-Continue metoprolol
-Off of losartan in anticipation of CABG
Hyperlipidemia
-Continue atorvastatin
Bronchiectasis -no flare
-Continue azithromycin
GERD
-Continue Pepcid
DVT proph: SCDs
Code Status: Full Code
Anticipated Discharge: > 48 hours
Subjective/Interval History
-
Date of Service: February 17, 2025
Patient was seen and examined at bedside. Kidney function improving. Hemoglobin remained stable. Is experiencing pain, redness, and swelling in the right antecubital fossa at the site of a prior IV.
Objective Data
-
Labs:
Laboratory Results
02/17/25
02:51
WBC 4.3 L
Hgb 9.2 L
Hct 28.9 L
Plt Count 166
Sodium 131 L
Potassium 3.9
Chloride 95 L
Carbon Dioxide 31 H
BUN 49 H
Creatinine 1.8 H
Glucose 93
Calcium 8.5
Vital Signs:
Vital Signs
Temp Pulse Resp BP Pulse Ox
98.2 F 67 18 110/56 92
02/17/25 12:29 02/17/25 12:00 02/17/25 12:29 02/17/25 11:44 02/17/25 12:29
I&O
02/16/25 02/17/25 02/18/25
06:59 06:59 06:59
Intake Total 610 / 610 180 / 180
Output Total 200 / 200 900 / 900 500 / 500
Balance -200 / -200 -290 / -290 -320 / -320
Review of Systems
-
History Source: Patient
All other systems: Reviewed and negative
Physical Exam
-
General: No Apparent Distress
--- NOTE | 2025-02-17 15:08 | CM ---
Reviewed chart. Met with daughter, Arabella to review discharge plans. Reviewed with the the possibility he may need SNF/Rehab. pending on his progress. Reviewed SNF in the are. She would like to explore [facility]. Telephone call to [facility]
Admission to make the referral. Sent referral. He will need pre-cert with his insurance for SNF/Rehab. Reviewed chart Prior to admission he resides alone in a second floor apartment with an elevator access. Prior to admission he was independent
with ambulation and adls. He has a leg compression machine at home to use three a day to assist with circulation. He is currently not using it because it broke. They sent him a new part. He gets his medications from the [facility] via mail order. He
will stay with his daughter in [place] for a few days before returning to his apartment. His daughter resides in a two story home. He would only need to go upstairs to shower. Will need to see his current functional level to see if he will have
any skilled care needs. Medical work-up in progress. The discharge plan is to return home with his daughter and [facility] services verses SNF/Rehab. if indicated.
[2025-02-17] MEDS: LASIX 20 MG IV (15:23)
--- NOTE | 2025-02-17 19:12 | PTCARENOTE ---
Pt OOB to chair all day, walking in his room with walker and one assist. Pt reports tenderness in right antecubital area which is red and firm. Peripheral U/S done showing superficial occlusive thrombus, plan to continue moist heat compresses per
Dr.Thomas Schmidt. Attempting to wean off oxygen, pt on room air when sitting up, needs oxygen when lying down with sats in 80's. Pt passed very small black hard stool tonight (first since big black stool on 02/10), heme positive. Telemetry shows sinus
ken at a rate @48-60's.
[2025-02-18] VITALS (7 sets, daily range): BP systolic 91–119; BP diastolic 46–60; BMI 25.2
[2025-02-18 04:45] LABS: Hematocrit 27.9 % (39.0-52.0); Hemoglobin 8.9 g/dL (13.0-18.0); Mean Corp Hgb Conc. 31.9 g/dL (33.0-37.0); Mean Corpuscular Volume 78.6 fL (80.0-94.0); Platelet Count 162 10^3/uL (130-400); Red Cell Dist. Width 18.4 % (11.5-14.5)
[2025-02-18 05:16] LABS: Blood Urea Nitrogen 45 mg/dl (9-20); Calcium 8.0 mg/dl (8.4-10.2); Carbon Dioxide 30 mmol/L (22-30); Chloride 100 mmol/L (98-107); Estimated Creatinine Clearance 45 ml/min; Glucose 91 mg/dl (70-99); Potassium 3.7 mmol/L (3.5-5.1); Sodium 134 mmol/L (135-145); eGFR 47.65
--- NOTE | 2025-02-18 05:35 | PTCARENOTE ---
Pt. sinus ken on the monitor this shift, mostly 40's-50's post Coreg, does dip into the 30's with sleep. Other vitals stable. Completely oriented. OOB with minimal assist x 1 & RW to use bathroom. Voiding moo urine; no BM's this shift.
Right arm thrombus site less painful per pt. and noticeably less firm, warm compresses applied.
[2025-02-18] MEDS: AMPICILLIN 104 MG IV ×3 (09:07→23:16)
[2025-02-18] MEDS: ASPIR LOW (ENTERIC COATED) 81 MG PO (09:07)
[2025-02-18] MEDS: COREG 12.5 MG PO (09:08)
[2025-02-18] MEDS: KCL 40 MEQ PO (09:08)
[2025-02-18] MEDS: CLARITIN 10 MG PO (09:08)
[2025-02-18] MEDS: NSS (PRESERVATIVE FREE) 10 ML IV ×2 (09:08→20:07)
[2025-02-18] MEDS: LIPITOR 80 MG PO (09:08)
[2025-02-18] MEDS: PROTONIX IV 40 MG IV ×2 (09:09→20:07)
[2025-02-18] MEDS: PLAVIX 75 MG PO (09:09)
[2025-02-18] MEDS: PEPCID 10 MG PO (09:09)
[2025-02-18] MEDS: HYDROCORTISONE 1% CREAM 1 APPLIC TOPICAL ×2 (09:09→20:06)
[2025-02-18] MEDS: FLUSH (NSS) 3 FLUSH IV (09:10)
--- NOTE | 2025-02-18 09:44 | W.PN.CARDCBS ---
Addendum entered and electronically signed by Danny Gilbert MD 02/18/25 13:50:
79-year-old man admitted February 08 with acute HFrEF, EF 30-35% and chest discomfort, and catheterization had a 80% ostial LAD, OM1 with 80 to 90% proximal stenosis, 90% mid RCA stenosis, occluded distally. Patient turndown for CABG related to
porcelain aorta, tentatively planned for PCI on February 21 pending resolution of JUAN with peak creatinine of 2.1, now 1.5.
PMH: PAD, bronchiectasis, GERD
Current medications: Aspirin 81 mg daily, Zithromax 3 days a week, atorvastatin 80 mg a day, Claritin, Pepcid, carvedilol 12.5 twice daily, furosemide 20 mg a day on hold, clopidogrel 75 mg a day, pantoprazole 40 mg IV twice daily, potassium 40 mill
equivalents twice daily, currently not on hold
119/58, pulse 58, respiratory rate 18, weight is 84.3 kg no distress, lungs are clear, regular rate and rhythm, no obvious murmurs, JVD okay, not much edema, abdomen benign
Hemoglobin 8.9, BUN 45, creatinine 1.5, potassium is 3.7
Impression:
Acute HFrEF, proBNP 12,000
Newly diagnosed ischemic cardiomyopathy EF 30 to 35%
NSTEMI, peak trop 0.1
Multivessel coronary artery disease on catheterization 02/10/2025
Mild to moderate mitral regurgitation
Moderate tricuspid regurgitation with severe pulmonary hypertension, PASP 62 mmHg
Microcytic anemia with gastric ulcer by EGD 02/12/25
h/o PVD with prior LE stents
Bronchiectasis
GERD
Past smoker quit 25 years ago
Daily alcohol, 2 drinks a day
Plan:
Despite all issues detailed above, along with LV dysfunction and severe three-vessel disease he appears stable.
No evidence at present of heart failure.
EKG obtained earlier today is improved with persistent lateral ST depression
JUAN is improving, creatinine has dropped to 1.5.
Will continue current regimen. Tentative plan for PCI on Thursday is still on track.
We will continue to monitor.
Original Note:
Today's Communication / Plan
-
Continue advancing GDMT as BP and renal function allows
replete K+
Continue aspirin and Plavix.
Plan for PCI 02/21/2025
Impression / Plan
-
Primary Varnish Melter: Dr. Funk with [facility] in [place], [place]
Impression:
Presented 02/08/2025 with SOB, LE edema
Acute HFrEF, proBNP 12,000
Newly diagnosed ischemic cardiomyopathy EF 30 to 35%
Abnormal EKG with lateral ST-T wave changes
NSTEMI, peak trop 0.1
Multivessel coronary artery disease on catheterization 02/10/2025
Mild to moderate mitral regurgitation
Moderate tricuspid regurgitation with severe pulmonary hypertension, PASP 62 mmHg
Microcytic anemia with gastric ulcer by EGD 02/12/25
h/o PVD with prior LE stents
Bronchiectasis
GERD
Past smoker quit 25 years ago
Daily alcohol, 2 drinks a day
Echo 02/08/2025: EF 30-35%, global hypokinesis, mild LVH, mild to moderate MR, moderate TR, estimated PAP 62 mmHg, severe pulmonary HTN
Right/left heart cath 02/10/2025: RA 9, PA 44/15, PCWP 10, CO/CI 4.8/2.29, LVEDP 22. LAD 80% ostial stenosis. Left circumflex with OM1 severe 80 to 90% proximal stenosis, 50% mid stenosis. RCA mid 90% stenosis then chronically totally occluded
Plan:
- Presented 02/08/2025 with worsening SOB, LE edema. Admitted with acute CHF, proBNP 12,000. Also w/ chest discomfort at times w/ exertion.
Ischemic cardiomyopathy secondary to NSTEMI
- Peak troponin 0.1
- New cardiomyopathy presumably ischemic on echocardiogram with EF of 30 to 35%.
-Diuretic had been placed on hold secondary to JUAN. Patient did get 1 dose of IV Lasix 20 mg 02/17/2025 by nephrology. Volume status appears stable and weight down approximately 20 pounds since admission.
- Underwent cardiac catheterization 02/10 noted to have multivessel CAD. 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
this admission. Timing of PCI will depend on improvement renal function as patient also found to have JUAN. Tentatively 02/21
- in SR on review of tele. continue asa. Plavix resumed 02/14 as per GI recs. hgb 8.9 on 02/18, follow
- Previously had been on IV nitro which was discontinued due to hypotension. Remains chest pain-free.
- GDMT has been limited by ongoing hypotension. Continue aspirin/Plavix, high intensity statin and Coreg. Would avoid further uptitrating beta-jenifer secondary to bradycardia particularly at night. Heart rate stable in 50s and 60s during day.
- Currently not on KIEL/ARB/ARNI secondary to hypotension and JUAN. Improving. Could consider adding low-dose KIEL as JUAN continues to improve
- K 3.7. Ongoing repletion. Check BMP in a.m.
JUAN, being followed by nephrology
- Cr has peaked at 2.1, down to 1.5 on 02/18, trend.
- nephrotoxic agents remain on hold.
Anemia/upper GI bleed
- also had melena and underwent EGD with gastric ulcer with visible vessel, injected and treated with bipolar cauterization. on IV PPI.
-ok from GI standpoint to proceed with cath and PCI.
-Hemoglobin dropped to low of 8.5. Current hemoglobin 8.9 02/18/2025
- admission complicated by change in mental status, JUAN, and UTI. Being treated with abx
-RUE swelling and pain, RUE ultrasound 02/17/2025 w/ superficial thrombosis with occlusive thrombus in the cephalic vein and the median vein at the level of the antecubital fossa and proximal forearm.
HPI: Patient is a 79-year-old male with past medical history of PVD, bronchiectasis, GERD who presented to [facility] ER due to worsening bilateral lower extremity edema, shortness of breath, chest tightness over the past 10 days. His
January 23 he states this was a stressor for him. Over the past 10 days he has noticed he has woken up typically in the morning with some chest discomfort and shortness of breath, typically pain will dissipate by around 10 AM. He also has had
worsening lower extremity edema which he states is unusual for him. He woke up this morning at 3 AM with the chest discomfort and shortness of breath and symptoms were more severe and persisted, prompting ER evaluation. Typically he resides in
[facility] and is visiting for the . He has been seen by wind project manager in [place], and daughter is working on pulling up records. On arrival to the emergency room, proBNP elevated on arrival at 12,000. EKG with evidence of
lateral T wave abnormality with no prior to compare and troponin of 0.1. Cardiology consulted for evaluation. No present chest pain. Patient is chronically on aspirin and Plavix due to history of lower extremity stents. He denies any history of
coronary stenting, heart failure, cardiomyopathy, or valvular heart disease. He reports it was 'implied' that he had arrhythmia, but no clear history.
Progress Note - Varnish Melter
Subjective
Date of Service: February 18, 2025
Patient seen and examined. Patient overall reports he is feeling well. Currently denies chest pain, shortness of breath, edema, orthopnea or PND.
Objective
Labs:
02/18/25 04:15
02/18/25 04:15
Labs
Hgb 8.9 g/dL (13.0-18.0) L 02/18/25 04:15
Hct 27.9 % (39.0-52.0) L 02/18/25 04:15
Plt Count 162 10^3/uL (130-400) 02/18/25 04:15
PT 14.5 Sec (11.4-14.6) 02/11/25 04:54
INR 1.11 02/11/25 04:54
APTT Cancelled 02/10/25 17:26
Sodium 134 mmol/L (135-145) L 02/18/25 04:15
Potassium 3.7 mmol/L (3.5-5.1) 02/18/25 04:15
BUN 45 mg/dl (9-20) H 02/18/25 04:15
Creatinine 1.5 mg/dL (0.7-1.3) H 02/18/25 04:15
Glucose 91 mg/dl (70-99) 02/18/25 04:15
Vital Signs and I&O:
Vital Signs
Temp Pulse Resp BP Pulse Ox
97.7 F 58 18 119/58 98
02/18/25 08:37 02/18/25 09:00 02/18/25 08:37 02/18/25 08:34 02/18/25 08:37
Vital Signs
Temp Pulse Resp BP Pulse Ox
97.7 F 58 18 119/58 98
02/18/25 08:37 02/18/25 09:00 02/18/25 08:37 02/18/25 08:34 02/18/25 08:37
Intake & Output
02/16/25 02/17/25 02/18/25 02/19/25
06:59 06:59 06:59 06:59
Intake Total 610 / 610 420 / 420
Output Total 200 / 200 900 / 900 950 / 950
Balance -200 / -200 -290 / -290 -530 / -530
Physical Exam
Physical Exam
GEN: No distress, awake, Ox3
HEENT: supple, anicteric, mmm
LUNGS: CTA, no wheezes/rales
CV: Reg, S1/S2, 1/6 systolic murmur, no rub or gallop
ABD: soft, BS+, NT/ND
EXT: No edema, clubbing or cyanosis
NEURO: Gross non-focal
SKIN: No rash, warm, dry, pink
--- NOTE | 2025-02-18 10:30 | PTCARENOTE ---
Patient assisted to the bathroom this morning, he did not feel that he needed the rolling walker, gait steady. Sitting oob in the chair now, offers no complaints, using urinal for accurate I&O and compliant with fluid restriction. Call dalila in
reach, visiting with family now.
--- NOTE | 2025-02-18 12:35 | W.PN.NEPH.PH ---
Today's Communication / Plan
-
follow labs
Assessment/Plan
-
Assessment
JUAN
Hyponatremia
Coronary artery disease
Heart failure reduced ejection fraction 30% non-ST elevation AZ
Moderate TR, severe pulmonary hypertension
Anemia
gastric ulcer
Peripheral artery disease with lower extremity stent
bronchiectasis
Plan
cr improving to 1.5 and non oliguric
bland UA and U na low 6 suggest KY, CRS
Cath on hold till renal function return baseline
wt is stable and on RA-ok to hold lasix
mild hyponatremia-monitor with FR
k is 3.7 replacement ordered per cards
follow BMP
-
-
Date of Service: February 18, 2025
CC / HPI / ROS
-
Chief Complaint:
JUAN
History of Present Illness:
JUAN/Cr better at 1.5
Na better at 134
k 3.7
abx for UTI
Review of Systems:
no CP/SOB at rest
Labs
-
Labs:
WBC 4.1 10^3/uL (4.8-10.8) L 02/18/25 04:15
RBC 3.55 10^6/uL (4.70-6.10) L 02/18/25 04:15
Hgb 8.9 g/dL (13.0-18.0) L 02/18/25 04:15
Hct 27.9 % (39.0-52.0) L 02/18/25 04:15
Plt Count 162 10^3/uL (130-400) 02/18/25 04:15
Sodium 134 mmol/L (135-145) L 02/18/25 04:15
Potassium 3.7 mmol/L (3.5-5.1) 02/18/25 04:15
Chloride 100 mmol/L (98-107) 02/18/25 04:15
Carbon Dioxide 30 mmol/L (22-30) 02/18/25 04:15
BUN 45 mg/dl (9-20) H 02/18/25 04:15
Creatinine 1.5 mg/dL (0.7-1.3) H 02/18/25 04:15
eGFR 47.65 02/18/25 04:15
Glucose 91 mg/dl (70-99) 02/18/25 04:15
Calcium 8.0 mg/dl (8.4-10.2) L 02/18/25 04:15
Lyd-H-Dvirlxlhuzu Pept 90203 pg/ml 02/08/25 15:30
Albumin 3.3 g/dl (3.5-5.0) L 02/11/25 04:54
Physical Exam
-
Vital Signs:
Vital Signs
Temp Pulse Resp BP Pulse Ox
97.7 F 58 18 119/58 98
02/18/25 08:37 02/18/25 09:00 02/18/25 08:37 02/18/25 08:34 02/18/25 08:37
Cardiovascular:: Regular rate and rhythm
Respiratory:: Bilateral: CTA
Lung Excursion:: Normal
Abdomen:: Nontender and Soft
Bowel Sounds:: Normal
Extremity Edema:: None: Bilateral:
Norman Catheter: No
--- NOTE | 2025-02-18 13:38 | W.PN.HOSP.TC ---
Today's Communication/Plan
-
Assessment / Plan
Assessment / Plan
General: No Apparent Distress, Comfortable and Conversant
HEENT: NormoCephalic, Moist mucous membranes, Atraumatic
Respiratory: Clear and Non Labored Respirations
Cardiac: S1/S2 and Regular Rhythm; No Rub or Gallop
GI: Soft, Non Tender, Non Distended and Normal Bowel Sounds
Musculoskeletal: No Edema, no deformity, improving erythema and induration right antecubital fossa
: NO Norman
Neuro: Awake, Alert, Nonfocal/grossly intact
Psych: Calm and cooperative
Acute Heart Failure with Reduced EF
- New diagnosis, ischemic etiology
- Echo showing LVEF 30 to 35% with global hypokinesis
- Cardiac cath showed multivessel CAD, near normal to mildly elevated right and left sided filling pressures, normal CO
- Have been holding Lasix due to JUAN which is improving, gave 1 dose of IV Lasix yesterday 02/17
- Continuing to hold losartan due to JUAN which is improving
- Weight down since admission 97.5 kg => 84.3 kg, likely close to his dry weight currently
- Beta-jenifer now with carvedilol, home metoprolol tartrate discontinued
Elevated Troponin, clinical concern for ischemia with inverted T waves in lateral leads
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
- Now current plan is tentatively for two-vessel PCI pending continued improvement in renal function, hopefully early next week 02/21
- Off of heparin drip, restarted Plavix
Superficial thrombophlebitis:
- Occlusive thrombus in the right median and cephalic vein, likely secondary to prior peripheral IV patient accidentally pulled out
- Improving
- Continue supportive care with warm compress and elevation
- No indication for anticoagulation, patient is already on DAPT for CAD
Altered mental status:
- Resolved
- Suspect multifactorial including due to UTI and hospital delirium
- CT brain shows no acute intracranial abnormalities
- Confusion possibly due to prior antibiotic for UTI, have switched to treatment with ampicillin instead of ceftriaxone
UTI:
- Urinalysis with pyuria and bacteriuria, culture growing Enterococcus sensitive to ampicillin
- Continue treatment with ampicillin to complete 7-day course (02/21)
JUAN:
- Kidney function beginning to improve, creatinine 1.5 on labs today
- Baseline creatinine appears to be around 1.2
- Likely secondary to KY based on labs
- Gave 1 dose of IV Lasix yesterday 02/17, continuing to hold scheduled diuretic for now
- Nephrology following, guidance appreciated
- Holding losartan
- Monitor
Hyponatremia:
- Mild, serum sodium 134 today
- Fluid restriction
- Gave 1 dose of IV Lasix yesterday 02/17, Will monitor
Iron-Deficiency Anemia
Heme positive stools
Gastric ulcers
-Patient reports he did have a colonoscopy earlier this year and had a precancerous polyp removed. He was scheduled for repeat colonoscopy in December which he cancelled due to his 's illness
- Started IV iron as patient has concurrent heart failure
- Status post endoscopy 02/12 which showed nonobstructing nonbleeding gastric ulcer with a visible vessel which was injected.
- Transitioned to PPI IV twice daily 02/15, tolerating diet
- Restarted Plavix
- Hemoglobin stable around 9.0, will monitor
Severe anemia suspected secondary to acute blood loss
- hemoglobin 8.6 and patient currently was having angina and has a multivessel CAD.
- Status post transfusion of 1 unit of PRBC 02/12
- Hemoglobin improved, hemoglobin 8.9 today, appears at baseline
Unspecified Arrhythmia
In sinus rhythm
-On metoprolol and diltiazem at home, both discontinued
- Started on carvedilol
Essential Hypertension
-Continue metoprolol
-Off of losartan due to JUAN
Hyperlipidemia
-Continue atorvastatin
Bronchiectasis -no flare
-Continue azithromycin
GERD
-Continue Pepcid
DVT proph: SCDs
Code Status: Full Code
Anticipated Discharge: > 48 hours
Subjective/Interval History
-
Date of Service: February 18, 2025
Patient was seen and examined at bedside. Comfortable. Kidney function continues to improve.
Objective Data
-
Labs:
Laboratory Results
02/18/25
04:15
WBC 4.1 L
Hgb 8.9 L
Hct 27.9 L
Plt Count 162
Sodium 134 L
Potassium 3.7
Chloride 100
Carbon Dioxide 30
BUN 45 H
Creatinine 1.5 H
Glucose 91
Calcium 8.0 L
Vital Signs:
Vital Signs
Temp Pulse Resp BP Pulse Ox
97.6 F 61 18 115/60 97
02/18/25 12:42 02/18/25 13:00 02/18/25 12:42 02/18/25 12:19 02/18/25 12:42
I&O
02/17/25 02/18/25 02/19/25
06:59 06:59 06:59
Intake Total 610 / 610 420 / 420 240 / 240
Output Total 900 / 900 950 / 950 150 / 150
Balance -290 / -290 -530 / -530 90 / 90
Review of Systems
-
History Source: Patient
All other systems: Reviewed and negative
Physical Exam
-
General: No Apparent Distress
--- NOTE | 2025-02-18 17:54 | PTCARENOTE ---
Patient tolerated sitting oob in the chair all day. Ambulating in the room, gait is steady and he feels much better/stronger. Resting in bed now, waiting for his daughter to visit, call conner in reach.
[2025-02-18] MEDS: COREG PO (20:26)
--- NOTE | 2025-02-18 23:22 | PTCARENOTE ---
Received patient at change of shift. SB on the monitor, HR in the 50s. Pt refused Coreg, HR 55 and BP 91/51. No complaints from pt at this time, call conner within reach.
[2025-02-19] VITALS (12 sets, daily range): BP systolic 101–129; BP diastolic 49–70; PULSE 54; O2SAT 98; BMI 25.4
[2025-02-19 05:17] LABS: Blood Urea Nitrogen 42 mg/dl (9-20); Calcium 8.2 mg/dl (8.4-10.2); Carbon Dioxide 29 mmol/L (22-30); Chloride 100 mmol/L (98-107); Estimated Creatinine Clearance 45 ml/min; Glucose 96 mg/dl (70-99); Magnesium 2.1 mg/dl (1.6-2.3); Potassium 4.2 mmol/L (3.5-5.1); Sodium 135 mmol/L (135-145); eGFR 47.65
[2025-02-19] MEDS: PEPCID 10 MG PO (09:00)
[2025-02-19] MEDS: CLARITIN 10 MG PO (09:00)
[2025-02-19] MEDS: PROTONIX IV 40 MG IV ×2 (09:00→19:28)
[2025-02-19] MEDS: PLAVIX 75 MG PO (09:00)
[2025-02-19] MEDS: ASPIR LOW (ENTERIC COATED) 81 MG PO (09:00)
[2025-02-19] MEDS: COREG 12.5 MG PO ×2 (09:00→19:29)
[2025-02-19] MEDS: AMPICILLIN 104 MG IV ×3 (09:00→23:09)
[2025-02-19] MEDS: LIPITOR 80 MG PO (09:00)
[2025-02-19] MEDS: NSS (PRESERVATIVE FREE) 10 ML IV ×2 (09:00→19:28)
[2025-02-19] MEDS: HYDROCORTISONE 1% CREAM TOPICAL ×2 (09:24→19:28)
[2025-02-19] MEDS: NITROSTAT (SUBLINGUAL) 0.4 MG SL (10:15)
--- NOTE | 2025-02-19 10:21 | PTCARENOTE ---
After eating breakfast patient c/o midsternal chest heaviness, unable to give it a rating for pain but 'feels heavy' and he had not had that feeling for several days. SB on the monitor, pulse ox 94% on RA. Placed on 2L NC, EKG done, TT to MONTSE Gilbert
and hospitalist. Patient given NTG SL x 1 and states it is almost 'gone'. Call conner in reach, will continue to monitor and he is aware to notify us immediately if it returns.
--- NOTE | 2025-02-19 12:30 | W.PN.CARDCBS ---
Today's Communication / Plan
-
Check hemoglobin
No medication changes
Tentatively PCI on Thursday
Impression / Plan
-
Primary Maintenance Apprentice: Dr. Funk with [facility] in [place], [place]
Impression:
Presented 02/08/2025 with SOB, LE edema
Acute HFrEF, proBNP 12,000
Newly diagnosed ischemic cardiomyopathy EF 30 to 35%
Abnormal EKG with lateral ST-T wave changes
NSTEMI, peak trop 0.1
Multivessel coronary artery disease on catheterization 02/10/2025
Mild to moderate mitral regurgitation
Moderate tricuspid regurgitation with severe pulmonary hypertension, PASP 62 mmHg
Microcytic anemia with gastric ulcer by EGD 02/12/25
h/o PVD with prior LE stents
Bronchiectasis
GERD
Past smoker quit 25 years ago
Daily alcohol, 2 drinks a day
Cephalic vein thrombus
Echo 02/08/2025: EF 30-35%, global hypokinesis, mild LVH, mild to moderate MR, moderate TR, estimated PAP 62 mmHg, severe pulmonary HTN
Right/left heart cath 02/10/2025: RA 9, PA 44/15, PCWP 10, CO/CI 4.8/2.29, LVEDP 22. LAD 80% ostial stenosis. Left circumflex with OM1 severe 80 to 90% proximal stenosis, 50% mid stenosis. RCA mid 90% stenosis then chronically totally occluded
Plan:
He had mild chest discomfort earlier today, resolved with nitroglycerin. Presently he is ambulating without further discomfort.
Hemoglobin had been dropping we will recheck to make sure that anemia is not playing a role. Given that he is feeling well, with anemia I will not add heparin. Continue aspirin and clopidogrel.
Plan remains PCI on Thursday. Continue to follow creatinine which is stable at 1.5.
HPI: Patient is a 79-year-old male with past medical history of PVD, bronchiectasis, GERD who presented to [facility] ER due to worsening bilateral lower extremity edema, shortness of breath, chest tightness over the past 10 days. His
January 23 he states this was a stressor for him. Over the past 10 days he has noticed he has woken up typically in the morning with some chest discomfort and shortness of breath, typically pain will dissipate by around 10 AM. He also has had
worsening lower extremity edema which he states is unusual for him. He woke up this morning at 3 AM with the chest discomfort and shortness of breath and symptoms were more severe and persisted, prompting ER evaluation. Typically he resides in
[facility] [place] and is visiting for the . He has been seen by termite treater helper in [place], and daughter is working on pulling up records. On arrival to the emergency room, proBNP elevated on arrival at 12,000. EKG with evidence of
lateral T wave abnormality with no prior to compare and troponin of 0.1. Cardiology consulted for evaluation. No present chest pain. Patient is chronically on aspirin and Plavix due to history of lower extremity stents. He denies any history of
coronary stenting, heart failure, cardiomyopathy, or valvular heart disease. He reports it was 'implied' that he had arrhythmia, but no clear history.
Progress Note - Maintenance Apprentice
Subjective
Date of Service: February 19, 2025:
79-year-old man admitted February 08 with acute HFrEF, EF 30-35% and chest discomfort, and catheterization had a 80% ostial LAD, OM1 with 80 to 90% proximal stenosis, 90% mid RCA stenosis, occluded distally. Patient turndown for CABG related to
porcelain aorta, tentatively planned for PCI on February 21 pending resolution of JUAN with peak creatinine of 2.1, now 1.5.
PMH: PAD, bronchiectasis, GERD
Current medications: Aspirin 81 mg daily, Zithromax 3 days a week, atorvastatin 80 mg a day, Claritin, Pepcid, carvedilol 12.5 twice daily, furosemide 20 mg a day on hold, clopidogrel 75 mg a day, pantoprazole 40 mg IV twice daily, ampicillin 1000
mg every 8 hours
Patient with chest pressure earlier, now comfortable
110/50, pulse 59, respiratory rate 18, afebrile, sats are 100%'s, weight is 85 kg, up 0.7 kg, was 97.5 kg on admission, lungs are clear regular rate and rhythm, no obvious murmurs, abdomen benign extremities without edema. Daughter at bedside.
BUN and creatinine are 42 and 1.5, stable, peak creatinine was 2.1. Hemoglobin yesterday was 8.9
Objective
Labs:
02/18/25 04:15
02/19/25 04:42
Labs
Hgb 8.9 g/dL (13.0-18.0) L 02/18/25 04:15
Hct 27.9 % (39.0-52.0) L 02/18/25 04:15
Plt Count 162 10^3/uL (130-400) 02/18/25 04:15
PT 14.5 Sec (11.4-14.6) 02/11/25 04:54
INR 1.11 02/11/25 04:54
APTT Cancelled 02/10/25 17:26
Sodium 135 mmol/L (135-145) 02/19/25 04:42
Potassium 4.2 mmol/L (3.5-5.1) 02/19/25 04:42
BUN 42 mg/dl (9-20) H 02/19/25 04:42
Creatinine 1.5 mg/dL (0.7-1.3) H 02/19/25 04:42
Glucose 96 mg/dl (70-99) 02/19/25 04:42
Vital Signs and I&O:
Vital Signs
Temp Pulse Resp BP Pulse Ox
36.6 C 59 18 110/50 100
02/19/25 11:38 02/19/25 12:00 02/19/25 11:38 02/19/25 11:38 02/19/25 11:38
Vital Signs
Temp Pulse Resp BP Pulse Ox
36.6 C 59 18 110/50 100
02/19/25 11:38 02/19/25 12:00 02/19/25 11:38 02/19/25 11:38 02/19/25 11:38
Intake & Output
02/17/25 02/18/25 02/19/25 02/20/25
07:59 07:59 07:59 07:59
Intake Total 610 / 610 420 / 420 1048 / 1288 344 / 344
Output Total 900 / 900 950 / 950 150 / 150 100 / 100
Balance -290 / -290 -530 / -530 898 / 1138 244 / 244
Physical Exam
Physical Exam
See above
--- NOTE | 2025-02-19 12:42 | W.PN.NEPH.PH ---
Today's Communication / Plan
-
follow labs
Assessment/Plan
-
Assessment
JUAN
Hyponatremia
Coronary artery disease
Heart failure reduced ejection fraction 30% non-ST elevation [place]
Moderate TR, severe pulmonary hypertension
Anemia
gastric ulcer
Peripheral artery disease with lower extremity stent
bronchiectasis
Plan
cr stable at 1.5 and subjectively non oliguric
bland UA and U na low 6 suggest [place], CRS
Cath on hold till renal function stabilizes
wt is slightly up but clear lungs and on RA-ok to hold lasix
PCWP was 10 with Wt of 87kg on 02/10
mild hyponatremia-stable with FR
HIgh risk PCI on 02/21
follow BMP
-
-
Date of Service: February 19, 2025
CC / HPI / ROS
-
Chief Complaint:
JUAN
History of Present Illness:
JUAN/Cr stable at 1.5
Na better at 135
k 4.2
abx for UTI
Review of Systems:
no SOB at rest
CP earlier today better with nitro SL, none during visit
Labs
-
Labs:
Sodium 135 mmol/L (135-145) 02/19/25 04:42
Potassium 4.2 mmol/L (3.5-5.1) 02/19/25 04:42
Chloride 100 mmol/L (98-107) 02/19/25 04:42
Carbon Dioxide 29 mmol/L (22-30) 02/19/25 04:42
BUN 42 mg/dl (9-20) H 02/19/25 04:42
Creatinine 1.5 mg/dL (0.7-1.3) H 02/19/25 04:42
eGFR 47.65 02/19/25 04:42
Glucose 96 mg/dl (70-99) 02/19/25 04:42
Calcium 8.2 mg/dl (8.4-10.2) L 02/19/25 04:42
Kaj-P-Dlilygsknoy Pept 33380 pg/ml 02/08/25 15:30
Albumin 3.3 g/dl (3.5-5.0) L 02/11/25 04:54
Physical Exam
-
Vital Signs:
Vital Signs
Temp Pulse Resp BP Pulse Ox
98 F 59 18 110/50 100
02/19/25 11:38 02/19/25 12:00 02/19/25 11:38 02/19/25 11:38 02/19/25 11:38
Cardiovascular:: Regular rate and rhythm
Respiratory:: Bilateral: CTA
Lung Excursion:: Normal
Abdomen:: Nontender and Soft
Bowel Sounds:: Normal
Extremity Edema:: None: Bilateral:
Norman Catheter: No
--- NOTE | 2025-02-19 13:26 | PTCARENOTE ---
Patient seen by nephrology, the patient had just came out of the bathroom and voided 100ml of urine in the urinal although states he voided while moving his bowels. Informed physician of patient's bladder scan and decreased urine output. Dr. Brown
asked me to tt cardiology and let them know she was ok if they wanted to give him lasix. TT sent to Dr. MONTSE Gilbert and Dr. Enriquez. Patient sitting oob in the chair now, no reoccurrence of chest heaviness, CBC drawn and sent to the lab as ordered.
[2025-02-19 13:46] LABS: Hematocrit 30.7 % (39.0-52.0); Hemoglobin 9.5 g/dL (13.0-18.0); Mean Corp Hgb Conc. 30.9 g/dL (33.0-37.0); Mean Corpuscular Volume 80.6 fL (80.0-94.0); Platelet Count 178 10^3/uL (130-400); Red Cell Dist. Width 18.7 % (11.5-14.5)
--- NOTE | 2025-02-19 13:48 | W.PN.HOSP.TC ---
Today's Communication/Plan
-
Assessment / Plan
Assessment / Plan
General: No Apparent Distress, Comfortable and Conversant
HEENT: NormoCephalic, Moist mucous membranes, Atraumatic
Respiratory: Clear and Non Labored Respirations
Cardiac: S1/S2 and Regular Rhythm; No Rub or Gallop
GI: Soft, Non Tender, Non Distended and Normal Bowel Sounds
Musculoskeletal: No Edema, no deformity, improving erythema and induration right antecubital fossa
: NO Norman
Neuro: Awake, Alert, Nonfocal/grossly intact
Psych: Calm and cooperative
Acute Heart Failure with Reduced EF
- New diagnosis, ischemic etiology
- Echo showing LVEF 30 to 35% with global hypokinesis
- Cardiac cath showed multivessel CAD, near normal to mildly elevated right and left sided filling pressures, normal CO
- Have been holding Lasix due to JUAN which is improving, gave 1 dose of IV Lasix 02/17, will continue holding diuretic for now
- Continuing to hold losartan due to JUAN which has improved
- Weight down since admission 97.5 kg => 85 kg, likely close to his dry weight currently
- Beta-jenifer now with carvedilol, home metoprolol tartrate discontinued
Elevated Troponin, clinical concern for ischemia with inverted T waves in lateral leads
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
- Now current plan is tentatively for two-vessel PCI pending continued improvement in renal function, hopefully early next week 02/21
- Off of heparin drip, restarted Plavix
Superficial thrombophlebitis:
- Occlusive thrombus in the right median and cephalic vein, likely secondary to prior peripheral IV patient accidentally pulled out
- Improving
- Continue supportive care with warm compress and elevation
- No indication for anticoagulation, patient is already on DAPT for CAD
Altered mental status:
- Resolved
- Suspect multifactorial including due to UTI and hospital delirium
- CT brain shows no acute intracranial abnormalities
- Confusion possibly due to prior antibiotic for UTI, have switched to treatment with ampicillin instead of ceftriaxone
UTI:
- Urinalysis with pyuria and bacteriuria, culture growing Enterococcus sensitive to ampicillin
- Continue treatment with ampicillin to complete 7-day course (02/21)
JUAN:
- Kidney function beginning to improve, creatinine 1.5 on labs today
- Baseline creatinine appears to be around 1.2
- Likely secondary to [place] based on labs
- Gave 1 dose of IV Lasix 02/17, continuing to hold scheduled diuretic for now
- Nephrology following, guidance appreciated
- Holding losartan
- Monitor
Hyponatremia:
- Mild, serum sodium 135 today
- Fluid restriction
- Gave 1 dose of IV Lasix 02/17, Will monitor
Iron-Deficiency Anemia
Heme positive stools
Gastric ulcers
-Patient reports he did have a colonoscopy earlier this year and had a precancerous polyp removed. He was scheduled for repeat colonoscopy in December which he cancelled due to his 's illness
- Started IV iron as patient has concurrent heart failure
- Status post endoscopy 02/12 which showed nonobstructing nonbleeding gastric ulcer with a visible vessel which was injected.
- Transitioned to PPI IV twice daily 02/15, tolerating diet
- Restarted Plavix
- Hemoglobin stable around 9.0, will monitor
Severe anemia suspected secondary to acute blood loss
- hemoglobin 8.6 and patient currently was having angina and has a multivessel CAD.
- Status post transfusion of 1 unit of PRBC 02/12
- Hemoglobin improved, hemoglobin 8.9 today, appears at baseline
Unspecified Arrhythmia
In sinus rhythm
-On metoprolol and diltiazem at home, both discontinued
- Started on carvedilol
Essential Hypertension
-Continue metoprolol
-Off of losartan due to JUAN
Hyperlipidemia
-Continue atorvastatin
Bronchiectasis -no flare
-Continue azithromycin
GERD
-Continue Pepcid
DVT proph: SCDs
Code Status: Full Code
Anticipated Discharge: > 48 hours
Subjective/Interval History
-
Date of Service: February 19, 2025
Patient was seen and examined at bedside. Had some chest tightness this morning that resolved with sublingual nitro.
Objective Data
-
Labs:
Laboratory Results
02/19/25 02/19/25
04:42 13:15
WBC 4.6 L
Hgb 9.5 L
Hct 30.7 L
Plt Count 178
Sodium 135
Potassium 4.2
Chloride 100
Carbon Dioxide 29
BUN 42 H
Creatinine 1.5 H
Glucose 96
Calcium 8.2 L
Vital Signs:
Vital Signs
Temp Pulse Resp BP Pulse Ox
98 F 59 18 110/50 100
02/19/25 11:38 02/19/25 12:00 02/19/25 11:38 02/19/25 11:38 02/19/25 11:38
I&O
02/18/25 02/19/25 02/20/25
06:59 06:59 06:59
Intake Total 420 / 420 1048 / 1048 344 / 344
Output Total 950 / 950 150 / 150 100 / 100
Balance -530 / -530 898 / 898 244 / 244
Review of Systems
-
History Source: Patient
All other systems: Reviewed and negative
Physical Exam
-
General: No Apparent Distress
[2025-02-20] VITALS (7 sets, daily range): BP systolic 114–127; BP diastolic 55–63; BMI 25.7
--- NOTE | 2025-02-20 01:25 | PTCARENOTE ---
assumed care of patient at the change of shift. AAOx3. denies any cp/sob. anxiously waiting for PCI Thursday. SB/SR on tele 40s-60s. bp stable. reviewed plan of care with patient and verbalized understanding. call conner within reach. makes needs
known.
[2025-02-20 04:31] LABS: Hematocrit 31.2 % (39.0-52.0); Hemoglobin 9.7 g/dL (13.0-18.0); Mean Corp Hgb Conc. 31.1 g/dL (33.0-37.0); Mean Corpuscular Volume 80.4 fL (80.0-94.0); Platelet Count 171 10^3/uL (130-400); Red Cell Dist. Width 18.8 % (11.5-14.5)
[2025-02-20 04:57] LABS: Blood Urea Nitrogen 36 mg/dl (9-20); Calcium 8.4 mg/dl (8.4-10.2); Carbon Dioxide 28 mmol/L (22-30); Chloride 102 mmol/L (98-107); Estimated Creatinine Clearance 52 ml/min; Glucose 91 mg/dl (70-99); Magnesium 2.2 mg/dl (1.6-2.3); Potassium 4.2 mmol/L (3.5-5.1); Sodium 138 mmol/L (135-145); eGFR 56.58
--- NOTE | 2025-02-20 08:12 | W.PN.NEPH.PH ---
Today's Communication / Plan
-
Creatinine continues to improve towards baseline at 1.3
Assessment/Plan
-
Assessment
JUAN
Hyponatremia
Coronary artery disease
Heart failure reduced ejection fraction 30% non-ST elevation [place]
Moderate TR, severe pulmonary hypertension
Anemia
gastric ulcer
Peripheral artery disease with lower extremity stent
bronchiectasis
Plan
cr stable at 1.3 and subjectively non oliguric
bland UA and U na low 6 suggest [place], CRS
Cath will be for tomorrow
Will provide contrast prophylaxis before cardiac catheterization
Would continue to hold Lasix until after cardiac catheterization
wt is slightly up but clear lungs and on RA-ok to hold lasix
PCWP was 10 with Wt of 87kg on 02/10
mild hyponatremia-stable with FR
HIgh risk PCI on 02/21
follow BMP
-
-
Date of Service: February 20, 2025
CC / HPI / ROS
-
Chief Complaint:
JUAN
History of Present Illness:
JUAN/Cr stable at 1. 3
Na better
k 4.2
abx for UTI
Review of Systems:
no SOB at rest
Not on
Labs
-
Labs:
WBC 4.8 10^3/uL (4.8-10.8) 02/20/25 04:20
RBC 3.88 10^6/uL (4.70-6.10) L 02/20/25 04:20
Hgb 9.7 g/dL (13.0-18.0) L 02/20/25 04:20
Hct 31.2 % (39.0-52.0) L 02/20/25 04:20
Plt Count 171 10^3/uL (130-400) 02/20/25 04:20
Sodium 138 mmol/L (135-145) 02/20/25 04:20
Potassium 4.2 mmol/L (3.5-5.1) 02/20/25 04:20
Chloride 102 mmol/L (98-107) 02/20/25 04:20
Carbon Dioxide 28 mmol/L (22-30) 02/20/25 04:20
BUN 36 mg/dl (9-20) H 02/20/25 04:20
Creatinine 1.3 mg/dL (0.7-1.3) 02/20/25 04:20
eGFR 56.58 02/20/25 04:20
Glucose 91 mg/dl (70-99) 02/20/25 04:20
Calcium 8.4 mg/dl (8.4-10.2) 02/20/25 04:20
Xkg-A-Kpuggywkahl Pept 19307 pg/ml 02/08/25 15:30
Albumin 3.3 g/dl (3.5-5.0) L 02/11/25 04:54
Physical Exam
-
Vital Signs:
Vital Signs
Temp Pulse Resp BP Pulse Ox
98.1 F 59 18 125/63 99
02/20/25 04:09 02/20/25 04:09 02/20/25 04:09 02/20/25 04:09 02/20/25 04:09
Cardiovascular:: Regular rate and rhythm
Respiratory:: Bilateral: CTA
Lung Excursion:: Normal
Abdomen:: Nontender and Soft
Bowel Sounds:: Normal
Extremity Edema:: None: Bilateral:
Norman Catheter: No
[2025-02-20] MEDS: CLARITIN 10 MG PO (09:09)
[2025-02-20] MEDS: AMPICILLIN 104 MG IV (09:09)
[2025-02-20] MEDS: COREG 12.5 MG PO ×2 (09:09→19:55)
[2025-02-20] MEDS: ASPIR LOW (ENTERIC COATED) 81 MG PO (09:09)
[2025-02-20] MEDS: HYDROCORTISONE 1% CREAM TOPICAL (09:10)
[2025-02-20] MEDS: LIPITOR 80 MG PO (09:10)
[2025-02-20] MEDS: PROTONIX IV 40 MG IV ×2 (09:11→19:55)
[2025-02-20] MEDS: NSS (PRESERVATIVE FREE) 10 ML IV ×2 (09:11→19:54)
[2025-02-20] MEDS: FLUSH (NSS) 3 FLUSH IV (09:11)
[2025-02-20] MEDS: PLAVIX 75 MG PO (09:12)
[2025-02-20] MEDS: PEPCID 10 MG PO (09:12)
--- NOTE | 2025-02-20 09:49 | PTCARENOTE ---
Patient slept well, no pain or sob this morning. Daughter at the bedside visiting. Anxious to have procedure done tomorrow.
--- NOTE | 2025-02-20 10:24 | W.PN.CARDCBS ---
Addendum entered and electronically signed by Allie Castaneda DO 02/21/25 01:07:
I saw and examined the patient.
The Retail Sales Professional's note was reviewed and I agree with the note.
Comment: Patient seen and examined. Offers no complaints. Denies chest pain or pressure, shortness of breath. Aware of plan for left heart catheterization tomorrow.
GEN: No distress, awake, alert, oriented x3
HEENT: mmm
LUNGS: CTA B/L, no wheezes/rales
CV: Reg, S1/S2, no murmur
ABD: soft, BS+, NT/ND
EXT: No edema
Plan:
79-year-old man who presented in acute decompensated heart failure and was found to have cardiomyopathy with moderately reduced LVEF. Coronary angiography identified multivessel CAD however he was not felt to be an operative candidate.
No cardiac complaints today including no chest discomfort or dyspnea
Appears euvolemic on exam - no further lasix
Continue medical management of CAD with aspirin/Plavix, high intensity statin and beta-jenifer
Creatinine is improving; appreciate nephrology input
[facility] 02/21/25
Original Note:
Today's Communication / Plan
-
NPO after midnight
Cardiac cath/PCI 02/21
Continue ASA, Plavix
Eventual resumption of KIEL-I/ARB after cath
Lasix remains on hold
Impression / Plan
-
Primary Crabber: Dr. Funk with [facility] in [place], [place]
Impression:
Presented 02/08/2025 with SOB, LE edema
Acute HFrEF, proBNP 12,000
Newly diagnosed ischemic cardiomyopathy EF 30 to 35%
Abnormal EKG with lateral ST-T wave changes
NSTEMI, peak trop 0.1
Multivessel coronary artery disease on catheterization 02/10/2025
Mild to moderate mitral regurgitation
Moderate tricuspid regurgitation with severe pulmonary hypertension, PASP 62 mmHg
Microcytic anemia with gastric ulcer by EGD 02/12/25
h/o PVD with prior LE stents
Bronchiectasis
GERD
Past smoker quit 25 years ago
Daily alcohol, 2 drinks a day
Cephalic vein thrombus
Echo 02/08/2025: EF 30-35%, global hypokinesis, mild LVH, mild to moderate MR, moderate TR, estimated PAP 62 mmHg, severe pulmonary HTN
Right/left heart cath 02/10/2025: RA 9, PA 44/15, PCWP 10, CO/CI 4.8/2.29, LVEDP 22. LAD 80% ostial stenosis. Left circumflex with OM1 severe 80 to 90% proximal stenosis, 50% mid stenosis. RCA mid 90% stenosis then chronically totally occluded
Plan:
-Presented 02/08/2025 with worsening SOB, LE edema. Admitted with acute CHF, proBNP 12,000. Also w/ chest discomfort at times w/ exertion.
Ischemic cardiomyopathy secondary to NSTEMI
- Peak troponin 0.1
- New cardiomyopathy presumably ischemic on echocardiogram with EF of 30 to 35%.
- Diuretic had been placed on hold secondary to JUAN from overdiuresis. Weight overall is down 17 pounds if not more since admission. Volume status appears stable. Eventual resumption of Lasix after cardiac catheterization.
- Underwent cardiac catheterization 02/10 noted to have multivessel CAD. 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
on 02/21
- in SR on review of tele. continue asa. Plavix resumed 02/14 as per GI recs. hgb 9.7 on 02/18, follow
- GDMT has been limited by ongoing hypotension. Continue aspirin/Plavix, high intensity statin and Coreg. Would avoid further uptitrating beta-jenifer secondary to bradycardia particularly at night. Heart rate stable in 50s and 60s during day.
- Currently not on KIEL/ARB/ARNI secondary to hypotension and JUAN. Improving. Consider adding KIEL/ARB post PCI.
JUAN, being followed by nephrology
- Developed JUAN in setting of diuresis. Cr has peaked at 2.1, down to 1.3 on .
- Nephrology to provide contrast prophylaxis before cardiac catheterization
- Continue to hold Lasix until after cardiac catheterization
Anemia/upper GI bleed
- also had melena and underwent EGD with gastric ulcer with visible vessel, injected and treated with bipolar cauterization. on IV PPI.
-ok from GI standpoint to proceed with cath and PCI.
-Hemoglobin dropped to low of 8.5. Current hemoglobin 9.7 02/20/2025 on DAPT
- admission complicated by change in mental status, JUAN, and UTI. Now resolved with abx
-RUE swelling and pain, RUE ultrasound 02/17/2025 w/ superficial thrombosis with occlusive thrombus in the cephalic vein and the median vein at the level of the antecubital fossa and proximal forearm.
Plan discussed with patient, patient's daughter, nursing and Dr. Garcia hospitalist
HPI: Patient is a 79-year-old male with past medical history of PVD, bronchiectasis, GERD who presented to [facility] ER due to worsening bilateral lower extremity edema, shortness of breath, chest tightness over the past 10 days. His
January 23 he states this was a stressor for him. Over the past 10 days he has noticed he has woken up typically in the morning with some chest discomfort and shortness of breath, typically pain will dissipate by around 10 AM. He also has had
worsening lower extremity edema which he states is unusual for him. He woke up this morning at 3 AM with the chest discomfort and shortness of breath and symptoms were more severe and persisted, prompting ER evaluation. Typically he resides in
[facility] [place] and is visiting for the . He has been seen by ironworker apprentice in [place], and daughter is working on pulling up records. On arrival to the emergency room, proBNP elevated on arrival at 12,000. EKG with evidence of
lateral T wave abnormality with no prior to compare and troponin of 0.1. Cardiology consulted for evaluation. No present chest pain. Patient is chronically on aspirin and Plavix due to history of lower extremity stents. He denies any history of
coronary stenting, heart failure, cardiomyopathy, or valvular heart disease. He reports it was 'implied' that he had arrhythmia, but no clear history.
Progress Note - Crabber
Subjective
Date of Service: February 20, 2025
Patient seen and examined. Patient's daughter at bedside. Patient overall reports he is feeling well. No additional chest tightness or discomfort in last 24 hours. He thinks he may have felt anxious which caused some of his symptoms yesterday.
Denies any further melena or dark stools
Objective
Labs:
02/20/25 04:20
02/20/25 04:20
Labs
Hgb 9.7 g/dL (13.0-18.0) L 02/20/25 04:20
Hct 31.2 % (39.0-52.0) L 02/20/25 04:20
Plt Count 171 10^3/uL (130-400) 02/20/25 04:20
PT 14.5 Sec (11.4-14.6) 02/11/25 04:54
INR 1.11 02/11/25 04:54
APTT Cancelled 02/10/25 17:26
Sodium 138 mmol/L (135-145) 02/20/25 04:20
Potassium 4.2 mmol/L (3.5-5.1) 02/20/25 04:20
BUN 36 mg/dl (9-20) H 02/20/25 04:20
Creatinine 1.3 mg/dL (0.7-1.3) 02/20/25 04:20
Glucose 91 mg/dl (70-99) 02/20/25 04:20
Vital Signs and I&O:
Vital Signs
Temp Pulse Resp BP Pulse Ox
98.1 F 59 18 127/55 99
02/20/25 04:09 02/20/25 09:09 02/20/25 04:09 02/20/25 09:09 02/20/25 04:09
Vital Signs
Temp Pulse Resp BP Pulse Ox
98.1 F 59 18 127/55 99
02/20/25 04:09 02/20/25 09:09 02/20/25 04:09 02/20/25 09:09 02/20/25 04:09
Intake & Output
02/18/25 02/19/25 02/20/25 02/21/25
06:59 06:59 06:59 06:59
Intake Total 420 / 420 1048 / 1048 688 / 688 344 / 344
Output Total 950 / 950 150 / 150 400 / 400 150 / 150
Balance -530 / -530 898 / 898 288 / 288 194 / 194
Physical Exam
Physical Exam
GEN: No distress, awake, Ox3
HEENT: supple, anicteric, mmm
LUNGS: CTA, no wheezes/rales
CV: Reg, S1/S2, 1/6 systolic murmur, no rub or gallop
ABD: soft, BS+, NT/ND
EXT: No edema, clubbing or cyanosis
NEURO: Gross non-focal
SKIN: No rash, warm, dry, pink
[2025-02-20] MEDS: ZITHROMAX 250 MG PO (10:28)
--- NOTE | 2025-02-20 10:28 | CM ---
Chart reviewed. Patient is independent of ADLS, lives alone in a 2nd floor apartment, elevator access, 0 DME. Patient's daughter is at bedside and said patient is going to come home with her and stay with her for a little while. Patient lives in
a [address]. PT evaluation recommending VN. Patient and daughter agreeable. Referral sent to VN. Plan is for the patient to go to his daughter's house with VN. CM to follow
[2025-02-20] MEDS: FLUSH (NSS) 1 FLUSH IV (10:29)
--- NOTE | 2025-02-20 10:57 | W.PN.HOSP.TC ---
Today's Communication/Plan
-
Continue with current treatments
Coronary PCI likely tomorrow
Assessment / Plan
Assessment / Plan
Acute Heart Failure with Reduced EF
- New diagnosis, ischemic etiology
- Echo showing LVEF 30 to 35% with global hypokinesis
- Cardiac cath showed multivessel CAD, near normal to mildly elevated right and left sided filling pressures, normal CO
- Have been holding Lasix due to JUAN which is improving, gave 1 dose of IV Lasix 02/17, will continue holding diuretic for now
- Continuing to hold losartan due to JUAN which has improved
- Weight down since admission 97.5 kg => 85 kg, likely close to his dry weight currently
- Beta-jenifer now with carvedilol, home metoprolol tartrate discontinued
Elevated Troponin, clinical concern for ischemia with inverted T waves in lateral leads
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
- Now current plan is tentatively for two-vessel PCI pending continued improvement in renal function, hopefully 02/21
- Off of heparin drip, restarted Plavix
Superficial thrombophlebitis:
- Occlusive thrombus in the right median and cephalic vein, likely secondary to prior peripheral IV patient accidentally pulled out
- Improving
- Continue supportive care with warm compress and elevation
- No indication for anticoagulation, patient is already on DAPT for CAD
Altered mental status:
- Resolved
- Suspect multifactorial including due to UTI and hospital delirium
- CT brain shows no acute intracranial abnormalities
- Confusion possibly due to prior antibiotic for UTI, have switched to treatment with ampicillin instead of ceftriaxone
UTI:
- Urinalysis with pyuria and bacteriuria, culture growing Enterococcus sensitive to ampicillin
- Continue treatment with ampicillin to complete 7-day course (02/21)
JUAN:
- Kidney function beginning to improve, creatinine 1.3 on labs today
- Baseline creatinine appears to be around 1.2
- Likely secondary to [place] based on labs
- Gave 1 dose of IV Lasix 02/17, continuing to hold scheduled diuretic for now
- Nephrology following, guidance appreciated
- Holding losartan
- Monitor
Hyponatremia:
- Mild, serum sodium 135 today
- Fluid restriction
- Gave 1 dose of IV Lasix 02/17, Will monitor
Iron-Deficiency Anemia
Heme positive stools
Gastric ulcers
-Patient reports he did have a colonoscopy earlier this year and had a precancerous polyp removed. He was scheduled for repeat colonoscopy in December which he cancelled due to his 's illness
- Started IV iron as patient has concurrent heart failure
- Status post endoscopy 02/12 which showed nonobstructing nonbleeding gastric ulcer with a visible vessel which was injected.
- Transitioned to PPI IV twice daily 02/15, tolerating diet
- Restarted Plavix
- Hemoglobin stable around 9.0, will monitor
Severe anemia suspected secondary to acute blood loss
- hemoglobin 8.6 and patient currently was having angina and has a multivessel CAD.
- Status post transfusion of 1 unit of PRBC 02/12
- Hemoglobin improved, hemoglobin 9.7 today
Unspecified Arrhythmia
In sinus rhythm
-On metoprolol and diltiazem at home, both discontinued
- Started on carvedilol
Essential Hypertension
-Continue metoprolol
-Off of losartan due to JUAN
Hyperlipidemia
-Continue atorvastatin
Bronchiectasis -no flare
-Continue azithromycin
GERD
-Continue Pepcid
DVT proph: SCDs
Code Status: Full Code
Anticipated Discharge: > 48 hours
Subjective/Interval History
-
Date of Service: February 20, 2025
No chest pain or shortness of breath. Denies any dizziness.
Objective Data
-
Labs:
Laboratory Results
02/20/25
04:20
WBC 4.8
Hgb 9.7 L
Hct 31.2 L
Plt Count 171
Sodium 138
Potassium 4.2
Chloride 102
Carbon Dioxide 28
BUN 36 H
Creatinine 1.3
Glucose 91
Calcium 8.4
Vital Signs:
Vital Signs
Temp Pulse Resp BP Pulse Ox
98.1 F 59 18 127/55 99
02/20/25 04:09 02/20/25 09:09 02/20/25 04:09 02/20/25 09:09 02/20/25 04:09
I&O
02/19/25 02/20/25 02/21/25
06:59 06:59 06:59
Intake Total 1048 / 1048 688 / 688 344 / 344
Output Total 150 / 150 400 / 400 150 / 150
Balance 898 / 898 288 / 288 194 / 194
Physical Exam
-
General: No Apparent Distress
Respiratory: Clear to Auscultation and Non Labored Respirations; Negative Accessory Resp Muscle Use
Cardiac: Regular Rhythm and S1/S2; Negative Tachycardic
Musculoskeletal: Negative No Edema (Trace bilateral lower extremity edema much improved compared to admission)
Neuro: AO x 3
Psych: Calm
Data Reviewed
-
Labs: Labs Reviewed by me
[2025-02-20] MEDS: AMPICILLIN 108 MG IV ×2 (15:40→21:06)
[2025-02-20] MEDS: HYDROCORTISONE 1% CREAM 1 APPLIC TOPICAL (19:56)
--- NOTE | 2025-02-20 21:26 | PTCARENOTE ---
Received pt from day shift, AAOx3, no complaints of pain or SOB. Right wrist and brachial site THOMAS. Pt is SB on the monitor with HR in the 50's, BP stable, on 2L O2 sating at 99%. Plan of care for PCI in the morning discussed and pt verbalized
understanding. Pt with phlebitis on his right F/A from IV infiltrate, heat pack applied, call conner in reach, pt has no needs at this time.
--- NOTE | 2025-02-20 23:55 | PTCARENOTE ---
assumed care of patient. resting in bed comfortably. denies any cp/sob at this time. SB on tele 40s. ambulated to the BR, steady. no lightheadedness/dizziness. bp stable. reviewed plan of care with patient and verbalized understanding. NPO at
midnight for cardiac cath in AM. call conner within reach. makes needs known.
[2025-02-21] VITALS (13 sets, daily range): BP systolic 103–153; BP diastolic 43–81; BMI 25.7
[2025-02-21] MEDS: AMPICILLIN 108 MG IV ×4 (04:02→21:06)
[2025-02-21 04:58] LABS: Blood Urea Nitrogen 28 mg/dl (9-20); Calcium 8.2 mg/dl (8.4-10.2); Carbon Dioxide 31 mmol/L (22-30); Chloride 104 mmol/L (98-107); Estimated Creatinine Clearance 52 ml/min; Glucose 91 mg/dl (70-99); Potassium 4.3 mmol/L (3.5-5.1); Sodium 137 mmol/L (135-145); eGFR 56.58
[2025-02-21] MEDS: LIPITOR 80 MG PO (07:55)
[2025-02-21] MEDS: PLAVIX 75 MG PO (07:55)
[2025-02-21] MEDS: ASPIR LOW (ENTERIC COATED) 81 MG PO (07:55)
[2025-02-21] MEDS: COREG 12.5 MG PO ×2 (07:55→19:37)
[2025-02-21] MEDS: NSS (PRESERVATIVE FREE) 10 ML IV ×2 (07:55→19:42)
[2025-02-21] MEDS: PROTONIX IV 40 MG IV ×2 (07:56→19:39)
[2025-02-21] MEDS: CLARITIN 10 MG PO (07:59)
[2025-02-21] MEDS: PEPCID 10 MG PO (07:59)
[2025-02-21] MEDS: HYDROCORTISONE 1% CREAM TOPICAL ×2 (08:00→19:42)
[2025-02-21] MEDS: SODIUM BICARBONATE 1150 MEQ IV (09:30)
[2025-02-21 11:10] LABS: ACT-LR - POC 266 Seconds (116-155)
--- NOTE | 2025-02-21 11:18 | W.PN.NEPH.PH ---
Today's Communication / Plan
-
Creatinine stable for cardiac catheterization to
Prophylaxis provided with IV fluids
Follow-up BMP in am
Assessment/Plan
-
Assessment
JUAN
Hyponatremia
Coronary artery disease
Heart failure reduced ejection fraction 30% non-ST elevation WA
Moderate TR, severe pulmonary hypertension
Anemia
gastric ulcer
Peripheral artery disease with lower extremity stent
bronchiectasis
Plan
cr stable at 1.3 and subjectively non oliguric
bland UA and U na low 6 suggest [place], CRS
Cath will be for today
Will provide contrast prophylaxis before cardiac catheterization
Would continue to hold Lasix until after cardiac catheterization
wt is slightly up but clear lungs and on RA-ok to hold lasix
PCWP was 10 with Wt of 87kg on 02/10
mild hyponatremiaimproved with FR
HIgh risk PCI on 02/21
follow BMP
-
-
Date of Service: February 21, 2025
CC / HPI / ROS
-
Chief Complaint:
JUAN
History of Present Illness:
JUAN/Cr stable at 1. 3
Na better
abx for UTI
Review of Systems:
no SOB at rest
Subjectively nonoliguric
Labs
-
Labs:
WBC 4.8 10^3/uL (4.8-10.8) 02/20/25 04:20
RBC 3.88 10^6/uL (4.70-6.10) L 02/20/25 04:20
Hgb 9.7 g/dL (13.0-18.0) L 02/20/25 04:20
Hct 31.2 % (39.0-52.0) L 02/20/25 04:20
Plt Count 171 10^3/uL (130-400) 02/20/25 04:20
Sodium 137 mmol/L (135-145) 02/21/25 04:09
Potassium 4.3 mmol/L (3.5-5.1) 02/21/25 04:09
Chloride 104 mmol/L (98-107) 02/21/25 04:09
Carbon Dioxide 31 mmol/L (22-30) H 02/21/25 04:09
BUN 28 mg/dl (9-20) H 02/21/25 04:09
Creatinine 1.3 mg/dL (0.7-1.3) 02/21/25 04:09
eGFR 56.58 02/21/25 04:09
Glucose 91 mg/dl (70-99) 02/21/25 04:09
Calcium 8.2 mg/dl (8.4-10.2) L 02/21/25 04:09
Egh-Y-Eitlagletdf Pept 02260 pg/ml 02/08/25 15:30
Albumin 3.3 g/dl (3.5-5.0) L 02/11/25 04:54
Physical Exam
-
Vital Signs:
Vital Signs
Temp Pulse Resp BP Pulse Ox
97.9 F 55 16 132/65 90
02/21/25 04:07 02/21/25 09:00 02/21/25 04:07 02/21/25 08:17 02/21/25 08:17
Cardiovascular:: Regular rate and rhythm
Respiratory:: Bilateral: CTA
Lung Excursion:: Normal
Abdomen:: Nontender and Soft
Bowel Sounds:: Normal
Extremity Edema:: None: Bilateral:
Norman Catheter: No
[2025-02-21 11:19] LABS: ACT-LR - POC 343 Seconds (116-155)
[2025-02-21 11:40] LABS: ACT-LR - POC 240 Seconds (116-155)
[2025-02-21 12:04] LABS: ACT-LR - POC > 397 Seconds (116-155)
[2025-02-21 12:16] LABS: ACT-LR - POC 310 Seconds (116-155)
[2025-02-21 12:44] LABS: ACT-LR - POC 248 Seconds (116-155)
[2025-02-21 12:58] LABS: ACT-LR - POC 387 Seconds (116-155)
[2025-02-21 13:12] LABS: ACT-LR - POC 250 Seconds (116-155)
[2025-02-21 13:33] LABS: ACT-LR - POC 337 Seconds (116-155)
[2025-02-21] MEDS: NSS 250 IV (14:00)
--- NOTE | 2025-02-21 14:12 | W.PN.UPDATE ---
Update Note
Progress Note Update
Successful PCI. CT Surgery will sign off. Please re-consult if needed.
--- NOTE | 2025-02-21 14:52 | CM ---
Chart reviewed. Patient is independent of ADLS, lives alone in a 2nd floor apartment, elevator access, 0 DME. Patient's daughter is at bedside and said patient is going to come home with her and stay with her for a little while. Patient lives in
a [address]. PT evaluation recommending VN. Patient and daughter agreeable. Referral sent to [facility]. [facility] has a [facility] doctor in [place]. Patient's daughter is working on getting patient set up with a [facility] doctor at [place]. Plan is for the patient
to go to his daughter's house with VN.
--- NOTE | 2025-02-21 15:35 | PTCARENOTE ---
Pt received this am with no c/o of any pain or sob. Room air sat 95%. Bicarb started as ordered 1 hour prior to cardiac cath. Pt returned from procedure at 1415. Left groin site dressing dry and intact, site WNL. Pt voiding clear yellow urine in the
urinal.
--- NOTE | 2025-02-21 15:57 | W.PN.HOSP.TC ---
Today's Communication/Plan
-
CW current meds
CW Post cath care per protocol
Assessment / Plan
Assessment / Plan
Acute Heart Failure with Reduced EF
- New diagnosis, ischemic etiology
- Echo showing LVEF 30 to 35% with global hypokinesis
- Cardiac cath showed multivessel CAD, near normal to mildly elevated right and left sided filling pressures, normal CO
- Have been holding Lasix due to JUAN which is improving, gave 1 dose of IV Lasix 02/17, will continue holding diuretic for now
- Continuing to hold losartan due to JUAN which has improved
- Weight down since admission 97.5 kg => 85 kg, likely close to his dry weight currently
- Beta-jenifer now with carvedilol, home metoprolol tartrate discontinued
Elevated Troponin, clinical concern for ischemia with inverted T waves in lateral leads
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
- s/p PCI today -official note pending
- Off of heparin drip, restarted Plavix
Superficial thrombophlebitis:
- Occlusive thrombus in the right median and cephalic vein, likely secondary to prior peripheral IV patient accidentally pulled out
- Improving
- Continue supportive care with warm compress and elevation
- No indication for anticoagulation, patient is already on DAPT for CAD
Altered mental status:
- Resolved
- Suspect multifactorial including due to UTI and hospital delirium
- CT brain shows no acute intracranial abnormalities
- Confusion possibly due to prior antibiotic for UTI, have switched to treatment with ampicillin instead of ceftriaxone
UTI:
- Urinalysis with pyuria and bacteriuria, culture growing Enterococcus sensitive to ampicillin
- Continue treatment with ampicillin to complete 7-day course (02/21)
JUAN:
- Kidney function beginning to improve, creatinine 1.3 on labs
- Baseline creatinine appears to be around 1.2
- Likely secondary to [place] based on labs
- Gave 1 dose of IV Lasix 02/17, continuing to hold scheduled diuretic for now
- Nephrology following, guidance appreciated
- Holding losartan
- Monitor
Hyponatremia:
- Mild, serum sodium 135 today
- Fluid restriction
- Gave 1 dose of IV Lasix 02/17, Will monitor
Iron-Deficiency Anemia
Heme positive stools
Gastric ulcers
-Patient reports he did have a colonoscopy earlier this year and had a precancerous polyp removed. He was scheduled for repeat colonoscopy in December which he cancelled due to his 's illness
- Started IV iron as patient has concurrent heart failure
- Status post endoscopy 02/12 which showed nonobstructing nonbleeding gastric ulcer with a visible vessel which was injected.
- Transitioned to PPI IV twice daily 02/15, tolerating diet
- Restarted Plavix
- Hemoglobin stable around 9.0, will monitor
Severe anemia suspected secondary to acute blood loss
- hemoglobin 8.6 and patient currently was having angina and has a multivessel CAD.
- Status post transfusion of 1 unit of PRBC 02/12
- Hemoglobin improved, hemoglobin 9.7 today
Unspecified Arrhythmia
In sinus rhythm
-On metoprolol and diltiazem at home, both discontinued
- Started on carvedilol
Essential Hypertension
-Continue metoprolol
-Off of losartan due to JUAN
Hyperlipidemia
-Continue atorvastatin
Bronchiectasis -no flare
-Continue azithromycin
GERD
-Continue Pepcid
DVT proph: SCDs
Code Status: Full Code
Anticipated Discharge: 24 - 48 hours
Subjective/Interval History
-
Date of Service: February 21, 2025
Back from a cardiac cath.
Denies any chest pain or shortness of breath. No dizziness. No nausea vomiting.
Objective Data
-
Labs:
Laboratory Results
02/21/25
04:09
Sodium 137
Potassium 4.3
Chloride 104
Carbon Dioxide 31 H
BUN 28 H
Creatinine 1.3
Glucose 91
Calcium 8.2 L
Vital Signs:
Vital Signs
Temp Pulse Resp BP Pulse Ox
97.6 F 59 18 144/81 96
02/21/25 14:29 02/21/25 15:00 02/21/25 14:29 02/21/25 15:30 02/21/25 15:00
I&O
02/20/25 02/21/25 02/22/25
06:59 06:59 06:59
Intake Total 688 / 688 594 / 594
Output Total 400 / 400 150 / 150
Balance 288 / 288 444 / 444
Physical Exam
-
General: Comfortable
Respiratory: Clear to Auscultation and Non Labored Respirations; Negative Accessory Resp Muscle Use
Cardiac: Regular Rhythm and S1/S2
GI: Soft
Neuro: AO x 3
Data Reviewed
-
Labs: Labs Reviewed by me
--- NOTE | 2025-02-21 17:22 | ITS.CL.CATH ---
[employer] - Catheterization
Cardiac Catheterization
Procedure Report:
LEFT HEART CATHETERIZATION AND CORONARY INTERVENTION
Date of Procedure: February
Referring: Danny Gilbert MD
PROCEDURES:
1. Left heart catheterization (this was checked again on this day study given recent JUAN with respiratory distress/ hypoxia on the table with ongoing IV fluids requiring IV diuresis)
2. Moderate sedation.
3. Successful percutaneous coronary artery intervention of OM1 with 2 overlapping 2.25 x 22 and 2.25 x 18 mm Medtronic Nik frontier drug-eluting stents, postdilated using a 2.25 mm NC balloon at high pressures with an excellent angiographic and
IVUS based result.
4. Successful percutaneous coronary artery intervention of ostial LAD with one 3.0 x 22 mm Medtronic Lonetree frontier drug-eluting stent, postdilated using a 3.25 mm NC balloon at high pressures distally and with a 4.0 mm NC balloon at high pressures
in the left main with an excellent angiographic and IVUS based result.
5. Successful percutaneous coronary artery intervention of ostial left circumflex with one 2.5 x 12 mm Medtronic Lonetree frontier drug-eluting stent, postdilated with the stent balloon at high pressures with a final kissing balloon in the LAD and
ostial circumflex with an excellent angiographic result.
6. Intravascular ultrasound of left main, LAD and left circumflex arteries.
7. Ultrasound-guided access.
INDICATION: NSTEMI and Cardiomyopathy with LVEF of 30%. Recent diagnostic heart catheterization showing a RCA LEAD SHOP OPERATOR which is well collateralized from the LAD with hazy calcified 80% ostial LAD stenosis and 2 lesions of 80% stenosis in proximal and
mid OM1. Heart team discussion was had and patient was deemed to be high risk for CABG and is now being referred for two-vessel PCI.
ACCESS: Right radial artery and right brachial vein, 6Fr. sheaths, under US guidance.
HEMODYNAMICS : (mmHg)
AO (s/d) : 135/45
LVEDP : 35
No significant gradient across the aortic valve to suggest aortic stenosis.
CORONARY FINDINGS
Dominance: Right
Left Main Trunk (LMT): �Large caliber vessel that gives rise to the LAD and LCx branches. The left main has mild disease.�
Left Anterior Descending Artery (LAD): �Large caliber calcified vessel that gives off a large major diagonal as it courses along the anterior inter-ventricular groove before wrapping around the cardiac apex. The ostial LAD has a 80% calcified
stenosis.�
Left Circumflex Artery (LCx): �Large caliber vessel that gives off a large caliber arborizing first major obtuse marginal (OM) and a medium OM2 branches as it courses along the atrio-ventricular (AV) groove. �The OM1 has severe 80-90% stenosis in
the proximal segment and 50% stenosis in the mid-vessel
Right Coronary Artery (RCA): �Large caliber heavily calcified dominant vessel. The vessel has a mid-segment 90% calcified stenosis and then is chronically totally occluded. This was known from recent diagnostic heart catheterization and was not
re-imaged on this study.
CORONARY INTERVENTION: The left coronary artery was selectively engaged using a 7 [place] EBU 3.75 guide catheter. Additional heparin was given throughout the case to maintain a therapeutic ACT. First a 190 cm 0.014' run-through wire was
successfully advanced into the distal LAD across the ostial LAD stenosis. A second 190 cm 0.014' BMW wire was carefully advanced across the OM lesions into the distal portion. Intravascular ultrasound using [place] eye IVUS catheter was utilized in
both the LAD/distal left main as well as ostial circumflex. There was no obstructive CAD noted in the ostial left circumflex artery however though the more severe lesion was in the ostial LAD, there was distal left main plaque noted. At this point
decision was made to proceed with OM 1 PCI and plan for ostial LAD PCI with provisional wire in the left circumflex artery without upfront plan for bifurcation PCI given lack of obstructive plaque noted in the ostial left circumflex. The 2 lesions
in the upper branch of OM1 were predilated using a 2.0 x 20 mm semicompliant balloon with full expansion. The lesions were stented using 2 overlapping 2.25 x 22 and 2.25 x 18 mm Medtronic Lonetree frontier drug-eluting stent and postdilated using a
2.25 mm NC balloon at high pressures with an excellent angiographic result. We then proceeded by predilating the ostial LAD lesion using a 3.0 x 12 mm semicompliant balloon with full expansion. This was subsequently stented using a 3.0 x 22 mm
Medtronic Nik frontier drug-eluting stent extending into the body of the left main jailing the left circumflex artery and postdilated using IVUS guidance with a 3.25 mm NC balloon and high-pressure drainage distally and 4.0 x 6 mm NC balloon at
high pressures proximally (left main) with an excellent angiographic result. This resulted in some plaque shift into the ostial left circumflex resulting in a 90% ostial left circumflex stenosis. After discussion with my interventional cardiology
colleague, Dr. Mateus Izquierdo, we decided to proceed with rescue stenting of the ostial left circumflex artery and a 'T' stenting technique. I had recrossed the stent struts into the left circumflex using a short 190 cm 0.014' whisper wire. Over
this I had to serially dilate the stent struts using initially a 1.5 mm balloon and subsequently a 2.0 mm balloon to be able to deliver a 2.5 x 12 mm Medtronic Lonetree frontier drug-eluting stent which was deployed at the ostial left circumflex. The
stent was postdilated using the stent balloon at high pressures. We then performed a final kissing balloon using a 2.5 x 12 mm balloon in the left circumflex from the left main and a 3.25 x 12 mm balloon from left main into LAD with simultaneous
inflations with an excellent angiographic and IVUS based result. Patient tolerated the procedure well with no acute complications. He had been loaded with clopidogrel at the end of last week in preparation for this and had received 75 mg this
morning.
SEDATION: 97 minutes of procedural sedation was utilized. IV Midazolam and IV Fentanyl were administered. An independent medical record technician was present to assist with and help manage the patient's level of consciousness and physiologic status.
Selective femoral angiography on the left side showed femoral arteriotomy was above the bifurcation and below the inferior epigastric artery and there is no significant stenosis in the visualized external iliac and mild calcified plaque in the
common femoral vessel. Below the arteriotomy site there is severe atherosclerotic plaque resulting in a 80% stenosis at the level of the bifurcation of the SFA and profunda with calcified plaque extending into both branch vessels. 8 [place]
Angio-Seal was utilized successfully with successful hemostasis over the right common femoral arterial access site.
CONCLUSIONS
1. Successful percutaneous coronary artery intervention of OM1 with 2 overlapping 2.25 x 22 and 2.25 x 18 mm Medtronic Lonetree frontier drug-eluting stents, postdilated using a 2.25 mm NC balloon at high pressures with an excellent angiographic and
IVUS based result.
2. Successful percutaneous coronary artery intervention of ostial LAD with one 3.0 x 22 mm Medtronic Lonetree frontier drug-eluting stent, postdilated using a 3.25 mm NC balloon at high pressures distally and with a 4.0 mm NC balloon at high pressures
in the left main with an excellent angiographic and IVUS based result.
3. Successful percutaneous coronary artery intervention of ostial left circumflex with one 2.5 x 12 mm Medtronic Nik frontier drug-eluting stent, postdilated with the stent balloon at high pressures with a final kissing balloon in the LAD and
ostial circumflex with an excellent angiographic result.
4. Significantly elevated LVEDP at 35 mmHg.
RECOMMENDATIONS
1. Wean radial band per protocol. Monitor right hand perfusion and for bleeding from the radial site following removal of the vascular-band following trans-radial access.
2. Continue aggressive medical therapy for ischemic cardiomyopathy and risk factor modification for secondary CAD prevention. IV diuretics.
3. Continue ASA 81 mg daily for life.
4. Continue clopidogrel for at least 12 months of uninterrupted dual anti-platelet therapy given drug-eluting stent (DAVE) implantation to mitigate the risk of stent thrombosis. This is not to be stopped for any reason without the guidance of a
fire safety director.
5. Referral for outpatient cardiac rehab.
Светлана Beverly MD, FAC, [facility]
copy: Orion Oswald.
[2025-02-21] MEDS: SENOKOT 8.6 MG PO (19:37)
[2025-02-21] MEDS: COLACE 100 MG PO (19:39)
[2025-02-22] VITALS (13 sets, daily range): BP systolic 103–128; BP diastolic 48–63; PULSE 55–70; O2SAT 85–99; BMI 25.5
--- NOTE | 2025-02-22 | PTCARENOTE ---
Received pt @ change of shift. AAOx3, VSS-- NSR/SB on monitor. Pt ambulating in room. Left groin site clean, dry, and intact. Soft to touch, no oozing, ecchymosis or hematoma present @ this time. Denies pain. Discussed plan of care. Pt verbalizes
understanding. Plan of care ongoing. Call conner within reach.
--- NOTE | 2025-02-22 00:03 | PTCARENOTE ---
During vitals @ HS, 02 level 86%-- RN put 2L NC on for sleep. Pt verbalizes understanding and agreed to wanting it on.
[2025-02-22] MEDS: AMPICILLIN 108 MG IV ×4 (03:03→21:01)
[2025-02-22 04:06] LABS: Blood Urea Nitrogen 24 mg/dl (9-20); Calcium 7.9 mg/dl (8.4-10.2); Carbon Dioxide 31 mmol/L (22-30); Chloride 103 mmol/L (98-107); Estimated Creatinine Clearance 49 ml/min; Glucose 100 mg/dl (70-99); Potassium 4.1 mmol/L (3.5-5.1); Sodium 139 mmol/L (135-145); eGFR 51.77
[2025-02-22] MEDS: ASPIR LOW (ENTERIC COATED) 81 MG PO (08:55)
[2025-02-22] MEDS: COLACE 100 MG PO (08:56)
[2025-02-22] MEDS: LIPITOR 80 MG PO (08:56)
[2025-02-22] MEDS: PLAVIX 75 MG PO (08:56)
[2025-02-22] MEDS: HYDROCORTISONE 1% CREAM TOPICAL ×3 (08:56→20:28)
[2025-02-22] MEDS: CLARITIN 10 MG PO (08:56)
[2025-02-22] MEDS: PROTONIX IV 40 MG IV ×2 (08:56→20:17)
[2025-02-22] MEDS: PEPCID 10 MG PO (08:57)
[2025-02-22] MEDS: NSS (PRESERVATIVE FREE) 10 ML IV ×2 (08:57→20:17)
[2025-02-22] MEDS: FLUSH (NSS) 2 FLUSH IV (08:58)
[2025-02-22] MEDS: COREG 12.5 MG PO ×2 (08:58→20:17)
[2025-02-22] MEDS: ZITHROMAX 250 MG PO (09:59)
[2025-02-22] MEDS: LASIX 40 MG IV (10:02)
--- NOTE | 2025-02-22 10:59 | CM ---
Chart reviewed. Patient is independent of ADLS, lives alone in a 2nd floor apartment, elevator access, 0 DME. Patient will be going to his daughters house in [place], [place]. [facility] doctor in [place] willing to write orders for [facility] and [facility] able to
accept. Plan is for the patient to go to his daughters house with [facility]. CM to follow
--- NOTE | 2025-02-22 11:11 | PTCARENOTE ---
Patient resting in bed, visiting with his sister, offers no complaints. Left groin dressing is dry and intact with palpable pedal pulse. He states he feels good, just is tired. Patient seen by Dr. Garcia and Dr. Brown, ok to have IV lasix which was
given, patient instructed to use the urinal sot that we can measure for I&O.
--- NOTE | 2025-02-22 12:36 | W.PN.NEPH.PH ---
Today's Communication / Plan
-
agree with lasix , follow labs
Assessment/Plan
-
Assessment
JUAN
Hyponatremia
Coronary artery disease
Heart failure reduced ejection fraction 30% non-ST elevation KS
Moderate TR, severe pulmonary hypertension
Anemia
gastric ulcer
Peripheral artery disease with lower extremity stent
bronchiectasis
Plan
cr relatively stable at 1.4 s/p contrast in [facility] high risk PCI on 02/21
completed IVF prophylaxis
noted LVEDP high at 35
agree with resuming diuretics
BP stable off ARB
follow BMP
d/w pt and primary
-
-
Date of Service: February 22, 2025
CC / HPI / ROS
-
Chief Complaint:
JUAN
History of Present Illness:
JUAN/Cr stable at 1. 4 s/p high risk PCI on 02/21
abx for UTI
no fever, BP stable
Review of Systems:
no SOB at rest
Subjectively nonoliguric
Labs
-
Labs:
WBC 4.8 10^3/uL (4.8-10.8) 02/20/25 04:20
RBC 3.88 10^6/uL (4.70-6.10) L 02/20/25 04:20
Hgb 9.7 g/dL (13.0-18.0) L 02/20/25 04:20
Hct 31.2 % (39.0-52.0) L 02/20/25 04:20
Plt Count 171 10^3/uL (130-400) 02/20/25 04:20
Sodium 139 mmol/L (135-145) 02/22/25 03:15
Potassium 4.1 mmol/L (3.5-5.1) 02/22/25 03:15
Chloride 103 mmol/L (98-107) 02/22/25 03:15
Carbon Dioxide 31 mmol/L (22-30) H 02/22/25 03:15
BUN 24 mg/dl (9-20) H 02/22/25 03:15
Creatinine 1.4 mg/dL (0.7-1.3) H 02/22/25 03:15
eGFR 51.77 02/22/25 03:15
Glucose 100 mg/dl (70-99) H 02/22/25 03:15
Calcium 7.9 mg/dl (8.4-10.2) L 02/22/25 03:15
Qmw-I-Oyltmgdgzgl Pept 67945 pg/ml 02/08/25 15:30
Albumin 3.3 g/dl (3.5-5.0) L 02/11/25 04:54
Physical Exam
-
Vital Signs:
Vital Signs
Temp Pulse Resp BP Pulse Ox
97.9 F 54 17 123/57 94
02/22/25 11:17 02/22/25 10:02 02/22/25 11:17 02/22/25 10:02 02/22/25 11:17
Cardiovascular:: Regular rate and rhythm
Respiratory:: Bilateral: CTA
Lung Excursion:: Normal
Abdomen:: Nontender and Soft
Bowel Sounds:: Normal
Extremity Edema:: None: Bilateral:
Norman Catheter: No
--- NOTE | 2025-02-22 13:55 | W.PN.CARDCBS ---
Addendum entered and electronically signed by Светлана Beverly MD 02/22/25 14:52:
Total time spent: 52mins
Addendum entered and electronically signed by Светлана Beverly MD 02/22/25 14:42:
I saw and examined the patient.
The Blanket Washer's note was reviewed and I agree with the note.
Comment: Overall Wil is doing well. He still gets short of breath with ambulation and desats on 2 L of oxygen mainly with exertion. Denies any chest discomfort. He had mild oozing at the groin site yesterday soon after the procedure but after
dressing change has remained well and stable with no issues with the groin overnight.
Vital signs and lab work reviewed. He remains in good spirits. No acute distress, he is out of bed in a chair, regular rate, normal S1 and S2, no murmurs, rubs or gallops, elevated JVP, fine bibasilar Rales, worse on the left base, abdomen is
soft, nontender, nondistended with active bowel sounds, warm extremities without significant edema, left femoral groin access site with dressing in place which is clean, dry and intact without evidence of hematoma or bruit.
Telemetry with couple episodes of short-lived paroxysmal atrial fibrillation.
Recommendations:
1. Patient is status post multivessel PCI doing well with no issues at the left groin site, plan to continue dual antiplatelet therapy with daily baby aspirin and Plavix for now. Hemoglobins have been stable with no bleeding issues. High
intensity statin.
2. Aggressive optimization of GDMT for underlying ischemic cardiomyopathy as renal function allows. Aggressive IV diuresis given LVEDP of 35 with ongoing need for oxygen and borderline saturations with exertion.
3. With telemetry showing overnight atrial fibrillation and CHADS2 Vascor of at least 5, we will plan on initiating Eliquis tonight at 5 mg twice daily with plan to watch hemoglobin closely. Plan will be for triple therapy with aspirin, Plavix and
Eliquis while hospitalized and then downgrade to Plavix and Eliquis upon discharge with close monitoring of blood counts as an outpatient.
4. Continue to wean oxygen, encourage incentive spirometry and out of bed to ambulation. PT OT as needed.
5. While aggressively diuresing, close monitoring of ins and outs, daily upright weights and electrolyte repletion as needed.
6. Anticipate hopeful early discharge home in the next 36 to 48 hours.
7. Outpatient cardiac rehab referral
8. Educated in regards to heart failure with reduced ejection fraction, focus on low-sodium diet, keep an eye on daily upright weights etc.
Discussed all of the above with patient and sister at bedside.
Светлана Beverly MD, [facility], [facility]
Total time spent: 35-minutes
Original Note:
Today's Communication / Plan
-
doing well post MV stenting 02/21
continue diuresis. for 80mg IV x1 this afternoon
trend Cr
follow on tele, had afib overnight, new diagnosis, paroxysmal. starting eliquis in addition to DAPT while admitted
follow hgb
wean supp O2
ambulate
Impression / Plan
-
Primary Power Mule Operator: Dr. Funk with [facility] [employer] of [facility] in [place], [place]
Impression:
Presented 02/08/2025 with SOB, LE edema
Acute HFrEF, proBNP 12,000
Newly diagnosed ischemic cardiomyopathy EF 30 to 35%
Abnormal EKG with lateral ST-T wave changes
NSTEMI, peak trop 0.1
Multivessel coronary artery disease on catheterization 02/10/2025 s/p OM1 PCI x2, LAD PCI, circ PCI 02/21/25
Paroxysmal atrial fibrillation, new diagnosis
Mild to moderate mitral regurgitation
Moderate tricuspid regurgitation with severe pulmonary hypertension, PASP 62 mmHg
Microcytic anemia with gastric ulcer by EGD 02/12/25
h/o PVD with prior LE stents
Bronchiectasis
GERD
Past smoker quit 25 years ago
Daily alcohol, 2 drinks a day
Cephalic vein thrombus
Echo 02/08/2025: EF 30-35%, global hypokinesis, mild LVH, mild to moderate MR, moderate TR, estimated PAP 62 mmHg, severe pulmonary HTN
Right/left heart cath 02/10/2025: RA 9, PA 44/15, PCWP 10, CO/CI 4.8/2.29, LVEDP 22. LAD 80% ostial stenosis. Left circumflex with OM1 severe 80 to 90% proximal stenosis, 50% mid stenosis. RCA mid 90% stenosis then chronically totally occluded
Plan:
- Presented 02/08/2025 with worsening SOB, LE edema. Admitted with acute CHF, proBNP 12,000. Also w/ chest discomfort at times w/ exertion. Trop 0.1. EF 30-35% by echo.
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
- cath was delayed due to JUAN, change in mental status, UTI with Cr which peaked at 2.1.
- underwent OM1 PCI x2, LAD PCI, and circ PCI 02/21/25
- feeling well today, no complaints
- denies groin discomfort
- was noted to have LVEDP of 35 at time of cath 02/21. placed back on IV lasix. Cr up slightly to 1.4 today, follow with diuresis. did not respond well to 40mg IV lasix, so will give dose of 80mg IV x1 this afternoon. overall weight down ~20 pounds
from admission. appreciate nephro input
- wean supp O2 as able. ambulate
- noted to have PAF overnight, new diagnosis, asymptomatic. eliquis added to DAPT for now while admitted, then on DC plan for eliquis, plavix.
- also had melena and underwent EGD with gastric ulcer with visible vessel, injected and treated with bipolar cauterization. hgb stable at 9.7. continue PPI
- Echo 02/08 with EF newly reduced at 30-35%. GDMT as able with coreg. losartan on hold at present. eventual consideration for SGLT2 inhibitor, aldactone
- RUE swelling and pain, RUE ultrasound 02/17/2025 w/ superficial thrombosis with occlusive thrombus in the cephalic vein and the median vein at the level of the antecubital fossa and proximal forearm.
- d/w sister at bedside. d/w nursing
HPI: Patient is a 79-year-old male with past medical history of PVD, bronchiectasis, GERD who presented to [facility] ER due to worsening bilateral lower extremity edema, shortness of breath, chest tightness over the past 10 days. His
January 23 he states this was a stressor for him. Over the past 10 days he has noticed he has woken up typically in the morning with some chest discomfort and shortness of breath, typically pain will dissipate by around 10 AM. He also has had
worsening lower extremity edema which he states is unusual for him. He woke up this morning at 3 AM with the chest discomfort and shortness of breath and symptoms were more severe and persisted, prompting ER evaluation. Typically he resides in
[facility] and is visiting for the . He has been seen by receiving worker in [place], and daughter is working on pulling up records. On arrival to the emergency room, proBNP elevated on arrival at 12,000. EKG with evidence of
lateral T wave abnormality with no prior to compare and troponin of 0.1. Cardiology consulted for evaluation. No present chest pain. Patient is chronically on aspirin and Plavix due to history of lower extremity stents. He denies any history of
coronary stenting, heart failure, cardiomyopathy, or valvular heart disease. He reports it was 'implied' that he had arrhythmia, but no clear history.
Progress Note - Power Mule Operator
Subjective
Date of Service: February 22, 2025
feeling well overnight. no SOB, CP, groin pain, palpitations
Objective
Labs:
02/20/25 04:20
02/22/25 03:15
Labs
Hgb 9.7 g/dL (13.0-18.0) L 02/20/25 04:20
Hct 31.2 % (39.0-52.0) L 02/20/25 04:20
Plt Count 171 10^3/uL (130-400) 02/20/25 04:20
PT 14.5 Sec (11.4-14.6) 02/11/25 04:54
INR 1.11 02/11/25 04:54
APTT Cancelled 02/10/25 17:26
Sodium 139 mmol/L (135-145) 02/22/25 03:15
Potassium 4.1 mmol/L (3.5-5.1) 02/22/25 03:15
BUN 24 mg/dl (9-20) H 02/22/25 03:15
Creatinine 1.4 mg/dL (0.7-1.3) H 02/22/25 03:15
Glucose 100 mg/dl (70-99) H 02/22/25 03:15
Vital Signs and I&O:
Vital Signs
Temp Pulse Resp BP Pulse Ox
97.9 F 59 17 103/49 94
02/22/25 11:17 02/22/25 12:00 02/22/25 11:17 02/22/25 11:55 02/22/25 11:17
Vital Signs
Temp Pulse Resp BP Pulse Ox
97.9 F 59 17 103/49 94
02/22/25 11:17 02/22/25 12:00 02/22/25 11:17 02/22/25 11:55 02/22/25 11:17
Intake & Output
02/20/25 02/21/25 02/22/25 02/23/25
07:59 07:59 07:59 07:59
Intake Total 688 / 1032 594 / 594 118 / 118 240 / 240
Output Total 400 / 550 150 / 150 200 / 200
Balance 288 / 482 444 / 444 118 / 118 40 / 40
Physical Exam
Physical Exam
GEN: No distress, awake, alert, oriented x3. sitting in chair. on supp O2
HEENT: supple, anicteric, mmm, eomi
LUNGS: CTA B/L, no wheezes/rales
CV: Reg, S1/S2, no murmur
ABD: soft, BS+, NT/ND
EXT: No cyanosis, clubbing. trace edema of B/L LE
NEURO: Gross non-focal
SKIN: Warm, pink, dry. No rash. Groin site with dressing c/d/i, soft, NTTP
--- NOTE | 2025-02-22 15:28 | PTCARENOTE ---
Ambulated patient in the islas approximately 200 feet. No sob or chest pain, patient felt like he was 'a little off ' with his gait. Pulse ox on RA 99% prior to walk, dropped to 85% during ambulation. Patient ordered additional 80mg IV lasix this
afternoon.
[2025-02-22] MEDS: LASIX 80 MG IV (15:53)
[2025-02-22] MEDS: FLUSH (NSS) 3 FLUSH IV (15:54)
[2025-02-22] MEDS: ELIQUIS 5 MG PO (20:16)
[2025-02-22] MEDS: COLACE PO (20:28)
--- NOTE | 2025-02-23 01:02 | PTCARENOTE ---
Pt received from day shift staff, Salma3, SR on the monitor, no complaints of CP or SOB. Pt is post cath with site in the left femoral which is CDI. Pt. has old sites in the right radial and brachial which are [place] [place]. Pt had a thrombus to the Right
A/C and did not want any heat at this time, site is hard to the touch but is not painful to the pt. Right arm limb restriction band placed. Pt educated on plan of care and verbalized understanding. Vital signs have been stable, call conner within
reach.
[2025-02-23] MEDS: AMPICILLIN 108 MG IV ×2 (03:24→10:03)
[2025-02-23 03:27] VITALS: BP 128/56
[2025-02-23 03:43] VITALS: BMI 25.6
[2025-02-23 04:09] LABS: Hematocrit 27.5 % (39.0-52.0); Hemoglobin 8.5 g/dL (13.0-18.0); Mean Corp Hgb Conc. 30.9 g/dL (33.0-37.0); Mean Corpuscular Volume 80.2 fL (80.0-94.0); Platelet Count 275 10^3/uL (130-400); Red Cell Dist. Width 19.8 % (11.5-14.5)
[2025-02-23 04:27] LABS: Blood Urea Nitrogen 22 mg/dl (9-20); Calcium 8.2 mg/dl (8.4-10.2); Carbon Dioxide 29 mmol/L (22-30); Chloride 105 mmol/L (98-107); Estimated Creatinine Clearance 40 ml/min; Glucose 90 mg/dl (70-99); Potassium 3.8 mmol/L (3.5-5.1); Sodium 137 mmol/L (135-145); eGFR 41.01
[2025-02-23 07:48] VITALS: BP 139/57
[2025-02-23] MEDS: LIPITOR 80 MG PO (08:08)
[2025-02-23] MEDS: COREG 12.5 MG PO ×2 (08:08→19:50)
[2025-02-23] MEDS: ELIQUIS 5 MG PO ×2 (08:08→19:50)
[2025-02-23] MEDS: ASPIR LOW (ENTERIC COATED) 81 MG PO (08:09)
[2025-02-23] MEDS: PLAVIX 75 MG PO (08:09)
[2025-02-23] MEDS: COLACE 100 MG PO ×2 (08:10→19:49)
[2025-02-23] MEDS: HYDROCORTISONE 1% CREAM TOPICAL (08:11)
[2025-02-23] MEDS: CLARITIN 10 MG PO (08:14)
[2025-02-23] MEDS: PEPCID 10 MG PO (08:15)
[2025-02-23] MEDS: LASIX IV (10:01)
--- NOTE | 2025-02-23 10:02 | W.PN.CARDCBS ---
Addendum entered and electronically signed by Светлана Beverly MD 02/23/25 22:49:
I saw and examined the patient.
The Extraction Supervisor's note was reviewed and I agree with the note.
Comment: Overall Wil is doing well. SOB better though did not put out much to lasix yesterday. Off oxygen. No further CP.
Vital signs and lab work reviewed. He continues to remain in good spirits despite long hospitalization. No acute distress, he is out of bed in a chair, regular rate, normal S1 and S2, no murmurs, rubs or gallops, elevated JVP, fine bibasilar
Rales, worse on the left base, abdomen is soft, nontender, nondistended with active bowel sounds, warm extremities without significant edema, left femoral groin access site with dressing in place which is clean, dry and intact without evidence of
hematoma or bruit.
Telemetry with couple episodes of short-lived paroxysmal atrial fibrillation.
Recommendations:
1. Patient is status post multivessel PCI doing well with no issues at the left groin site, plan to continue dual antiplatelet therapy with daily baby aspirin and Plavix for now. Hemoglobins have been stable with no bleeding issues. High
intensity statin.
2. Aggressive optimization of GDMT for underlying ischemic cardiomyopathy as renal function allows. Holding diuretics for now per nephrology given creat 1.7 after initially discussing giving diuretic. Reassess ins/outs, weight and creat in AM.
3. Discussed with patient and daughter at bedside regarding paroxysmal atrial fibrillation and CHADS2 Vasc score of at least 5, he was started on Eliquis at 5 mg twice daily with plan to watch hemoglobin closely. Plan will be for triple therapy
with aspirin, Plavix and Eliquis while hospitalized and then downgrade to Plavix and Eliquis upon discharge with close monitoring of blood counts as an outpatient.
4. Continue to encourage incentive spirometry and out of bed to ambulation. PT OT as needed.
5. Anticipate hopeful early discharge home in the next 36 to 48 hours.
6. Outpatient cardiac rehab referral
7. Educated in regards to heart failure with reduced ejection fraction, focus on low-sodium diet, keep an eye on daily upright weights etc.
Discussed all of the above with patient and daughter at bedside. D/w nursing
Светлана Beverly MD, [facility], [facility]
Total time spent: 52-minutes
Original Note:
Today's Communication / Plan
-
Cr up to 1.7. consider holding lasix today
bladder scan
follow hgb on triples, consider stopping asa now as with ulcer found this admission
eventual GDMT as renal function allows
hopeful for DC in AM
Impression / Plan
-
Primary Library Services Coordinator: Dr. Funk with [facility] in [place], [place]
Impression:
Presented 02/08/2025 with SOB, LE edema
Acute HFrEF, proBNP 12,000
Newly diagnosed ischemic cardiomyopathy EF 30 to 35%
Abnormal EKG with lateral ST-T wave changes
NSTEMI, peak trop 0.1
Multivessel coronary artery disease on catheterization 02/10/2025 s/p OM1 PCI x2, LAD PCI, circ PCI 02/21/25
Paroxysmal atrial fibrillation, new diagnosis
Mild to moderate mitral regurgitation
Moderate tricuspid regurgitation with severe pulmonary hypertension, PASP 62 mmHg
Microcytic anemia with gastric ulcer by EGD 02/12/25
h/o PVD with prior LE stents
Bronchiectasis
GERD
Past smoker quit 25 years ago
Daily alcohol, 2 drinks a day
Cephalic vein thrombus
Echo 02/08/2025: EF 30-35%, global hypokinesis, mild LVH, mild to moderate MR, moderate TR, estimated PAP 62 mmHg, severe pulmonary HTN
Right/left heart cath 02/10/2025: RA 9, PA 44/15, PCWP 10, CO/CI 4.8/2.29, LVEDP 22. LAD 80% ostial stenosis. Left circumflex with OM1 severe 80 to 90% proximal stenosis, 50% mid stenosis. RCA mid 90% stenosis then chronically totally occluded
Plan:
- Presented 02/08/2025 with worsening SOB, LE edema. Admitted with acute CHF, proBNP 12,000. Also w/ chest discomfort at times w/ exertion. Trop 0.1. EF 30-35% by echo.
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
- cath was delayed due to JUAN, change in mental status, UTI with Cr which peaked at 2.1.
- underwent OM1 PCI x2, LAD PCI, and circ PCI 02/21/25
- feeling well today, no complaints
- was noted to have LVEDP of 35 at time of cath 02/21. placed back on IV lasix. despite total of 120mg IV lasix 02/22, without reported significant urine output. Cr up to 1.7. consider holding lasix today and bladder scanning. no complaints of SOB,
LE edema. he is now off supp O2. overall weight down ~20 pounds from admission. appreciate nephro input
- ambulate. states he did well with PT yesterday
- noted to have PAF 02/21 evening, new diagnosis, asymptomatic. eliquis added to DAPT for now while admitted, then on DC plan for eliquis, plavix. no recurrence of arrhythmia overnight noted
- also had melena and underwent EGD with gastric ulcer with visible vessel, injected and treated with bipolar cauterization. hgb downtrending to 8.5, follow. continue PPI
- Echo 02/08 with EF newly reduced at 30-35%. GDMT as able with coreg. losartan on hold at present with RI. eventual consideration for SGLT2 inhibitor, aldactone
- RUE swelling and pain, RUE ultrasound 02/17/2025 w/ superficial thrombosis with occlusive thrombus in the cephalic vein and the median vein at the level of the antecubital fossa and proximal forearm.
- hopeful for DC in AM
- OP cardiac follow up arranged
- CBC/BMP/proBNP in 1 week
- cardiac rehab
- will need repeat echo in 90 days to reassess EF
- d/w nursing, hospitalist
HPI: Patient is a 79-year-old male with past medical history of PVD, bronchiectasis, GERD who presented to [facility] ER due to worsening bilateral lower extremity edema, shortness of breath, chest tightness over the past 10 days. His
January 23 he states this was a stressor for him. Over the past 10 days he has noticed he has woken up typically in the morning with some chest discomfort and shortness of breath, typically pain will dissipate by around 10 AM. He also has had
worsening lower extremity edema which he states is unusual for him. He woke up this morning at 3 AM with the chest discomfort and shortness of breath and symptoms were more severe and persisted, prompting ER evaluation. Typically he resides in
[facility] and is visiting for the . He has been seen by blackener in [place], and daughter is working on pulling up records. On arrival to the emergency room, proBNP elevated on arrival at 12,000. EKG with evidence of
lateral T wave abnormality with no prior to compare and troponin of 0.1. Cardiology consulted for evaluation. No present chest pain. Patient is chronically on aspirin and Plavix due to history of lower extremity stents. He denies any history of
coronary stenting, heart failure, cardiomyopathy, or valvular heart disease. He reports it was 'implied' that he had arrhythmia, but no clear history.
Progress Note - Library Services Coordinator
Subjective
Date of Service: February 23, 2025
no complaints. denies significant urine output overnight
Objective
Labs:
02/23/25 03:40
02/23/25 03:40
Labs
Hgb 8.5 g/dL (13.0-18.0) L 02/23/25 03:40
Hct 27.5 % (39.0-52.0) L 02/23/25 03:40
Plt Count 275 10^3/uL (130-400) D 02/23/25 03:40
PT 14.5 Sec (11.4-14.6) 02/11/25 04:54
INR 1.11 02/11/25 04:54
APTT Cancelled 02/10/25 17:26
Sodium 137 mmol/L (135-145) 02/23/25 03:40
Potassium 3.8 mmol/L (3.5-5.1) 02/23/25 03:40
BUN 22 mg/dl (9-20) H 02/23/25 03:40
Creatinine 1.7 mg/dL (0.7-1.3) H 02/23/25 03:40
Glucose 90 mg/dl (70-99) 02/23/25 03:40
Vital Signs and I&O:
Vital Signs
Temp Pulse Resp BP Pulse Ox
98.3 F 54 20 139/57 95
02/23/25 07:48 02/23/25 08:00 02/23/25 07:48 02/23/25 07:48 02/23/25 08:00
Vital Signs
Temp Pulse Resp BP Pulse Ox
98.3 F 54 20 139/57 95
02/23/25 07:48 02/23/25 08:00 02/23/25 07:48 02/23/25 07:48 02/23/25 08:00
Intake & Output
02/21/25 02/22/25 02/23/25 02/24/25
07:59 07:59 07:59 07:59
Intake Total 594 / 594 118 / 118 1272 / 1272
Output Total 150 / 150 350 / 350
Balance 444 / 444 118 / 118 922 / 922
Physical Exam
Physical Exam
GEN: No distress, awake, alert, oriented x3.
HEENT: supple, anicteric, mmm, eomi
LUNGS: CTA B/L, no wheezes/rales
CV: Reg, S1/S2, no murmur
ABD: soft, BS+, NT/ND
EXT: No cyanosis, clubbing.
NEURO: Gross non-focal
SKIN: Warm, pink, dry. No rash.
[2025-02-23] MEDS: PROTONIX IV IV (10:07)
[2025-02-23] MEDS: NSS (PRESERVATIVE FREE) IV (10:07)
[2025-02-23] MEDS: PROTONIX 40 MG PO ×2 (10:41→19:49)
[2025-02-23 10:57] VITALS: BP 111/46
--- NOTE | 2025-02-23 11:03 | CM ---
Chart reviewed. Chart reviewed. Patient is independent of ADLS, lives alone in a 2nd floor apartment, elevator access, 0 DME. Patient is going to his daughter's house when medically stable for discharge, [address], [place].
Patient's daughter lives in a [address] [facility]. Patient's will be going to his daughter's house with VN. Patient's PCP, [place] Doctor, will need discharge summary faxed to [phone]. Patient's O2 saturation dropped to 85% while ambulating. Patient
received an additional dose of Lasix. CM to follow for O2 needs. CM to follow
--- NOTE | 2025-02-23 12:48 | W.PN.HOSP.TC ---
Today's Communication/Plan
-
Continue with diuretics
Follow creatinine
DC planning
Assessment / Plan
Assessment / Plan
Acute Heart Failure with Reduced EF
- New diagnosis, ischemic etiology
- Echo showing LVEF 30 to 35% with global hypokinesis
- Cardiac cath showed multivessel CAD, near normal to mildly elevated right and left sided filling pressures, normal CO
- Continuing to hold losartan due to JUAN which has improved
- - Beta-jenifer now with carvedilol, home metoprolol tartrate discontinued
- Continue with diuretics per cardiology currently on IV
Elevated Troponin, clinical concern for ischemia with inverted T waves in lateral leads
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
- s/p PCI 02/22
- On dual antiplatelet regimen
- Patient without chest pain
New diagnosis of paroxysmal atrial fibrillation
Initiated on Eliquis per cardiology; [id number]
Superficial thrombophlebitis:
- Occlusive thrombus in the right median and cephalic vein, likely secondary to prior peripheral IV patient accidentally pulled out
- Improving
- Continue supportive care with warm compress and elevation
- No indication for anticoagulation, patient is already on DAPT for CAD
Altered mental status:
- Resolved
- Suspect multifactorial including due to UTI and hospital delirium
- CT brain shows no acute intracranial abnormalities
- Confusion possibly due to prior antibiotic for UTI, have switched to treatment with ampicillin instead of ceftriaxone
UTI:
- Urinalysis with pyuria and bacteriuria, culture growing Enterococcus sensitive to ampicillin
- Continue treatment with ampicillin to complete 7-day course (02/21)
JUAN:
- creatinine 1.7
- Baseline creatinine appears to be around 1.2
- Likely secondary to [place] based on labs
- Nephrology following, guidance appreciated
- Holding losartan
- Monitor
Hyponatremia:
- Normalized
Iron-Deficiency Anemia
Heme positive stools
Gastric ulcers
-Patient reports he did have a colonoscopy earlier this year and had a precancerous polyp removed. He was scheduled for repeat colonoscopy in December which he cancelled due to his 's illness
- Started IV iron as patient has concurrent heart failure
- Status post endoscopy 02/12 which showed nonobstructing nonbleeding gastric ulcer with a visible vessel which was injected.
- Transitioned to PPI IV twice daily 02/15, tolerating diet
- Restarted Plavix
- Hemoglobin stable around 9.0, will monitor
Severe anemia suspected secondary to acute blood loss
- hemoglobin 8.6 and patient currently was having angina and has a multivessel CAD.
- Status post transfusion of 1 unit of PRBC 02/12
- Hemoglobin improved, hemoglobin 9.7
Essential Hypertension
-Continue metoprolol
-Off of losartan due to JUAN
Hyperlipidemia
-Continue atorvastatin
Bronchiectasis -no flare
-Continue azithromycin
GERD
-Continue Pepcid
DVT proph: SCDs
Code Status: Full Code
Anticipated Discharge: 24 - 48 hours
Subjective/Interval History
-
Date of Service: February 23, 2025
Denies any chest pain or shortness of breath. Off of oxygen.
Objective Data
-
Labs:
Laboratory Results
02/23/25
03:40
WBC 5.4
Hgb 8.5 L
Hct 27.5 L
Plt Count 275 D
Sodium 137
Potassium 3.8
Chloride 105
Carbon Dioxide 29
BUN 22 H
Creatinine 1.7 H
Glucose 90
Calcium 8.2 L
Vital Signs:
Vital Signs
Temp Pulse Resp BP Pulse Ox
98.4 F 54 18 139/57 95
02/23/25 10:57 02/23/25 08:00 02/23/25 10:57 02/23/25 07:48 02/23/25 10:57
I&O
02/22/25 02/23/25 02/24/25
06:59 06:59 06:59
Intake Total 118 / 118 1272 / 1272
Output Total 350 / 350
Balance 118 / 118 922 / 922
Physical Exam
-
General: Comfortable
Respiratory: Clear to Auscultation and Non Labored Respirations; Negative Accessory Resp Muscle Use
Cardiac: Regular Rhythm and S1/S2; Negative Tachycardic
GI: Soft, Nontender, Nondistended and Normal Bowel Sounds
Musculoskeletal: Edema, Right Lower Extrem and Edema, Left Lower Extrem
Neuro: AO x 3
Psych: Calm; Negative Confused
Data Reviewed
-
Labs: Labs Reviewed by me
--- NOTE | 2025-02-23 13:10 | W.PN.NEPH.PH ---
Today's Communication / Plan
-
ok to hold lasix today
Assessment/Plan
-
Assessment
JUAN
Hyponatremia
Coronary artery disease
Heart failure reduced ejection fraction 30% non-ST elevation SD
Moderate TR, severe pulmonary hypertension
Anemia
gastric ulcer
Peripheral artery disease with lower extremity stent
bronchiectasis
Plan
JUAN-cr uptrending to 1.7 with diuresis and also s/p contrast on 02/21
noted LVEDP high at 35
given that he asymptomatic, ok to hold today and resume tomorrow based on cr
BP stable off ARB
follow BMP
d/w pt and cards
-
-
Date of Service: February 23, 2025
CC / HPI / ROS
-
Chief Complaint:
JUAN
History of Present Illness:
JUAN/Cr up at 1.7 s/p high risk PCI on 02/21
no fever, BP stable
wt no change
Review of Systems:
no SOB at rest, no cp
Subjectively nonoliguric
Labs
-
Labs:
WBC 5.4 10^3/uL (4.8-10.8) 02/23/25 03:40
RBC 3.43 10^6/uL (4.70-6.10) L 02/23/25 03:40
Hgb 8.5 g/dL (13.0-18.0) L 02/23/25 03:40
Hct 27.5 % (39.0-52.0) L 02/23/25 03:40
Plt Count 275 10^3/uL (130-400) D 02/23/25 03:40
Sodium 137 mmol/L (135-145) 02/23/25 03:40
Potassium 3.8 mmol/L (3.5-5.1) 02/23/25 03:40
Chloride 105 mmol/L (98-107) 02/23/25 03:40
Carbon Dioxide 29 mmol/L (22-30) 02/23/25 03:40
BUN 22 mg/dl (9-20) H 02/23/25 03:40
Creatinine 1.7 mg/dL (0.7-1.3) H 02/23/25 03:40
eGFR 41.01 02/23/25 03:40
Glucose 90 mg/dl (70-99) 02/23/25 03:40
Calcium 8.2 mg/dl (8.4-10.2) L 02/23/25 03:40
Zpd-P-Uqtddjbmylh Pept 63518 pg/ml 02/08/25 15:30
Albumin 3.3 g/dl (3.5-5.0) L 02/11/25 04:54
Physical Exam
-
Vital Signs:
Vital Signs
Temp Pulse Resp BP Pulse Ox
98.4 F 54 18 139/57 95
02/23/25 10:57 02/23/25 08:00 02/23/25 10:57 02/23/25 07:48 02/23/25 10:57
Cardiovascular:: Regular rate and rhythm
Respiratory:: Bilateral: CTA
Lung Excursion:: Normal
Abdomen:: Nontender and Soft
Bowel Sounds:: Normal
Extremity Edema:: None: Bilateral:
Norman Catheter: No
[2025-02-23] MEDS: LASIX 40 MG IV (14:40)
[2025-02-23 15:21] VITALS: BP 118/47
--- NOTE | 2025-02-23 17:00 | PTCARENOTE ---
Pt received this am with no c/o of any pain or sob. Room air sat 95%. OOB ad reece, gait steady. SB - SR, rate in the 50's to 60's.
[2025-02-23 19:31] VITALS: BP 122/56
[2025-02-23] MEDS: HYDROCORTISONE 1% CREAM 1 APPLIC TOPICAL (19:51)
[2025-02-23 22:56] VITALS: BP 133/59
--- NOTE | 2025-02-23 23:28 | PTCARENOTE ---
Assumed care on pt at 1900, aaox3, denies c/o pain or SOB, ambulating self in the room, steady gait. SR/SB on tele, HR low 60's. Pox 100% RA, lungs clear. L groin dressing CDI. Call light within reach, POC ongoing.
[2025-02-24] VITALS (9 sets, daily range): BP systolic 123–140; BP diastolic 44–66; PULSE 55; O2SAT 96; BMI 25.8
[2025-02-24 06:21] LABS: Hematocrit 27.0 % (39.0-52.0); Hemoglobin 8.4 g/dL (13.0-18.0); Mean Corp Hgb Conc. 31.1 g/dL (33.0-37.0); Mean Corpuscular Volume 81.3 fL (80.0-94.0); Platelet Count 304 10^3/uL (130-400); Red Cell Dist. Width 19.9 % (11.5-14.5)
[2025-02-24 06:38] LABS: Blood Urea Nitrogen 24 mg/dl (9-20); Calcium 8.1 mg/dl (8.4-10.2); Carbon Dioxide 28 mmol/L (22-30); Chloride 103 mmol/L (98-107); Estimated Creatinine Clearance 40 ml/min; Glucose 81 mg/dl (70-99); Potassium 4.1 mmol/L (3.5-5.1); Sodium 138 mmol/L (135-145); eGFR 41.01
[2025-02-24] MEDS: LIPITOR 80 MG PO (08:11)
[2025-02-24] MEDS: PROTONIX 40 MG PO ×2 (08:11→21:21)
[2025-02-24] MEDS: ASPIR LOW (ENTERIC COATED) 81 MG PO (08:11)
[2025-02-24] MEDS: PLAVIX 75 MG PO (08:12)
[2025-02-24] MEDS: COREG 12.5 MG PO ×2 (08:12→21:22)
[2025-02-24] MEDS: PEPCID 10 MG PO (08:12)
[2025-02-24] MEDS: CLARITIN 10 MG PO (08:12)
[2025-02-24] MEDS: HYDROCORTISONE 1% CREAM TOPICAL ×2 (08:13→21:22)
[2025-02-24] MEDS: ELIQUIS 5 MG PO ×2 (08:13→21:22)
[2025-02-24] MEDS: COLACE 100 MG PO ×2 (08:13→21:21)
[2025-02-24] MEDS: FLUSH (NSS) 2 FLUSH IV ×2 (08:14→15:43)
[2025-02-24] MEDS: LASIX 40 MG IV (08:14)
[2025-02-24] MEDS: ZITHROMAX 250 MG PO (08:23)
--- NOTE | 2025-02-24 09:08 | W.PN.NEPH.PH ---
Today's Communication / Plan
-
Continue IV Lasix despite creatinine unchanged at 1 point
Assessment/Plan
-
Assessment
JUAN
Hyponatremia
Coronary artery disease
Heart failure reduced ejection fraction 30% non-ST elevation IN
Moderate TR, severe pulmonary hypertension
Anemia
gastric ulcer
Peripheral artery disease with lower extremity stent
bronchiectasis
Plan
JUAN-cr uptrending to 1.7 with diuresis and also s/p contrast on 02/21
noted LVEDP high at 35
given that he asymptomatic, lasix back on 40mg IV,weights still too hig
BP stable off ARB
follow BMP
-
-
Date of Service: February 24, 2025
CC / HPI / ROS
-
Chief Complaint:
JUAN
History of Present Illness:
JUAN/Cr up at 1.7 s/p high risk PCI on 02/21
no fever, BP stable
wt no change
Review of Systems:
no SOB at rest, no cp
Subjectively nonoliguric
Labs
-
Labs:
WBC 5.4 10^3/uL (4.8-10.8) 02/24/25 05:58
RBC 3.32 10^6/uL (4.70-6.10) L 02/24/25 05:58
Hgb 8.4 g/dL (13.0-18.0) L 02/24/25 05:58
Hct 27.0 % (39.0-52.0) L 02/24/25 05:58
Plt Count 304 10^3/uL (130-400) 02/24/25 05:58
Sodium 138 mmol/L (135-145) 02/24/25 05:58
Potassium 4.1 mmol/L (3.5-5.1) 02/24/25 05:58
Chloride 103 mmol/L (98-107) 02/24/25 05:58
Carbon Dioxide 28 mmol/L (22-30) 02/24/25 05:58
BUN 24 mg/dl (9-20) H 02/24/25 05:58
Creatinine 1.7 mg/dL (0.7-1.3) H 02/24/25 05:58
eGFR 41.01 02/24/25 05:58
Glucose 81 mg/dl (70-99) 02/24/25 05:58
Calcium 8.1 mg/dl (8.4-10.2) L 02/24/25 05:58
Fth-X-Gxmkxpnagjv Pept 17737 pg/ml 02/08/25 15:30
Albumin 3.3 g/dl (3.5-5.0) L 02/11/25 04:54
Physical Exam
-
Vital Signs:
Vital Signs
Temp Pulse Resp BP Pulse Ox
98.5 F 61 16 133/66 96
02/24/25 06:44 02/24/25 07:00 02/24/25 06:44 02/24/25 06:49 02/24/25 06:44
Cardiovascular:: Regular rate and rhythm
Respiratory:: Bilateral: CTA
Lung Excursion:: Normal
Abdomen:: Nontender and Soft
Bowel Sounds:: Normal
Extremity Edema:: None: Bilateral:
Norman Catheter: No
--- NOTE | 2025-02-24 12:24 | W.PN.HOSP.TC ---
Today's Communication/Plan
-
CW Lasix
Assessment / Plan
Assessment / Plan
Acute Heart Failure with Reduced EF
- New diagnosis, ischemic etiology
- Echo showing LVEF 30 to 35% with global hypokinesis
- Cardiac cath showed multivessel CAD, near normal to mildly elevated right and left sided filling pressures, normal CO
- Continuing to hold losartan due to JUAN which has improved
- Beta-jenifer now with carvedilol, home metoprolol tartrate discontinued
- Continue with diuretics per cardiology currently on IV
Elevated Troponin, clinical concern for ischemia with inverted T waves in lateral leads
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
- s/p PCI 02/22
- On dual antiplatelet regimen
- Patient without chest pain
New diagnosis of paroxysmal atrial fibrillation
In SR
Initiated on Eliquis per cardiology; [id number]
Superficial thrombophlebitis:
- Occlusive thrombus in the right median and cephalic vein, likely secondary to prior peripheral IV patient accidentally pulled out
- Improving
- Continue supportive care with warm compress and elevation
- No indication for anticoagulation, patient is already on DAPT for CAD
Altered mental status:
- Resolved
- Suspect multifactorial including due to UTI and hospital delirium
- CT brain shows no acute intracranial abnormalities
- Confusion possibly due to prior antibiotic for UTI, have switched to treatment with ampicillin instead of ceftriaxone
UTI:
- Urinalysis with pyuria and bacteriuria, culture growing Enterococcus sensitive to ampicillin
- Finished abx course
JUAN:
- creatinine 1.7 today
- Baseline creatinine appears to be around 1.2
- Likely secondary to [place] based on labs
- Nephrology following, guidance appreciated
- Holding losartan
- Monitor
Hyponatremia:
- Normalized
Iron-Deficiency Anemia
Heme positive stools
Gastric ulcers
- Patient reports he did have a colonoscopy earlier this year and had a precancerous polyp removed. He was scheduled for repeat colonoscopy in December which he cancelled due to his 's illness
- Started IV iron as patient has concurrent heart failure
- Status post endoscopy 02/12 which showed nonobstructing nonbleeding gastric ulcer with a visible vessel which was injected.
- Transitioned to PPI IV twice daily 02/15, tolerating diet
- Restarted Plavix
- Hemoglobin stable around 9.0, will monitor
Severe anemia suspected secondary to acute blood loss
- hemoglobin 8.4 and patient currently was having angina and has a multivessel CAD.
- Status post transfusion of 1 unit of PRBC 02/12
- Hemoglobin improved, hemoglobin 9.7
Essential Hypertension
-Continue metoprolol
-Off of losartan due to JUAN
Hyperlipidemia
-Continue atorvastatin
Bronchiectasis -no flare
-Continue azithromycin
GERD
-Continue Pepcid
DVT proph: SCDs
Code Status: Full Code
DC when ok from cardiology standpoint
Anticipated Discharge: 24 - 48 hours
Subjective/Interval History
-
Date of Service: February 24, 2025
Denies any chest pain or shortness of breath.
Denies any dizziness.
Voices no specific complaints.
Objective Data
-
Labs:
Laboratory Results
02/24/25
05:58
WBC 5.4
Hgb 8.4 L
Hct 27.0 L
Plt Count 304
Sodium 138
Potassium 4.1
Chloride 103
Carbon Dioxide 28
BUN 24 H
Creatinine 1.7 H
Glucose 81
Calcium 8.1 L
Vital Signs:
Vital Signs
Temp Pulse Resp BP Pulse Ox
98.3 F 57 16 128/52 97
02/24/25 11:30 02/24/25 11:03 02/24/25 11:30 02/24/25 11:03 02/24/25 11:30
I&O
02/23/25 02/24/25 02/25/25
06:59 06:59 06:59
Intake Total 1272 / 1272 240 / 240
Output Total 350 / 350
Balance 922 / 922 240 / 240
Physical Exam
-
General: No Apparent Distress
HEENT: Moist Mucous Membranes
Respiratory: Clear to Auscultation and Non Labored Respirations; Negative Accessory Resp Muscle Use
Cardiac: Regular Rhythm and S1/S2; Negative Tachycardic
GI: Soft and Nontender
Musculoskeletal: Edema, Right Lower Extrem and Edema, Left Lower Extrem (improved BL LE edema)
Neuro: AO x 3
Psych: Calm
Data Reviewed
-
Labs: Labs Reviewed by me
--- NOTE | 2025-02-24 12:37 | PTCARENOTE ---
The patient is aaox3. His vital signs are stable. NSR/SB is noted on the monitor with HRs in the the 50s-60s. He has no complaints of pain, sob, or discomfort. His Left groin is OT with some ecchymosis note. His bach rash is a faint red and flat. He
refused the hydrocortisone cream. He stated that it doesn't bother him. His right arm thrombosis site has a firm small lump with redness and ecchymosis surrounding it. He states that it doesn't feel any discomfort there.
--- NOTE | 2025-02-24 13:59 | CM ---
Chart reviewed. Chart reviewed. Patient is independent of ADLS, lives alone in a 2nd floor apartment, elevator access, 0 DME. Patient is going to his daughter's house when medically stable for discharge, [address], [place].
Patient's daughter lives in a [address] . Patient's PCP, [place] Doctor, will need discharge summary faxed to [phone]. Patient O2 Sat with ambulation >90%. Plan is for the patient to go to his daughter's house with [facility]. CM to follow
--- NOTE | 2025-02-24 15:21 | W.PN.CARDCBS ---
Addendum entered and electronically signed by Светлана Beverly MD 02/24/25 22:14:
I saw and examined the patient.
The Commercial Lines Assistant's note was reviewed and I agree with the note.
Comment: Overall Wil is doing well. SOB better though did not put out much again to lasix yesterday. Off oxygen. No further CP.
Vital signs and lab work reviewed. He continues to remain in good spirits despite long hospitalization but getting frustrated with lack of progress over last 2-3 days. No acute distress, he is out of bed in a chair, regular rate, normal S1 and S2,
no murmurs, rubs or gallops, elevated JVP, fine bibasilar Rales, worse on the left base, abdomen is soft, nontender, nondistended with active bowel sounds, warm extremities without significant edema, left femoral groin access site with dressing in
place which is clean, dry and intact without evidence of hematoma or bruit.
Recommendations:
1. Patient is status post multivessel PCI doing well with no issues at the left groin site, plan to continue dual antiplatelet therapy with daily baby aspirin and Plavix for now. Hemoglobins have been stable with no bleeding issues but if hgb
continues to downtrend further, would stop ASA and cont plavix and eliquis given new pAF. High intensity statin.
2. Aggressive optimization of GDMT for underlying ischemic cardiomyopathy as renal function allows. Lowered coreg dose to 6.25mg bid from 12.5mg bid and added hydralazine 25mg tid to improved forward flow and reduce negative inotropes along with
further IV diuretics. Reassess ins/outs, weight and creat in AM. If creat remains high, consider hydral nitrate as alternate GDMT therapy until can toelrate ARB/ACei/ARNi. Consider SGLT2i before discahrge if renal fxn allows.
3. Newly on eliquis this admission for new onset pAF. Plan will be for triple therapy with aspirin, Plavix and Eliquis while hospitalized and then downgrade to Plavix and Eliquis upon discharge with close monitoring of blood counts as an
outpatient.
4. Continue to encourage incentive spirometry and out of bed to ambulation. PT OT as needed.
5. Anticipate hopeful early discharge home in the next 36 to 48 hours.
6. Outpatient cardiac rehab referral
7. Educated in regards to heart failure with reduced ejection fraction, focus on low-sodium diet, keep an eye on daily upright weights etc.
Discussed all of the above with patient at bedside. Called daughter thai to update.
Светлана Beverly MD, [facility]
Total time spent: 52mins
Original Note:
Today's Communication / Plan
-
increase IV lasix and assess response
bladder scan
hopeful for DC in AM
Impression / Plan
-
Primary Indirect Sales Representative: Dr. Funk with [employer] [facility] in [place], [place]
Impression:
Presented 02/08/2025 with SOB, LE edema
Acute HFrEF, proBNP 12,000
Newly diagnosed ischemic cardiomyopathy EF 30 to 35%
Abnormal EKG with lateral ST-T wave changes
NSTEMI, peak trop 0.1
Multivessel coronary artery disease on catheterization 02/10/2025 s/p OM1 PCI x2, LAD PCI, circ PCI 02/21/25
Paroxysmal atrial fibrillation, new diagnosis
Mild to moderate mitral regurgitation
Moderate tricuspid regurgitation with severe pulmonary hypertension, PASP 62 mmHg
Microcytic anemia with gastric ulcer by EGD 02/12/25
h/o PVD with prior LE stents
Bronchiectasis
GERD
Past smoker quit 25 years ago
Daily alcohol, 2 drinks a day
Cephalic vein thrombus
Echo 02/08/2025: EF 30-35%, global hypokinesis, mild LVH, mild to moderate MR, moderate TR, estimated PAP 62 mmHg, severe pulmonary HTN
Right/left heart cath 02/10/2025: RA 9, PA 44/15, PCWP 10, CO/CI 4.8/2.29, LVEDP 22. LAD 80% ostial stenosis. Left circumflex with OM1 severe 80 to 90% proximal stenosis, 50% mid stenosis. RCA mid 90% stenosis then chronically totally occluded
Plan:
- Presented 02/08/2025 with worsening SOB, LE edema. Admitted with acute CHF, proBNP 12,000. Also w/ chest discomfort at times w/ exertion. Trop 0.1. EF 30-35% by echo.
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
- cath was delayed due to JUAN, change in mental status, UTI with Cr which peaked at 2.1.
- underwent OM1 PCI x2, LAD PCI, and circ PCI 02/21/25
- Continues to feel well overall. No clear shortness of breath. Had LVEDP of 35 at time of cath 02/21. Received 120 mg of IV Lasix 02/22, and creatinine up from 1.4-1.7. Received 40 mg IV Lasix 02/23 and creatinine stable. Discussed with
nephrology 02/24. Will increase IV Lasix dose today and assess response. Will also make sure patient is bladder scan for retention. He remains off supplemental oxygen, and overall weight is down approximately 20 pounds from admission
- Continue ambulation with PT
- noted to have PAF 02/21 evening, new diagnosis, asymptomatic. eliquis added to DAPT for now while admitted, then on DC plan for eliquis, plavix. Remains in sinus rhythm/sinus bradycardia on review of telemetry overnight
- also had melena and underwent EGD with gastric ulcer with visible vessel, injected and treated with bipolar cauterization. hgb stable at 8.4, follow. continue PPI
- Echo 02/08 with EF newly reduced at 30-35%. GDMT as able with coreg. losartan on hold at present with RI. eventual consideration for SGLT2 inhibitor, aldactone
- RUE swelling and pain, RUE ultrasound 02/17/2025 w/ superficial thrombosis with occlusive thrombus in the cephalic vein and the median vein at the level of the antecubital fossa and proximal forearm.
- hopeful for DC in AM
- OP cardiac follow up arranged
- CBC/BMP/proBNP in 1 week
- cardiac rehab
- will need repeat echo in 90 days to reassess EF
- d/w nursing
HPI: Patient is a 79-year-old male with past medical history of PVD, bronchiectasis, GERD who presented to [facility] ER due to worsening bilateral lower extremity edema, shortness of breath, chest tightness over the past 10 days. His
January 23 he states this was a stressor for him. Over the past 10 days he has noticed he has woken up typically in the morning with some chest discomfort and shortness of breath, typically pain will dissipate by around 10 AM. He also has had
worsening lower extremity edema which he states is unusual for him. He woke up this morning at 3 AM with the chest discomfort and shortness of breath and symptoms were more severe and persisted, prompting ER evaluation. Typically he resides in
[facility] and is visiting for the . He has been seen by printed circuit board designer in [place], and daughter is working on pulling up records. On arrival to the emergency room, proBNP elevated on arrival at 12,000. EKG with evidence of
lateral T wave abnormality with no prior to compare and troponin of 0.1. Cardiology consulted for evaluation. No present chest pain. Patient is chronically on aspirin and Plavix due to history of lower extremity stents. He denies any history of
coronary stenting, heart failure, cardiomyopathy, or valvular heart disease. He reports it was 'implied' that he had arrhythmia, but no clear history.
Progress Note - Indirect Sales Representative
Subjective
Date of Service: February 24, 2025
Feeling well. No complaints
Objective
Labs:
02/24/25 05:58
02/24/25 05:58
Labs
Hgb 8.4 g/dL (13.0-18.0) L 02/24/25 05:58
Hct 27.0 % (39.0-52.0) L 02/24/25 05:58
Plt Count 304 10^3/uL (130-400) 02/24/25 05:58
PT 14.5 Sec (11.4-14.6) 02/11/25 04:54
INR 1.11 02/11/25 04:54
APTT Cancelled 02/10/25 17:26
Sodium 138 mmol/L (135-145) 02/24/25 05:58
Potassium 4.1 mmol/L (3.5-5.1) 02/24/25 05:58
BUN 24 mg/dl (9-20) H 02/24/25 05:58
Creatinine 1.7 mg/dL (0.7-1.3) H 02/24/25 05:58
Glucose 81 mg/dl (70-99) 02/24/25 05:58
Vital Signs and I&O:
Vital Signs
Temp Pulse Resp BP Pulse Ox
98.2 F 57 18 128/52 97
02/24/25 15:08 02/24/25 11:03 02/24/25 15:08 02/24/25 11:03 02/24/25 15:08
Vital Signs
Temp Pulse Resp BP Pulse Ox
98.2 F 57 18 128/52 97
02/24/25 15:08 02/24/25 11:03 02/24/25 15:08 02/24/25 11:03 02/24/25 15:08
Intake & Output
02/22/25 02/23/25 02/24/25 02/25/25
07:59 07:59 07:59 07:59
Intake Total 118 / 118 1272 / 1272 240 / 240 360 / 360
Output Total 350 / 350 350 / 350
Balance 118 / 118 922 / 922 240 / 240
Physical Exam
Physical Exam
GEN: No distress, awake, alert, oriented x3. sitting in chair
HEENT: supple, anicteric, mmm, eomi
LUNGS: CTA B/L, no wheezes/rales
CV: Reg, S1/S2, no murmur
ABD: soft, BS+, NT/ND
EXT: No cyanosis, clubbing. trace to 1+ edema of B/L LE
NEURO: Gross non-focal
SKIN: Warm, pink, dry. No rash.
[2025-02-24] MEDS: LASIX 80 MG IV (15:43)
[2025-02-24] MEDS: APRESOLINE 25 MG PO (22:33)
--- NOTE | 2025-02-25 03:23 | PTCARENOTE ---
Received pt at change of shift, aaox3, denies c/o pain or SOB. SR/SB on tele, HR low 60's. Pox 100% RA, lungs clear. Ambulating self to bathroom with, steady gait, voiding clear yellow, good output. bladder scan at beginning of shift with only 70cc.
Call light within reach, POC ongoing.
[2025-02-25 05:24] VITALS: BP 128/53
[2025-02-25 05:35] VITALS: BMI 25.3
[2025-02-25 06:14] LABS: Blood Urea Nitrogen 25 mg/dl (9-20); Calcium 8.3 mg/dl (8.4-10.2); Carbon Dioxide 30 mmol/L (22-30); Chloride 104 mmol/L (98-107); Estimated Creatinine Clearance 42 ml/min; Glucose 85 mg/dl (70-99); Potassium 3.7 mmol/L (3.5-5.1); Sodium 138 mmol/L (135-145); eGFR 44.10
[2025-02-25 07:12] VITALS: BP 133/58
--- NOTE | 2025-02-25 09:23 | W.PN.NEPH.PH ---
Today's Communication / Plan
-
Patient being discharged I would discharge him on 40 mg twice daily of life
Assessment/Plan
-
Assessment
JUAN
Hyponatremia
Coronary artery disease
Heart failure reduced ejection fraction 30% non-ST elevation CA
Moderate TR, severe pulmonary hypertension
Anemia
gastric ulcer
Peripheral artery disease with lower extremity stent
bronchiectasis
Plan
JUAN-cr down to 1.6 with diuresis and also s/p contrast on 02/21
noted LVEDP high at 35
If he is being discharged today I think he will need to go to on 40 mg twice daily of lasix
BP stable off ARB
follow BMP
-
-
Date of Service: February 25, 2025
CC / HPI / ROS
-
Chief Complaint:
JUAN
History of Present Illness:
JUAN/Cr down to 1 point s/p high risk PCI on 02/21
no fever, BP stable
wt no change
Review of Systems:
no SOB at rest, no cp
Nonoliguric
Weights down
Labs
-
Labs:
WBC 5.4 10^3/uL (4.8-10.8) 02/24/25 05:58
RBC 3.32 10^6/uL (4.70-6.10) L 02/24/25 05:58
Hgb 8.4 g/dL (13.0-18.0) L 02/24/25 05:58
Hct 27.0 % (39.0-52.0) L 02/24/25 05:58
Plt Count 304 10^3/uL (130-400) 02/24/25 05:58
Sodium 138 mmol/L (135-145) 02/25/25 05:31
Potassium 3.7 mmol/L (3.5-5.1) 02/25/25 05:31
Chloride 104 mmol/L (98-107) 02/25/25 05:31
Carbon Dioxide 30 mmol/L (22-30) 02/25/25 05:31
BUN 25 mg/dl (9-20) H 02/25/25 05:31
Creatinine 1.6 mg/dL (0.7-1.3) H 02/25/25 05:31
eGFR 44.10 02/25/25 05:31
Glucose 85 mg/dl (70-99) 02/25/25 05:31
Calcium 8.3 mg/dl (8.4-10.2) L 02/25/25 05:31
Qec-H-Jfypegwugxv Pept 51368 pg/ml 02/08/25 15:30
Albumin 3.3 g/dl (3.5-5.0) L 02/11/25 04:54
Physical Exam
-
Vital Signs:
Vital Signs
Temp Pulse Resp BP Pulse Ox
98.1 F 64 18 133/58 96
02/25/25 07:09 02/25/25 07:12 02/25/25 07:09 02/25/25 07:12 02/25/25 07:09
Cardiovascular:: Regular rate and rhythm
Respiratory:: Bilateral: CTA
Lung Excursion:: Normal
Abdomen:: Nontender and Soft
Bowel Sounds:: Normal
Extremity Edema:: None: Bilateral:
Norman Catheter: No
[2025-02-25] MEDS: ASPIR LOW (ENTERIC COATED) 81 MG PO (09:31)
[2025-02-25] MEDS: LIPITOR 80 MG PO (09:31)
[2025-02-25] MEDS: CLARITIN 10 MG PO (09:31)
[2025-02-25] MEDS: PLAVIX 75 MG PO (09:31)
[2025-02-25] MEDS: ELIQUIS 5 MG PO (09:32)
[2025-02-25] MEDS: PROTONIX 40 MG PO (09:32)
[2025-02-25] MEDS: PEPCID 10 MG PO (09:32)
[2025-02-25] MEDS: COLACE PO (09:33)
[2025-02-25] MEDS: HYDROCORTISONE 1% CREAM TOPICAL (09:33)
[2025-02-25] MEDS: APRESOLINE 25 MG PO (09:33)
[2025-02-25] MEDS: COREG 6.25 MG PO (09:34)
--- NOTE | 2025-02-25 11:23 | W.DCSUMMARY ---
Discharge Summary
Discharge Data
Date of Admission: 02/08/25
Date of Discharge: 02/25/25
-
Pending Results: No
Hospital Course
Primary diagnosis:
Multivessel coronary artery disease s/p coronary PCI with stent placement to OM1 ,ostial LAD,ostial left circumflex
Non-ST elevation myocardial infarction
Ischemic cardiomyopathy with acute heart failure with EF of 30 to 35%
New diagnosis of paroxysmal atrial fibrillation
Right upper extremity superficial thrombophlebitis
Acute kidney injury
Iron deficiency anemia
GI bleed from gastric ulcers status post endoscopy treatment
Secondary diagnosis:
Essential hypertension
Hyperlipidemia
History of bronchiectasis
Gastroesophageal reflux disease
Hospital course:
Patient who is grieving from his 2 weeks ago presented with increasing shortness of breath, chest discomfort and lower extremity edema. Diagnosed to have multivessel CAD. After discussions between cardiology and cardiothoracic surgery
above coronary interventions were performed without immediate complication.
He also had ischemic cardiomyopathy with EF of 30 to 35% and on catheterization his end-diastolic left ventricular pressure was 35 mmHg. He was started on diuretics and went home on oral diuretics.
He had episode of JUAN. His baseline creatinine was 1.3 which went up to 1.9 with a clinical concern of [place] and heart failure. His discharge creatinine was 1.6. Was followed by nephrology.
On admission he was also noted to be anemic and he was heme positive. He had an upper GI endoscopy which showed gastric ulcer with visible vessels which was injected. He needed transfusion support and was placed on PPI twice a day prior to
discharge. He would follow-up with GI as an outpatient. Stomach random biopsy was negative for H. pylori nor any malignancy.
Today he was feeling improved. His weight went down. Denies any shortness of breath or chest pain. No dizziness. Remains off of oxygen. Afebrile. Pulse is 58. Blood pressure 133/58. Chest was clear. Heart sinus (irregular.
Improved bilateral lower extremity edema. Creatinine 1.6.
Seen by cardiology and nephrology and deemed stable for discharge home.
He was discharged home with VN. Follow-up with cardiology and GI.
Consultants on board:
Interventional cardiology-Светлана Jones
GI-Vladislav Guzman
Nephrology-Arvin Fleming
Portions of this chart may have been created with voice recognition software. Occasional wrong word or 'sound alike' substitutions may have occurred due to the inherent limitations of voice recognition software.
Discharge Plan
-
Patient Disposition: Home with Home Care
Discharge Diagnosis/Procedures: CAD Angioplasty and stent x3 to Obtuse Marginal, and x1 to Left Anterior Descending arteries (02/21); ICM with CHF
Diet: Low Cholesterol and 2 Gram Sodium
Activity: As tolerated
Driving Restrictions: Not until seen by your Dr
Blood Work: BMP/CBC blood work in one week -follow results with cardiology and Gastroenterology respectively
Other Services: VN and Cardiac Rehab
Specialty Instructions: Weigh Daily- Call MD for wt gain/loss 3 lbs overnight/5 lbs in 1 week
Activity Restrictions/Additional Instructions:
Please call to make appointments for Phase II Cardiac Rehab (After PT/OT/Nursing services are completed)
1) [facility]- Cardiac Rehabilitation: [facility]
[phone] [place] [address]
Nancy MD
Instructions: *PCP/Other Mounting Inspector Heart Failure Instructions
Stand Alone Forms: DC Instructions- Cath/EP Lab
Referrals:
[facility] [Outside]
Vladislav Gregory MD [Active, Gastroenterology] - in four to six weeks
NONE,* [Family Provider, Internal Medicine]
Delmy Garcia PA-C [Specified Professional Personl, Cardiology] - 03/01/25 8:40 am
Referral Note: You have a cardiology follow-up appointment at the [place] office with Dr. Beverly's physician medical assistant ob gyn, Delmy. Please call with questions
Prescriptions:
New
carvedilol 6.25 mg Tablet
6.25 mg PO BID Qty: 60 0RF
hydralazine 25 mg Tablet
25 mg PO TID Qty: 90 0RF
pantoprazole 40 mg Tablet,Delayed Release (Dr/Ec)
40 mg PO BID Qty: 60 0RF
Eliquis 5 mg Tablet
5 mg PO BID Qty: 60 0RF
furosemide [Lasix] 40 mg tablet
40 mg PO BID Qty: 60 0RF
Continued
atorvastatin [Lipitor] 80 mg Tablet
80 mg PO DAILY
acetaminophen [Tylenol] 325 mg Tablet
650 mg PO Q6HPRN PRN (Reason: mild pain)
famotidine [Pepcid AC] 10 mg Tablet
10 mg PO DAILY
azithromycin 250 mg Tablet
250 mg PO MOWEFR
clopidogrel [Plavix] 75 mg Tablet
75 mg PO DAILY
loratadine 10 mg Tablet
10 mg PO DAILY
Discontinued
diltiazem HCl 360 mg Capsule,Extended Release 24 Hr
360 mg PO DAILY
aspirin 81 mg Tablet,Delayed Release (Dr/Ec)
81 mg PO DAILY
losartan 100 mg Tablet
100 mg PO DAILY
metoprolol tartrate 25 mg Tablet
12.5 mg PO BID
Discharge Orders:
Discharge Patient (As Directed); Ordered 02/25/25
Ordered By: Antonio Garcia
Care Plan Goals
Care Plan Goals:
Problem: Readiness for enhanced knowledge related to diagnosis and treatment plan
Goal: Understand your diagnosis and treatment plan needs, including medications if applicable.
Instructions: Know your diagnosis, underlying causes and treatment plan options, including medications if applicable. Consult with your health care team to learn about your diagnosis and treatment plan, including medications if applicable.
Discharge Date and Time
Print Language: LUXEMBOURGISH
[2025-02-25 11:45] VITALS: BP 125/57
[2025-02-25] MEDS: FLUZONE HIGH-DOSE 2025-26 0.5 ML IM (11:45)
--- NOTE | 2025-02-25 12:24 | W.PN.CARDCBS ---
Today's Communication / Plan
-
Stable cardiology status for discharge
Impression / Plan
-
Primary Medical Biller/Coder: Dr. Funk with [employer] [facility] in [place], [place]
Impression:
Presented 02/08/2025 with SOB, LE edema
Acute HFrEF, proBNP 12,000
Newly diagnosed ischemic cardiomyopathy EF 30 to 35%
Abnormal EKG with lateral ST-T wave changes
NSTEMI, peak trop 0.1
Multivessel coronary artery disease on catheterization 02/10/2025 s/p OM1 PCI x2, LAD PCI, circ PCI 02/21/25
Paroxysmal atrial fibrillation, new diagnosis
Mild to moderate mitral regurgitation
Moderate tricuspid regurgitation with severe pulmonary hypertension, PASP 62 mmHg
Microcytic anemia with gastric ulcer by EGD 02/12/25
h/o PVD with prior LE stents
Bronchiectasis
GERD
Past smoker quit 25 years ago
Daily alcohol, 2 drinks a day
Cephalic vein thrombus
Echo 02/08/2025: EF 30-35%, global hypokinesis, mild LVH, mild to moderate MR, moderate TR, estimated PAP 62 mmHg, severe pulmonary HTN
Right/left heart cath 02/10/2025: RA 9, PA 44/15, PCWP 10, CO/CI 4.8/2.29, LVEDP 22. LAD 80% ostial stenosis. Left circumflex with OM1 severe 80 to 90% proximal stenosis, 50% mid stenosis. RCA mid 90% stenosis then chronically totally occluded
Plan:
Stable cardiology status for discharge
Nephrology managing diuretic
Discussed with primary service
Follow-up has been arranged
HPI: Patient is a 79-year-old male with past medical history of PVD, bronchiectasis, GERD who presented to [facility] ER due to worsening bilateral lower extremity edema, shortness of breath, chest tightness over the past 10 days. His
January 23 he states this was a stressor for him. Over the past 10 days he has noticed he has woken up typically in the morning with some chest discomfort and shortness of breath, typically pain will dissipate by around 10 AM. He also has had
worsening lower extremity edema which he states is unusual for him. He woke up this morning at 3 AM with the chest discomfort and shortness of breath and symptoms were more severe and persisted, prompting ER evaluation. Typically he resides in
[facility] and is visiting for the . He has been seen by complaint investigator in [place], and daughter is working on pulling up records. On arrival to the emergency room, proBNP elevated on arrival at 12,000. EKG with evidence of
lateral T wave abnormality with no prior to compare and troponin of 0.1. Cardiology consulted for evaluation. No present chest pain. Patient is chronically on aspirin and Plavix due to history of lower extremity stents. He denies any history of
coronary stenting, heart failure, cardiomyopathy, or valvular heart disease. He reports it was 'implied' that he had arrhythmia, but no clear history.
Progress Note - Medical Biller/Coder
Subjective
Date of Service: February 25, 2025
No complaints
Objective
Labs:
02/24/25 05:58
02/25/25 05:31
Labs
Hgb 8.4 g/dL (13.0-18.0) L 02/24/25 05:58
Hct 27.0 % (39.0-52.0) L 02/24/25 05:58
Plt Count 304 10^3/uL (130-400) 02/24/25 05:58
PT 14.5 Sec (11.4-14.6) 02/11/25 04:54
INR 1.11 02/11/25 04:54
APTT Cancelled 02/10/25 17:26
Sodium 138 mmol/L (135-145) 02/25/25 05:31
Potassium 3.7 mmol/L (3.5-5.1) 02/25/25 05:31
BUN 25 mg/dl (9-20) H 02/25/25 05:31
Creatinine 1.6 mg/dL (0.7-1.3) H 02/25/25 05:31
Glucose 85 mg/dl (70-99) 02/25/25 05:31
Vital Signs and I&O:
Vital Signs
Temp Pulse Resp BP Pulse Ox
98.1 F 57 18 125/57 97
02/25/25 11:46 02/25/25 11:45 02/25/25 11:46 02/25/25 11:45 02/25/25 11:46
Vital Signs
Temp Pulse Resp BP Pulse Ox
98.1 F 57 18 125/57 97
02/25/25 11:46 02/25/25 11:45 02/25/25 11:46 02/25/25 11:45 02/25/25 11:46
Intake & Output
02/23/25 02/24/25 02/25/25 02/26/25
06:59 06:59 06:59 06:59
Intake Total 1272 / 1272 240 / 240 360 / 360 240 / 240
Output Total 350 / 350 1875 / 1875 200 / 200
Balance 922 / 922 240 / 240 -1515 / -1515 40 / 40
Physical Exam
Physical Exam
General: Well developed, well nourished in NAD.
Neck: Supple, no JVD, HJR, carotids +2 B/L, no bruits bilaterally.
Heart: Non displaced PMI, RRR, no murmurs, No S3, S4, no rubs.
Lungs: Scattered rhonchi
Extremities: No clubbing, cyanosis or edema bilaterally.
Neuro: Grossly nonfocal, awake, alert and oriented x3.
--- NOTE | 2025-02-25 13:26 | PTCARENOTE ---
Pt denies any discomfort, up independently in halls. Pt seen by Stacia Tirado and Jose. Telemetry and IV device removed. Discharge instructions reviewed with pt and his daughter regarding activity and driving guidelines, CHF guidelines,
wound care, medications and their possible side effects, reporting cares and concerns and follow up appt's and blood tests. Excellent understanding verbalized. Pt escorted out via wheelchair and discharged to home. Materials faxed to [facility].
== END 2025-02-25 13:05 | disposition home health service (06) | DRG 321 ==
LOC: IVU 18:54
PROVIDERS: Emergency Medicine; Internal Medicine; Internal Medicine Cardiovascular Disease; Internal Medicine Gastroenterology; Internal Medicine Interventional Cardiology; Nurse Practitioner; Nurse Practitioner Family; Nurse Practitioner Gerontology; Physician Assistant; Physician Assistant Medical; ADMITTING PHYSICIAN Internal Medicine; CONSULT PHYSICIAN Nuclear Medicine Nuclear Cardiology; CONSULT PHYSICIAN Specialist; CONSULT PHYSICIAN Thoracic Surgery (Cardiothoracic Vascular Surgery); EMERGENCY PHYSICIAN Emergency Medicine
PROC: 4A023N8 Measurement of Cardiac Sampling and Pressure, Bilateral, Percutaneous Approach (ICD-10-PCS; 2025-02-10)
PROC: B2111ZZ Fluoroscopy of Multiple Coronary Arteries using Low Osmolar Contrast (ICD-10-PCS; 2025-02-10)
PROC: 30233N1 Transfusion of Nonautologous Red Blood Cells into Peripheral Vein, Percutaneous Approach (ICD-10-PCS; 2025-02-12)
PROC: 0W3P8ZZ Control Bleeding in Gastrointestinal Tract, Via Natural or Artificial Opening Endoscopic (ICD-10-PCS; 2025-02-12)
PROC: 0DB68ZX Excision of Stomach, Via Natural or Artificial Opening Endoscopic, Diagnostic (ICD-10-PCS; 2025-02-12)
PROC: 4A023N7 Measurement of Cardiac Sampling and Pressure, Left Heart, Percutaneous Approach (ICD-10-PCS; 2025-02-21)
PROC: 027237Z Dilation of Coronary Artery, Three Arteries with Four or More Drug-eluting Intraluminal Devices, Percutaneous Approach (ICD-10-PCS; 2025-02-21)
PROC: B241ZZ3 Ultrasonography of Multiple Coronary Arteries, Intravascular (ICD-10-PCS; 2025-02-21)
PROC: 3E02340 Introduction of Influenza Vaccine into Muscle, Percutaneous Approach (ICD-10-PCS; 2025-02-25)
DX: I21.4 Non-ST elevation (NSTEMI) myocardial infarction (principal); I50.21 Acute systolic (congestive) heart failure; K25.0 Acute gastric ulcer with hemorrhage; N17.9 Acute kidney failure, unspecified; D62 Acute posthemorrhagic anemia; N39.0 Urinary tract infection, site not specified; E87.1 Hypo-osmolality and hyponatremia; I82.611 Acute embolism and thrombosis of superficial veins of right upper extremity; F05 Delirium due to known physiological condition; I25.10 Atherosclerotic heart disease of native coronary artery without angina pectoris; I48.0 Paroxysmal atrial fibrillation; I25.5 Ischemic cardiomyopathy; I80.8 Phlebitis and thrombophlebitis of other sites; D50.9 Iron deficiency anemia, unspecified; I11.0 Hypertensive heart disease with heart failure; E78.00 Pure hypercholesterolemia, unspecified; J47.9 Bronchiectasis, uncomplicated; N26.1 Atrophy of kidney (terminal); K21.9 Gastro-esophageal reflux disease without esophagitis; I08.1 Rheumatic disorders of both mitral and tricuspid valves; I73.9 Peripheral vascular disease, unspecified; R09.02 Hypoxemia; I27.20 Pulmonary hypertension, unspecified; T50.8X5A Adverse effect of diagnostic agents, initial encounter; Z63.4 Disappearance and death of family member; Z86.0109 Personal history of other colon polyps; Z11.52 Encounter for screening for COVID-19; Z95.820 Peripheral vascular angioplasty status with implants and grafts; Z87.891 Personal history of nicotine dependence; Z79.82 Long term (current) use of aspirin; Z79.02 Long term (current) use of antithrombotics/antiplatelets; Z23 Encounter for immunization
CPT/HCPCS: 70450; 71045; 71046; 71250; 80048; 80053; 80061; 81003; 81015; 82248; 82570; 82728; 82962; 83036; 83540; 83550; 83605; 83735; 83880; 84300; 84443; 84484; 85014; 85018; 85025; 85027; 85347; 85576; 85610; 85730; 86850; 86870; 86900; 86901; 86902; 86905; 86920; 86922; 87077; 87086; 87186; 87811; 88305; 88342; 90662; 92978; 92979; 93005; 93306; 93458; 93460; 93880; 93970; 93971; 96374; 96375; 97116; 97129; 97163; 97167; 97530; 97535; 99152; 99153; 99285; C1725; C1753; C1760; C1769; C1874; C1894; C9600; G0008; J2916; P9016; Q9967